=== PATIENT | female | born 1955 | race Caucasian/White ===

== ENCOUNTER → 2017-10-25 11:45 | Outpatient (CLI) | payer OTHER, SELFPAY ==
[2017-10-28 09:06] LABS: HPV APTIMA, High Risk Negative (Negative)
== END ==
PROVIDERS: Family Provider Family Medicine; PCP Family Medicine; Visit Provider Nurse Practitioner Women's Health
DX: Z12.4 Encounter for screening for malignant neoplasm of cervix (principal)
CPT/HCPCS: 88175; G0145

== ENCOUNTER → 2017-11-18 15:31 | Outpatient (CLI) | payer OTHER, SELFPAY ==
--- NOTE | 2017-11-18 15:34 | BI_ITS ---
MAMMOGRAPHY - BILATERAL SCREENING REASON FOR EXAM: Female, 62 years old. Routine annual screening examination. PERTINENT HISTORY: Non-contributory. TECHNIQUE: Digital bilateral breast an (3D mammographic acquisition) in the CC and MLO projections. 2-D mediolateral oblique (MLO) and craniocaudad (CC) views of both breasts were obtained. CAD: Full Field Digital Mammography with Computer Added Detection was performed. COMPARISON: Comparison is made with prior EXAMINATION dated October 20, 2016. FINDINGS: Breast Composition: The breasts are almost entirely fatty. There are no dominant masses or suspicious calcifications. There are stable small benign appearing bilateral axillary lymph nodes. No other significant abnormalities are identified. There has been no significant change since the prior study. BI/SCREENING MAMM (CAD), BILAT IMPRESSION: Stable bilateral screening mammogram. Yearly follow-up mammogram recommended. (A) ASSESSMENT CATEGORY: BIRADS Category 1: Negative. A letter regarding these results will be sent to the patient by the facility within 30 days. Approximately 10% of breast cancers are not detected by mammography. A normal mammogram should not delay biopsy of a clinically suspicious abnormality. [id number] Electronically Signed: Donnie Marie MD at 10:26 EDT Tel [phone], Service support ,
--- NOTE | 2017-11-18 15:37 | BD_ITS ---
STUDY: DUAL ENERGY X-RAY ABSORPTIOMETRY / DXA REASON FOR EXAM: Female, 62 years old. Postmenopausal female. Patient taking calcium and multivitamins. TECHNIQUE: Bone Mineral Density (BMD) measurements of the lumbar spine were obtained. COMPARISON: None. FINDINGS: Lumbar Spine (L1-L4): g/cm2 (1.412) / T-score (1.9) / Z-score (3.3) Findings are suggestive of normal bone density with a fracture risk. BD/Dexa Bone Density Study IMPRESSION: The patient is considered normal as outlined below according to World Felice Organization (WHO) criteria with a low fracture risk. Reference Information: The T-score is the number of standard deviations above or below the standard which is normal for young adults at their peak bone mineral density. The World Health Organization (WHO) interprets the T-scores as follows: Above -1 Normal bone density Between -1 and -2.5 Osteopenia Equal to / or below -2.5 Osteoporosis As a practical clinical guideline, osteopenia may be graded as follows: Mild -1 through -1.5 Moderate -1.6 through -2.0 Severe -2.1 through -2.4 The Z-score is the number of standard deviations above or below age-matched controls. A Z-score of less than -1.5 would be considered abnormal. References: 1. NIH Osteoporosis and Related Bone Diseases http://www.osteo.org 2. International Society for Clinical Densitometry http://www.iscd.org 3. National Osteoporosis Foundation http://www.nof.org Electronically Signed: Luis Armando Deleon DO at 9:06 EDT Tel [phone], Service support ,
== END ==
PROVIDERS: Family Provider Family Medicine; PCP Family Medicine; Visit Provider Nurse Practitioner Women's Health
DX: Z12.31 Encounter for screening mammogram for malignant neoplasm of breast (principal); Z78.0 Asymptomatic menopausal state
CPT/HCPCS: 77063; 77067; 77080

== ENCOUNTER → 2017-11-26 15:30 | Outpatient (CLI) | payer OTHER, SELFPAY ==
[2017-11-26 18:00] LABS: AST(SGOT) 29 U/L (15-37); Alanine Aminotransfer ALT/SGPT 52 U/L (13-56); Albumin, Serum 3.9 g/dL (3.2-5.0); Alkaline Phosphatase 75 U/L (45-117); Bilirubin, Direct 0.09 mg/dL (0.00-0.30); GGTP 29 U/L (5-55); Globulin 3.8 g/dL (2.2-4.2); Protein, Total 7.7 g/dL (6.4-8.2)
== END ==
PROVIDERS: Family Provider Family Medicine; PCP Family Medicine; Visit Provider Internal Medicine Gastroenterology
DX: K76.0 Fatty (change of) liver, not elsewhere classified (principal)
CPT/HCPCS: 36415; 80076; 82977

== ENCOUNTER → 2017-12-03 18:03 | Outpatient (CLI) | payer OTHER, SELFPAY ==
--- NOTE | 2017-12-03 12:13 | COLBX_PTH ---
PATIENT: JAMIE JAVIER [facility] U#:[id number] AGE/SX: 70/F ROOM: RE12/03/[address]: Dr. Fito Ahumada MD : 1955 BED: DIS: SPEC #: [id number] RECD: 12/03/17 15:28 STATUS: VALDEZ TIARA #: [id number] SJ: 12/03/17 12:[address]: Fito Ahumada DEPT: SURGICAL PATHOLOGY RECD BY: Leonid Johns ENTERED: 12/06/17 07:30 SP TYPE: COLON BX OTHR DR: Danielle Liu PA-C [facility] Tissues: Rectum, NOS Procedures: Surgery Specimen Level IV HEADER OPERATION: Colonoscopy PRE-OP DIAGNOSIS: Screening/polyp TISSUE SUBMITTED: Rectum polyp biopsies, rule out adenoma MICROSCOPIC DIAGNOSIS Rectum polyp, biopsy: Hyperplastic polyp. SJ:ervin 12/07/17 MICROSCOPIC DESCRIPTION Slides are reviewed. GROSS DESCRIPTION Received in fixative is one container labeled with the patient's name and designated rectal polyp biopsy. The specimen consists of one irregular fragment of light brasher soft tissue that measures 0.4 x 0.2 x 0.1 cm. The specimen is totally submitted in one cassette. / SJ:ervin 12/06/17 TC:1 CPT: 77192
== END ==
PROVIDERS: Family Provider Family Medicine; PCP Family Medicine; Visit Provider Internal Medicine Gastroenterology
DX: Z12.11 Encounter for screening for malignant neoplasm of colon (principal); K62.1 Rectal polyp
CPT/HCPCS: 88305

== ENCOUNTER → 2018-11-21 | Outpatient (CLI) | payer OTHER, SELFPAY ==
[2018-11-01 08:15] VITALS: BMI 32.4
--- NOTE | 2018-11-21 08:19 | BI_ITS ---
MAMMOGRAPHY - BILATERAL DIAGNOSTIC REASON FOR EXAM: Female, 63 years old. PERTINENT HISTORY: Non-contributory. TECHNIQUE: Digital examination. Mediolateral oblique (MLO) and craniocaudad (CC) views of both breasts were obtained. CAD: CAD was performed on this study. COMPARISON: November 18, 2017. FINDINGS: Breast Composition: The breasts are almost entirely fatty. There are no dominant masses or suspicious calcifications. There are stable findings compatible with subcentimeter typically benign appearing intramammary lymph nodes. There are typically benign appearing calcifications. No other significant abnormalities are identified. BI/SCREEN MAMM (CAD) W/MARIA E BILAT IMPRESSION: Stable bilateral diagnostic mammogram. ASSESSMENT CATEGORY: BIRADS Category 2: Benign. A letter regarding these results will be sent to the patient by the facility within 30 days. FOLLOW UP RECOMMENDATION: Yearly follow up mammogram recommended. (A) Approximately 10% of breast cancers are not detected by mammography. A normal mammogram should not delay biopsy of a clinically suspicious abnormality. Electronically Signed: Mandeep Hamilton MD at 10:50 EDT , Service support ,
== END | disposition home or self-care (01) ==
LOC: OPBI 08:18
PROVIDERS: Family Provider Family Medicine; PCP Family Medicine; Referring Provider Nurse Practitioner Women's Health; Visit Provider Nurse Practitioner Women's Health
DX: Z12.31 Encounter for screening mammogram for malignant neoplasm of breast (principal)
CPT/HCPCS: 77063; 77067

== ENCOUNTER → 2019-11-23 07:34 | Outpatient (CLI) | payer SELFPAY ==
[2018-11-01 08:15] VITALS: BMI 32.4
--- NOTE | 2019-11-23 07:36 | BI_ITS ---
MAMMOGRAPHY - BILATERAL SCREENING REASON FOR EXAM: Female, 64 years old. Routine annual screening examination. PERTINENT HISTORY: Non-contributory. TECHNIQUE: Digital bilateral breast maria e (3D mammographic acquisition) in the CC and MLO projections. 2-D mediolateral oblique (MLO) and craniocaudad (CC) views of both breasts were obtained. CAD: Full Field Digital Mammography with Computer Added Detection was performed. COMPARISON: Comparison is made with prior study dated November 21, 2018 and November 18, 2017. FINDINGS: Breast Composition: The breasts are almost entirely fatty. There are no dominant masses or suspicious calcifications. No other significant abnormalities are identified. There has been no significant change since the prior study. BI/SCREEN MAMM (CAD) W/MARIA E BILAT IMPRESSION: Stable bilateral screening mammogram. Yearly follow-up mammogram recommended. (A) ASSESSMENT CATEGORY: BIRADS Category 1: Negative. A letter regarding these results will be sent to the patient by the facility within 30 days. Approximately 10% of breast cancers are not detected by mammography. A normal mammogram should not delay biopsy of a clinically suspicious abnormality. [id number] Electronically Signed: Donnie Marie, at 8:58 EDT , Service support ,
== END ==
PROVIDERS: Family Provider Family Medicine; PCP Family Medicine; Referring Provider Nurse Practitioner Women's Health; Visit Provider Nurse Practitioner Women's Health
DX: Z12.31 Encounter for screening mammogram for malignant neoplasm of breast (principal)
CPT/HCPCS: 77063; 77067

== ENCOUNTER → 2020-11-26 07:37 | Outpatient (CLI) | payer MEDICARE, SELFPAY ==
[2019-11-23 08:15] VITALS: BMI 32.4
--- NOTE | 2020-11-26 07:39 | BI_ITS ---
MAMMOGRAPHY - BILATERAL SCREENING REASON FOR EXAM: Female, 65 years old. Routine annual screening examination. PERTINENT HISTORY: Non-contributory. Occasional right lateral breast soreness. TECHNIQUE: Digital bilateral breast maria e (3D mammographic acquisition) in the CC and MLO projections. 2-D mediolateral oblique (MLO) and craniocaudad (CC) views of both breasts were obtained. CAD: Full Field Digital Mammography with Computer Added Detection was performed. COMPARISON: Comparison is made with prior study of 11/23/2019 and 11/21/2018. FINDINGS: Breast Composition: There are scattered areas of fibroglandular density. There are no dominant masses or suspicious calcifications. Stable small benign-appearing bilateral axillary lymph nodes. No other significant abnormalities are identified. There has been no significant change since the prior study. BI/SCRN MAMM (CAD)W/MARIA E BILAT IMPRESSION: Stable bilateral screening mammogram. Yearly follow-up mammogram recommended. (A) ASSESSMENT CATEGORY: BIRADS Category 2: Benign. A letter regarding these results will be sent to the patient by the facility within 30 days. Approximately 10% of breast cancers are not detected by mammography. A normal mammogram should not delay biopsy of a clinically suspicious abnormality. [id number] Electronically Signed: Donnie Marie MD at 8:24 EDT , Service support ,
[2020-11-28 18:37] LABS: HPV Reflexed? NOT INDICATED
== END ==
PROVIDERS: PCP Family Medicine; Referring Provider Family Medicine; Visit Provider Family Medicine
DX: Z12.31 Encounter for screening mammogram for malignant neoplasm of breast (principal); Z13.820 Encounter for screening for osteoporosis; Z12.4 Encounter for screening for malignant neoplasm of cervix
CPT/HCPCS: 77063; 77067; 88175; G0145

== ENCOUNTER → 2021-04-29 08:11 | Outpatient (CLI) | payer MEDICARE, SELFPAY ==
--- NOTE | 2021-04-29 08:25 | RAD_ITS ---
PROCEDURE: Fluoroscopic guided right shoulder Injection DATE: 04/29/2021. INDICATION: Female, 66 years old. Chronic right shoulder pain. PHYSICIAN: Donnie Marie M.D. MEDICATIONS: 12 mg of BETAMETHASONE and 4 cc of 1% LIDOCAINE. 2% lidocaine administered subcutaneously for local anesthesia. ACCESS SITE: Right shoulder. NEEDLE: 22-gauge spinal needle. FLUOROSCOPY TIME (if supplied): (0:54) minutes/seconds. One image was submitted. FINDINGS: The risks, benefits, and alternatives to the procedure were explained to the patient. The specific risks of bleeding, infection, and neurovascular injury were detailed and accepted. Witnessed informed consent was obtained. A 22-gauge spinal needle was positioned under radiographic fluoroscopic localization. Approximately 2 cc of ISOVUE-300 instilled for localization purposes. Medication was then injected. The patient tolerated the procedure well without any immediate complications. RAD/Inj/Asp Rene Jt Should/Hip/Knee IMPRESSION: 1. Successful fluoroscopic guided right shoulder injection. Electronically Signed: Donnie Marie MD at 9:04 EDT , Service support ,
[2021-04-29] MEDS: Betamethasone/Betamethasone 30 MG/5 ML Vial 12 MG INTRAARTIC (08:40)
[2021-04-29] MEDS: Lidocaine 2% (5ml sdv) 5 ML VIAL.MPF 1 ML INFILT (08:40)
[2021-04-29] MEDS: Lidocaine 1% (5 ml sdv) 5 ML Vial 4 ML OPERA.SITE (08:40)
== END ==
PROVIDERS: PCP Family Medicine; Referring Provider Specialist; Visit Provider Specialist
DX: M19.011 Primary osteoarthritis, right shoulder (principal)
CPT/HCPCS: 20610; 77002; Q9965; J0702

== ENCOUNTER → 2021-11-27 | Outpatient (CLI) | payer MEDICARE, SELFPAY ==
--- NOTE | 2021-11-27 07:52 | BI_ITS ---
MAMMOGRAPHY - BILATERAL SCREENING REASON FOR EXAM: Female, 66 years old. Routine annual screening examination. PERTINENT HISTORY: Non-contributory. TECHNIQUE: Digital bilateral breast maria e (3D mammographic acquisition) in the CC and MLO projections. 2-D mediolateral oblique (MLO) and craniocaudad (CC) views of both breasts were obtained. CAD: Full Field Digital Mammography with Computer Added Detection was performed. COMPARISON: Comparison is made with prior study of 11/26/2020 and 11/23/2019. FINDINGS: Breast Composition: There are scattered areas of fibroglandular density. There are no dominant masses or suspicious calcifications. Stable small benign appearing bilateral axillary nodes. No other significant abnormalities are identified. There has been no significant change since the prior study. BI/SCRN MAMM (CAD)W/MARIA E BILAT IMPRESSION: Stable bilateral screening mammogram. Yearly follow-up mammogram recommended. (A) ASSESSMENT CATEGORY: BIRADS Category 2: Benign. A letter regarding these results will be sent to the patient by the facility within 30 days. Approximately 10% of breast cancers are not detected by mammography. A normal mammogram should not delay biopsy of a clinically suspicious abnormality. [id number] Electronically Signed: Donnie Marie MD at 8:51 EDT ,
== END | disposition home or self-care (01) ==
LOC: OPBI 07:50
PROVIDERS: PCP Family Medicine; Visit Provider Nurse Practitioner Women's Health
DX: Z12.31 Encounter for screening mammogram for malignant neoplasm of breast (principal)
CPT/HCPCS: 77063; 77067

== ENCOUNTER → 2021-12-10 | Outpatient (CLI) | payer MEDICARE, SELFPAY ==
--- NOTE | 2021-12-10 10:48 | BD_ITS ---
STUDY: DUAL ENERGY X-RAY ABSORPTIOMETRY / DXA REASON FOR EXAM: Female, 66 years old. Postmenopausal TECHNIQUE: Bone Mineral Density (BMD) measurements of lumbar spine and bilateral hips were obtained. COMPARISON: Comparison is made with prior study of 11/18/2017. FINDINGS: Lumbar Spine (L1-L4): g/cm2 (1.220) / T-score (1.8) / Z-score (3.7) Findings are suggestive of normal bone density with a low fracture risk. Left Femur Total: g/cm2 (1.099) / T-score (1.3) / Z-score (2.6) Left Femoral Neck: g/cm2 (0.966) / T-score (1.1) / Z-score (2.7) Right Femur Total: g/cm2 (1.087) / T-score (1.2) / Z-score (2.5) Right Femoral Neck: g/cm2 (0.938) / T-score (0.8) / Z-score (2.4) The T-Scores on the most recent prior examination were: Lumbar Spine (L1-L4): There has been worsening of bone density since the previous examination. Left Femur Total: which represents a worsening of 5%. Right Femur Total: which represents a worsening of 5.2%. BD/Dexa Bone Density Study IMPRESSION: The patient is considered normal as outlined below according to World Felice Organization (WHO) criteria with a low fracture risk. There has been worsening of bone density since the previous examination. Reference Information: The T-score is the number of standard deviations above or below the standard which is normal for young adults at their peak bone mineral density. The World Health Organization (WHO) interprets the T-scores as follows: Above -1 Normal bone density Between -1 and -2.5 Osteopenia Equal to / or below -2.5 Osteoporosis As a practical clinical guideline, osteopenia may be graded as follows: Mild -1 through -1.5 Moderate -1.6 through -2.0 Severe -2.1 through -2.4 The Z-score is the number of standard deviations above or below age-matched controls. A Z-score of less than -1.5 would be considered abnormal. References: 1. NIH Osteoporosis and Related Bone Diseases www osteo.org 2. International Society for Clinical Densitometry www iscd.org 3. National Osteoporosis Foundation www nof.org Electronically Signed: Donnie Marie MD at 10:49 EDT ,
== END | disposition home or self-care (01) ==
LOC: OPBD 10:39
PROVIDERS: PCP Family Medicine; Visit Provider Nurse Practitioner Women's Health
DX: Z78.0 Asymptomatic menopausal state (principal)
CPT/HCPCS: 77080

== ENCOUNTER 2022-08-12 09:17 | Emergency (ER) | payer MEDICARE, SELFPAY ==
[2022-08-12] VITALS (12 sets, daily range): BP systolic 147–164; BP diastolic 74–91; PULSE 75–105; RESP 13–24; TEMP 37.1; O2SAT 91–96; BMI 33.1
--- NOTE | 2022-08-12 09:30 | CT_ITS ---
STUDY: CT BRAIN WITHOUT CONTRAST REASON FOR EXAM: Female, 67 years old. Paresthesias RADIATION DOSAGE (If Supplied By Facility): CTDIvol = ( 44.99 ) mGy, DLP = ( 796.11 ) mGycm TECHNIQUE: Transaxial CT imaging of the brain was performed without administration of intravenous contrast material. Individualized dose optimization techniques were used for this CT. COMPARISON: No relevant priors. FINDINGS: Normal soft tissue structures. Normal calvarium. Normal size ventricles and extra-axial spaces for the patient''s age. Normal white matter tracts of the cerebral hemispheres. Normal basal ganglia and thalami. Normal brainstem. Normal cerebellum. There is no intracranial hemorrhage. There are no findings of an acute ischemic infarction. Normal visualized paranasal sinuses. CT/Brain/Head without Contrast IMPRESSION: Normal unenhanced CT scan of the brain. Electronically Signed: Donnie Marie MD at 10:41 EST ,
--- NOTE | 2022-08-12 09:37 | EX.ED.DYSGE1 ---
HPI History of Present Illness Chief Complaint: Neuro S/Sx Informant: patient Onset/Context/Timing Onset: Yesterday Current Severity: Mild Maximum Severity: Mild Narrative Narrative: Patient presents secondary to lower extremity paresthesias and weakness. She states she noted numbness and tingling in both feet last evening. She states she does have some numbness and tingling up into her legs today but it is not as severe as what is in her feet. She is able to walk but states she is having more difficulty doing so. She denies back pain. No fever or chills. She had right shoulder surgery 5 weeks ago and had the shingles vaccine on August 03. [facility] Medical History Anxiety Bone spur of left foot GERD (gastroesophageal reflux disease) Hyperlipidemia Hypertension Narcolepsy Home Medications calcium phosphate 250 mg-vit D3 12.5 mcg (500 unit) chewable tablet (Citracal-D3 Gummies) tab PO 10/25/17 [History Last Taken Unknown] qqsqzwogcmm-mrp-qiynzksim-hrb 149-hyalur 500 mg-500 mg-66.7 mg tablet (Ytjbojjyepe-Odcveykvkgk-ZOV (with antiox)) tab PO 10/25/17 [History Last Taken Unknown] hydrochlorothiazide 25 mg tablet 25 mg PO QAM 10/25/17 [History Last Taken Unknown] lisinopril 10 mg tablet 10 mg PO QDAY 10/25/17 [History Last Taken Unknown] omega-3 fatty acids 1,000 mg capsule (Fish Oil Concentrate) 1,000 mg PO QDAY 10/25/17 [History Last Taken Unknown] omeprazole 20 mg capsule,delayed release 20 mg PO QDAY 10/25/17 [History Last Taken Unknown] paroxetine HCl 20 mg tablet 20 mg PO QAM 10/25/17 [History Last Taken Unknown] simvastatin 10 mg tablet 10 mg PO QPM 10/25/17 [History Last Taken Unknown] vitamin E (dl, acetate) 180 mg (400 unit) capsule 400 unit PO QDAY 10/25/17 [History Last Taken Unknown] docosahexaenoic acid 200 mg capsule ( DHA) mg PO 11/26/20 [History Last Taken Unknown] modafinil 100 mg tablet 200 mg PO DAILY 11/26/20 [History Last Taken Unknown] turmeric root extract 1,053 mg tablet 1,076 mg PO DAILY 11/26/20 [History Last Taken Unknown] Allergy/AdvReac Type Severity Reaction Status Date / Time No Known Allergies Allergy Verified 08/12/22 09:19 Family History Father Cirrhosis of liver Surgical History Hx of foot surgery S/p bilateral carpal tunnel release S/P right knee arthroscopy S/P tonsillectomy Status post left partial knee replacement Status post right partial knee replacement Social History Smoking Status: Never smoker alcohol intake: current alcohol intake frequency: holidays/special occasions only details: none substance use type: does not use caffeine: Yes what type of physical activity do you participate in: walking seatbelt use: always do you feel safe at home: Yes additional social history: - Leonid- Self employed in [employer] 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[employer] ROS ROS ED Constitutional Constitutional ED: Denies chills or fever(s) Eyes Eyes: Denies change in vision or discharge from eye(s) ENT ENT ED: Denies discharge from eye(s), rhinorrhea or sore throat Cardiovascular Cardiovascular: Denies chest pain or palpitations Respiratory/Chest Respiratory/Chest: Denies cough or dyspnea Gastrointestinal Gastrointestinal: Denies abdominal pain, diarrhea, nausea or vomiting Genitourinary Genitourinary ED: Denies difficulty urinating or dysuria Musculoskeletal Musculoskeletal: Denies back pain or extremity pain Integumentary Denies Abrasions or rash Neurologic Neurologic: Reports paresthesias and weakness; Denies headache(s) Psychiatric Psychiatric: Denies anxiety or depression Allergic/Immunologic Allergic/Immunologic ED: Denies lip swelling or urticaria EXAM Physical Exam Const Vital Signs: 08/12/22 09:19 08/12/22 12:00 08/12/22 13:50 Temperature 98.8 F Temperature Source Oral Pulse Rate 105 H 95 95 Respiratory Rate 24 H 16 16 Blood Pressure 157/91 H 164/89 H 149/86 H Blood Pressure Mean 113 114 107 Pulse Ox 94 96 92 Oxygen Delivery Method Room Air Room Air 08/12/22 14:24 Temperature Temperature Source Pulse Rate 97 Respiratory Rate 16 Blood Pressure 147/75 H Blood Pressure Mean 99 Pulse Ox 93 Oxygen Delivery Method Room Air Positive well nourished and well developed General Appearance ED: well developed HEENT Reports normocephalic and head/scalp atraumatic Eyes PERRL and EOMs intact bilaterally Neck supple Chest Wall inspection of chest normal and palpation of chest normal Resp normal respiratory effort and clear to auscultation bilaterally Cardio regular rate and regular rhythm GI normal to inspection, nondistended, normoactive bowel sounds Palpation: soft Extremity normal to inspection Neuro oriented x3 Neuro Narrative: Patient reports decreased sensation to light touch bilateral feet. Good pulses are noted. Good strength is noted in the lower extremities on testing. Decreased bilateral patellar reflexes. Sensorium / Orientation: alert Psych mental status grossly normal Skin no rashes or lesions noted MDM MDM MDM Narrative Medical decision making narrative: Lab work obtained to evaluate for electrolyte abnormality or infection. CT scan of the head obtained. EKG obtained. Lab Data Attestation: I reviewed the patient's lab results. Labs: Laboratory Results - last 24 hr 08/12/22 08/12/22 08/12/22 09:26 09:45 09:45 WBC 7.1 RBC 4.40 Hgb 13.8 Hct 42.0 MCV 95.5 MCH 31.4 MCHC 32.9 RDW Std Deviation 49.7 H RDW Coeff of Yousuf 14.3 Plt Count 262 MPV 9.1 Immature Gran % (Auto) 1.300 H Neut % (Auto) 83.8 H Lymph % (Auto) 9.4 L [place] % (Auto) 4.2 Eos % (Auto) 0.7 Baso % (Auto) 0.6 Absolute Neuts (auto) 6.0 Absolute Lymphs (auto) 0.67 L Nucleated RBC % 0 ESR 28 PT 13.0 INR 1.0 APTT 41.1 H Sodium Potassium Chloride Carbon Dioxide Anion Gap BUN Creatinine Estim Creat Clear Calc Est GFR (MDRD) Af Amer Est GFR (MDRD) Non-Af BUN/Creatinine Ratio Glucose Calcium C-React Prot Ext Range Urine Color Urine Clarity Urine pH Ur Specific [place] Urine Protein Urine Glucose (UA) Urine Ketones Urine Occult Blood Urine Nitrite Urine Bilirubin Urine Urobilinogen Ur Leukocyte Esterase Urine RBC Urine WBC Ur Squamous Epith Cells Urine Bacteria Urine Mucus POC Glucose 143 H 08/12/22 08/12/22 09:45 12:00 WBC RBC Hgb Hct MCV MCH MCHC RDW Std Deviation RDW Coeff of Yousuf Plt Count MPV Immature Gran % (Auto) Neut % (Auto) Lymph % (Auto) [place] % (Auto) Eos % (Auto) Baso % (Auto) Absolute Neuts (auto) Absolute Lymphs (auto) Nucleated RBC % ESR PT INR APTT Sodium 139 Potassium 3.9 Chloride 105 Carbon Dioxide 28.0 Anion Gap 6 BUN 20 H Creatinine 0.91 Estim Creat Clear Calc 58.34 Est GFR (MDRD) Af Amer 79 Est GFR (MDRD) Non-Af 65 BUN/Creatinine Ratio 21.9 H Glucose 152 H Calcium 9.5 C-React Prot Ext Range 8.56 H Urine Color Yellow Urine Clarity Sl. Cloudy Urine pH 8.0 Ur Specific [place] 1.010 Urine Protein 15 H Urine Glucose (UA) Normal Urine Ketones Negative Urine Occult Blood 10 H Urine Nitrite Positive H Urine Bilirubin Negative Urine Urobilinogen Normal Ur Leukocyte Esterase 500 H Urine RBC 0-5 SEEN Urine WBC 25-50 SEEN Ur Squamous Epith Cells 0 SEEN Urine Bacteria 1+ Urine Mucus 0 SEEN POC Glucose Radiography Diagnostic Testing: Clinical Impression(s) from Imaging Studies Brain CT 08/12/22 09:30 IMPRESSION: Normal unenhanced CT scan of the brain. Electronically Signed: Donnie Marie MD at 10:41 EST , EKG Initial EKG: Attestation: I personally reviewed and interpreted this EKG as follows: Interpretation: Sinus Rhythm (Sinus at 99 with no acute ischemia.) Treatment and Re-Evaluation Narrative: My initial concern would evaluate the patient was for Guillain-Godinez? syndrome. CT scan of the head is obtained and reveals no acute abnormalities. She denies any back pain. CBC reveals normal white count at 7.1 with 83% neutrophils. Coags are unremarkable. Chemistry studies are normal. Sed rate is 28 and CRP is 8.56. I did observe the patient going down the garcia to the restroom several times during her visit. She is holding onto her to help ambulate. In light of this urinalysis is obtained and does reveal infection. She has positive nitrites with 25-50 white cells and 1+ bacteria. Patient has been given a dose of IV Rocephin and urine culture was sent. I obtained a virtual neurology consult. 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 He feels the patient should be admitted and observed at a facility that has inpatient neurology available to do repeated neurology exams and a lumbar puncture. I do not have in-house radiologist today to obtain a fluoroscopic guided lumbar puncture. This was discussed with patient and at bedside. She would prefer to go to [facility]. I spoke with neurology at [facility] and patient has been accepted. He does not feel that any further testing needs to be performed at this time, test when the patient gets to the [facility] facility. Patient be signed out to oncoming physician for further monitoring while awaiting transfer bed. 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 Prescriptions: No Action omeprazole 20 mg capsule,delayed release(DR/EC) 20 mg PO QDAY paroxetine HCl 20 mg tablet 20 mg PO QAM simvastatin 10 mg tablet 10 mg PO QPM lisinopril 10 mg tablet 10 mg PO QDAY hydrochlorothiazide 25 mg tablet 25 mg PO QAM caegbxsdlpz-hwy-tnphefjzn-hrb 149-hyalur 500 mg-500 mg-66.7 mg tablet 500-500-66.7 mg tablet PO calcium phosphate-vitamin D3 [Citracal-D3 Gummies] 250 mg calcium- 500 unit tablet,chewable PO omega-3 fatty acids [Fish Oil Concentrate] 1,000 mg capsule 1,000 mg PO QDAY vitamin E (dl, acetate) 400 unit capsule 400 unit PO QDAY modafinil 100 mg tablet 200 mg PO DAILY turmeric root extract 1,053 mg tablet 1,076 mg PO DAILY DHA 200 mg capsule PO Primary Care Provider: Danielle Liu Referrals: Danielle Liu, JOHN [Primary Care Provider] - Disposition Disposition: Acute Care Hospital Discharge Location: [facility]
[2022-08-12 09:46] LABS: Bedside Glucose 143 mg/dL (74-106)
[2022-08-12 09:55] LABS: Absolute Lymphocyte Count 0.67 X10^3/uL (0.83-4.51); Basophil# 0.04 X10^3/uL; Basophil% 0.6 % (0-1); Eosinophil# 0.05 X10^3/uL; Eosinophils% 0.7 % (0-5); Erythrocyte Sedimentation Rate 28 mm/hr (0-30); Hemoglobin 13.8 g/dL (12.0-15.0); Lymphocyte # 0.67 X10^3/ul (0.83-4.51); Lymphocyte % 9.4 % (19-41); Mean Corp Hgb Conc 32.9 g/dL (32-36); Mean Corpuscular Hgb 31.4 pg (27.0-32.0); Mean Corpuscular Volume 95.5 fL (81-99); Mean Platelet Vol. 9.1 fl (6.2-12.0); Monocyte% 4.2 % (0-10); NRBC Flagged by Analyzer 0 % (0-5); Neutrophil # 5.96 X10^3/uL (2.7-7.7); Neutrophil % 83.8 % (47-70); Platelet Count 262 K/mm3 (150-450); RBC Distribution Width CV 14.3 % (11.6-14.6); RBC Distribution Width SD 49.7 fl (35.1-43.9); White Blood Count 7.1 K/mm3 (4.4-11.0)
[2022-08-12 09:59] LABS: Partial Thromboplast Time 41.1 Seconds (24.1-36.2)
[2022-08-12 10:03] LABS: Anion Gap 6 (5-15); BUN 20 mg/dL (7-18); BUN/Creat Ratio 21.9 RATIO (10-20); CRP 8.56 mg/L (0.0-3.0); Calcium,Total 9.5 mg/dL (8.5-10.1); Chloride 105 mmol/L (98-107); Creatinine, Serum 0.91 mg/dL (0.55-1.02); EST Glomerular Filtration Rate 65 mL/min (>60); Est Glom Filt Rate - Afr Amer 79 mL/min (>60); Estimated Creatinine Clearance 58.34 ml/min; Glucose 152 mg/dL (74-106); Potassium 3.9 mmol/L (3.5-5.1); Sodium Level 139 mmol/L (136-145)
[2022-08-12] MEDS: 0.9% Normal Saline 1,000 ML 150 ML IV (10:41)
--- NOTE | 2022-08-12 12:03 | TELEMED_ITS ---
[facility] has confirmed receipt of a request for visit. This document confirms receipt of the order initiating the consult. To find the results of the consultation, please view the patient's reports for the scanned Telemed Consult.
[2022-08-12 12:21] LABS: Mucous, Urine 0 SEEN /hpf (<or=2+); Squamous Epithelial Cells - UA 0 SEEN /hpf (5-10)
[2022-08-12 12:24] LABS: Color, Urine Yellow (Yellow); Glucose, Dipstick Normal (Normal); Ketone-Dipstick Negative (Negative); Leukocyte Esterase-Dipstick 500 /ul (Negative); Nitrite-Dipstick Positive (Negative); Occult Blood-Urine 10 /ul (Negative); Protein-Dipstick 15 mg/dl (Negative); Urine Bilirubin Dipstick Negative (Negative); Urine Clarity Sl. Cloudy (Clear); Urine Urobilinogen Normal (Normal)
[2022-08-12 12:38] LABS: Bacteria 1+ /hpf (None Seen); Red Blood Cells-Urine 0-5 SEEN /hpf (0-5); White Blood Cells 25-50 SEEN /hpf (0-5)
[2022-08-12] MEDS: Ceftriaxone 1 GM/50 ML BAG IV (13:48)
--- NOTE | 2022-08-12 20:34 | NURSING ---
CALLED THE [facility] TRANSFER LINE AND THEY STATED THEY ARE STILL WORKING ON FINDING A BED- AND MAY HAVE ONE OPEN BY LATE [facility]IM[facility].
[2022-08-13 01:45] VITALS: PULSE 75; RESP 13; O2SAT 95
[2022-08-13 06:00] VITALS: PULSE 77; RESP 18; O2SAT 98
--- NOTE | 2022-08-13 06:13 | NURSING ---
CALLED [facility] TRANSFER LINE FOR AN UPDATE- THERE IS STILL NO BED AVAILABLE.
[2022-08-13 07:00] VITALS: RESP 16
[2022-08-13 08:00] VITALS: RESP 18
[2022-08-13 09:00] VITALS: BP 153/96; PULSE 93; RESP 16; O2SAT 96
--- NOTE | 2022-08-13 10:35 | RAD_ITS ---
PROCEDURE: Fluoroscopic guided Lumbar Puncture. DATE: 08/13/2022. CLINICAL INDICATION: Bilateral lower extremity weakness and numbness. PHYSICIAN: Donnie Marie M.D. MEDICATIONS: 1% lidocaine administered subcutaneously for local anesthesia. ACCESS SITE: Lower posterior back. NEEDLE: 22-gauge spinal needle. SPECIMEN: Approximately 13 mL clear]CSF fluid. FLUOROSCOPY TIME (if supplied): (1:01) minutes/seconds. No images were taken. COMPLICATIONS: None immediate. The risks, benefits, and alternatives to the procedure were explained to the patient. The specific risks of bleeding, infection, and neurovascular injury were detailed and accepted. Witnessed informed consent was obtained. The patient was placed on the fluoroscopic table in the prone position. The level for needle entry was determined and marked. The overlying skin was cleaned and prepped in the usual sterile fashion. 2% lidocaine was administered subcutaneously for local anesthesia. Under fluoroscopic guidance a 22-gauge spinal needle was advanced. The thecal sac was entered at the L3- L4 vertebral level. The inner stylet was removed. There was spontaneous flow of clear CSF fluid. The patient was placed in a reversed Trendelenburg position. Approximately 13 mL of cerebrospinal fluid was collected using gravity. The specimen was collected and submitted to the laboratory for further evaluation. The needle was withdrawn,. Hemostasis was achieved and a sterile dressing placed. The patient tolerated the procedure well without any immediate complications. The patient was placed supine with head elevated and returned to the floor in stable condition. RAD/Dx Lumbar Puncture w/IMG Guide IMPRESSION: Successful fluoroscopic-guided lumbar puncture. Electronically Signed: Donnie Marie MD at 12:42 EST ,
[2022-08-13] MEDS: Lidocaine 2% (20 ml mdv) 20 ML Vial INFILT (10:58)
--- NOTE | 2022-08-13 11:47 | ED.RN ---
CALLED [facility] TRANSFER LINE TO SEE IF THIS PATIENT CAN BE TRANSFERRED FROM ED TO ED TO ANY OF THEIR FACILITIES, TRANSFER LINE HIGHLY DOUBTS A CASE LIKE THIS CAN GO ED TO ED, BUT WILL CHECK AND CALL US BACK WITH AN ANSWER.
[2022-08-13 12:02] LABS: Glucose Spinal Fluid 72 mg/dL (40-75)
--- NOTE | 2022-08-13 12:06 | ED.RN ---
[facility] CALLED WITH BED ASSIGNMENT. PT TO [facility] 27. FAMILY UPDATED
--- NOTE | 2022-08-13 12:16 | ED.RN ---
PT TO GO TO [facility], POD C. ROOM 27. PT UPDATED
--- NOTE | 2022-08-13 12:33 | ED.RN ---
CALLED TO SET UP TRANSPORT FOR PATIENT TO [facility], ETA IS 1300
[2022-08-13 12:49] VITALS: PULSE 79; RESP 16; O2SAT 100
[2022-08-13 13:15] LABS: CSF Color COLORLESS (Colorless)
[2022-08-13 13:16] LABS: Appearance CSF (character) CLEAR (Clear); Tested Tube # 3
[2022-08-13 13:17] LABS: RBC Count, Spinal Fluid 0 /mm-3 (None seen); White Count, CSF 0 /mm-3 (0 - 5)
[2022-08-13 13:18] LABS: Body Fluid QC Type(s) BF1Q
[2022-08-14 15:28] LABS: Pathologist Review Reviewed
== END 2022-08-13 12:50 | disposition short-term general hospital (02) ==
PROVIDERS: Emergency Medicine; Emergency Provider Emergency Medicine; PCP Family Medicine; Visit Provider Emergency Medicine
DX: G61.0 Guillain-Barre syndrome (principal); G47.33 Obstructive sleep apnea (adult) (pediatric); R20.2 Paresthesia of skin
CPT/HCPCS: 62328; 70450; 80048; 81001; 82945; 82962; 84157; 85025; 85610; 85652; 85730; 86140; 87070; 87086; 87088; 87205; 89050; 89051; 93005; 96365; 99285; A4216

== ENCOUNTER 2022-08-19 22:00 | Inpatient (IN) | payer MEDICARE, SELFPAY ==
[2022-08-19 22:23] VITALS: BP 189/97; PULSE 96; RESP 20; TEMP 37.6; O2SAT 93; BMI 31.1
[2022-08-19 22:35] VITALS: PULSE 96; RESP 20; O2SAT 93
[2022-08-20] MEDS: traMADol 50 MG Tablet PO ×3 (00:18→12:53)
[2022-08-20] MEDS: Senna/Docusate Sodium 1 Tablet 2 TABLET PO (00:19)
[2022-08-20] MEDS: Acetaminophen 325 MG Tablet PO (00:41)
[2022-08-20 01:20] VITALS: BP 186/88; PULSE 85
[2022-08-20 05:38] LABS: Absolute Lymphocyte Count 0.89 X10^3/uL (0.83-4.51); Absolute Neutrophil Count 2.7 X10^3/uL (2.0-7.7); Basophil# 0.03 X10^3/uL; Basophil% 0.7 % (0-1); Eosinophil# 0.01 X10^3/uL; Eosinophils% 0.2 % (0-5); Hematocrit 45.6 % (37-47); Hemoglobin 15.3 g/dL (12.0-15.0); Lymphocyte # 0.89 X10^3/ul (0.83-4.51); Lymphocyte % 21.2 % (19-41); Mean Corp Hgb Conc 33.6 g/dL (32-36); Mean Corpuscular Hgb 31.5 pg (27.0-32.0); Mean Platelet Vol. 9.4 fl (6.2-12.0); Monocyte% 14.3 % (0-10); NRBC Flagged by Analyzer 0 % (0-5); Neutrophil # 2.65 X10^3/uL (2.7-7.7); Neutrophil % 63.1 % (47-70); Platelet Count 251 K/mm3 (150-450); RBC Distribution Width CV 14.2 % (11.6-14.6); RBC Distribution Width SD 49.1 fl (35.1-43.9); Red Blood Count 4.85 M/mm3 (4.2-5.4); White Blood Count 4.2 K/mm3 (4.4-11.0)
[2022-08-20 06:07] LABS: Anion Gap 9 (5-15); BUN 26 mg/dL (7-18); BUN/Creat Ratio 28.6 RATIO (10-20); Chloride 94 mmol/L (98-107); Creatinine, Serum 0.91 mg/dL (0.55-1.02); EST Glomerular Filtration Rate 66 mL/min (>60); Est Glom Filt Rate - Afr Amer 79 mL/min (>60); Estimated Creatinine Clearance 58.34 ml/min; Glucose 104 mg/dL (74-106); Magnesium 2.3 mg/dL (1.6-2.6); Potassium 3.6 mmol/L (3.5-5.1); Sodium Level 129 mmol/L (136-145)
[2022-08-20 07:40] VITALS: O2SAT 97
[2022-08-20] MEDS: Calcium (Elemental) 500 MG Tablet 1000 MG PO (07:52)
[2022-08-20] MEDS: Multivitamins,Therapeutic Tablet 1 TABLET PO (07:52)
[2022-08-20] MEDS: Carvedilol 3.125 MG TABLET PO ×2 (07:52→18:00)
[2022-08-20] MEDS: hydroCHLOROthiazide 25 MG Tablet PO (07:53)
[2022-08-20] MEDS: Pantoprazole Sodium 40 MG Tablet PO (07:54)
[2022-08-20] MEDS: Lisinopril 40 MG Tablet PO (07:55)
[2022-08-20 08:23] VITALS: BP 140/78; PULSE 104; RESP 18; TEMP 36.2; O2SAT 97
--- NOTE | 2022-08-20 14:14 | NURSING ---
appts for neurology rescheduled for a later date.
--- NOTE | 2022-08-20 20:09 | PCM.HP.STD ---
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 HPI Narrative SOPHIA JAVIER, is a 67 YO F with a PMH of HTN, anxiety/depression, LISA, GERD, HLD and narcolepsy who presented to the emergency department at [facility] on 08/12/2022 complaining of numbness and weakness in her lower extremities. It had started the preceding evening. The tingling and numbness was worse in her feet. She was having difficulty ambulating. Recent hx was + for a reverse shoulder procedure done by Dr. Johnson 6 weeks prior to her presentation to the ED. She also had a Shingrix vaccine 10 days prior to presenting to the ED. On AK she had decreased sensation to light touch in both feet. she had good strength in her legs but she had absent patellar reflexes. Lab was unremarkable with the exception of an elevated C-reactive protein at 8.56 and a random blood sugar of 152. Urine had 25-50 WBCs per high-power field and was positive for nitrites. she was treated with antibiotics. Urine culture grew mixed GM _ and GM +'s. Noncontrast CT brain was normal. An LP was done which showed a protein of 46 and a glucose of 72 with 0 white blood cells and 0 red blood cells. She was treated with 6 doses of IVIG Consultation was obtained with teleneurology who felt Guillain-Godinez? was a consideration and transfer to a facility with an onsite neurologist was recommended. She was transferred to [facility]. She was treated with IVIG for 6 days at [facility]. NIF's were monitored serially and remained in the normal range of -40-60. A CT scan of her spine showed some degenerative disc disease of the lumbar spine but nothing acute. She was seen by PT/OT during her stay at [facility] and due to bilateral lower extremity leg weakness with difficulty ambulating admission to acute rehab was recommended post discharge. Sophia was transferred to [facility] acute rehab on 08/19/2022 for 3 hours of therapy daily to restore function/independence at or near her prior level. Afebrile VSS Maintaining appropriate oxygen saturation on RA Oral intake is poor Discussed with nursing - she has not been sleeping well for the past 5-6 nights. She has also not had a BM for 5 days. Appetite has been decreased but, prior to being diagnosed with Guillain-Godinez? she had a good appetite. She slept well at home prior to being in the hospital for GB. Reviewed the PT/OT notes Medication list reviewed. She is not on pharmacologic prophylaxis for DVT. She tells me she was getting shots in her belly at [facility]. All lab was personally reviewed. White blood cell count is mildly decreased at 4.2. Hemoglobin is 15.3 which is up from 13.8 on 08/12/2022. Platelet count is normal. Differential is unremarkable. Sodium is low at 129 and the potassium is 3.6. Chloride is also low at 94. Serum bicarb is normal. BUN is elevated at 26 with a creatinine of 0.91. Phosphorus and magnesium are normal. Sophia tells me that she had some problems with her liver in the past and she does not like to take Tylenol. Her father of cirrhosis and he never was a drinker. Oxycodone made her confused and nauseated. She was on [place] when she came to us and she won't take it. She has been transitioned to Tramadol which work but, wears off after a few hours. FORMERLY [facility], [facility]–1983 Medical History (Updated 08/20/22 @ 21:[address] Lesley Ahumada, ) Anxiety with depression Bone spur of left foot GERD (gastroesophageal reflux disease) Hyperlipidemia Hypertension Narcolepsy Obstructive sleep apnea Home Medications zuvtznkmqhy-zcd-gqgkrgeyp-hrb 149-hyalur 500 mg-500 mg-66.7 mg tablet (Jcxzaggfxrn-Hpvliimholv-TKE (with antiox)) 1 tab PO supplement 10/25/17 [History Last Taken Unknown] hydrochlorothiazide 25 mg tablet 25 mg PO QAM htn 10/25/17 [History Last Taken Unknown] lisinopril 10 mg tablet 40 mg PO QDAY htn 10/25/17 [History Last Taken Unknown] calcium 600 mg capsule 1,200 mg PO supplement 08/19/22 [History Last Taken Unknown] docusate sodium 100 mg capsule 100 mg PO BID stool softener 08/19/22 [History Last Taken Unknown] gabapentin 300 mg capsule 300 mg PO QHS nerve pain 08/19/22 [History Last Taken Unknown] pantoprazole 40 mg tablet,delayed release 40 mg PO DAILY stomach acid 08/19/22 [History Last Taken Unknown] sennosides 8.6 mg tablet (senna) 8.6 mg PO BID stool softeners 08/19/22 [History Last Taken Unknown] tramadol 50 mg tablet 50 mg PO Q6H PRN pain 1-10 08/19/22 [History Last Taken Unknown] Multi-Vitamin 1 tablet DAILY SUPPLEMENT 08/20/22 [History Last Taken Unknown] carvedilol 3.125 mg tablet 3.125 mg PO BID HTN 08/20/22 [History Last Taken Unknown] paroxetine HCl 20 mg tablet (Paxil) 20 mg PO DAILY ANTI DEPRESSANT 08/20/22 [History Last Taken Unknown] polyethylene glycol 3350 17 gram oral powder packet (Miralax) 17 g PO DAILY STOOL SOFTENER 08/20/22 [History Last Taken Unknown] Allergy/AdvReac Type Severity Reaction Status Date / Time vaccine adjuvant system, AdvReac Other Verified 08/20/22 03:15 AS01B liposomal [From Shingrix (PF)] varicella-zoster virus AdvReac Other Verified 08/20/22 03:15 glycoprotein E, recombinant [From Shingrix (PF)] Family History (Updated 08/20/22 @ 20:[address] Lesley Ahumada DO) Father Cirrhosis of liver CAD (coronary artery disease) Mother CAD (coronary artery disease) Surgical History (Updated 08/20/22 @ 20:[address] Lesley Ahumada DO) History of reverse total replacement of shoulder joint Hx of foot surgery S/p bilateral carpal tunnel release S/P right knee arthroscopy S/P tonsillectomy Status post left partial knee replacement Status post right partial knee replacement Social History Smoking Status: Never smoker alcohol intake: current alcohol intake frequency: holidays/special occasions only details: none substance use type: does not use caffeine: Yes what type of physical activity do you participate in: walking seatbelt use: always do you feel safe at home: Yes additional social history: - Leonid- Self employed in [employer] 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 Constitutional Constitutional: Denies change in weight, chills, fatigue, fever(s) or night sweats Eyes Eyes: Denies blurry vision, change in vision, eye pain or loss of vision ENT HEENT: Denies abnormal hearing, dysphagia, headache(s), hearing loss, nasal congestion or sore throat Cardiovascular Cardiovascular: Denies chest pain, dyspnea on exertion, edema, lightheadedness, orthopnea, palpitations, paroxysmal nocturnal dyspnea or syncope Respiratory/Chest Respiratory/Chest: Denies cough, dyspnea, shortness of breath at rest, shortness of breath with exertion or wheezing Gastrointestinal Gastrointestinal: Reports constipation; Denies abdominal pain, diarrhea, dyspepsia, hematemesis, hematochezia, nausea or vomiting Genitourinary Genitourinary: Denies dysuria, hematuria, nocturia, urinary frequency, urinary hesitancy, urinary incontinence or urinary urgency Musculoskeletal Musculoskeletal: Reports back pain and muscle weakness; Denies joint pain, joint swelling or neck pain Integumentary Integumentary: Reports dry skin; Denies rash or wounds Neurologic Neurologic: Reports numbness, paresthesias, radicular pain and other Details: No upper extremity weakness. No difficulty swallowing and no shortness of breath. ; Denies confusion, disequilibrium, dizziness, headache(s), other visual disturbances, seizures or tremor(s) Psychiatric Psychiatric: Denies homicidal ideation or suicidal ideation Endocrine Endocrinology: Denies change in body appearance, polydipsia or polyuria Hematologic/Lymphatic Hematologic/Lymphatic: Denies easy bleeding, easy bruising or lymphadenopathy Allergic/Immunologic Allergic/Immunologic: Denies rhinitis, eczemia or asthma Vital Signs Vital Signs Vital Signs: 08/19/22 22:23 08/19/22 22:35 08/20/22 01:20 Temperature 99.6 F H Temperature Source Temporal Pulse Rate 96 96 85 Respiratory Rate 20 H 20 H Respiratory Effort Normal Non-Labored Respiratory Depth Normal Respiratory Pattern Normal Blood Pressure 189/97 H 186/88 H Blood Pressure Mean 127 120 Blood Pressure Source Monitor Monitor Blood Pressure Position Sitting Sitting Blood Pressure Location Left Arm Left Arm Pulse Ox 93 93 Oxygen Delivery Method Room Air Room Air 08/20/22 08:23 08/20/22 07:40 Temperature 97.1 F L Temperature Source Oral Pulse Rate 104 H Respiratory Rate 18 Respiratory Effort Respiratory Depth Respiratory Pattern Blood Pressure 140/78 H Blood Pressure Mean 98 Blood Pressure Source Monitor Blood Pressure Position Standing Blood Pressure Location Left Arm Pulse Ox 97 97 Oxygen Delivery Method Room Air Room Air Weight Weight: 198 lb 13.711 oz Body Mass Index (BMI) 31.1 Physical Exam Const alert, oriented x3 and no apparent distress Constitutional Narrative: sitting in the recliner at the bedside. General Appearance: cooperative, well kempt and well developed HEENT normocephalic, head/scalp atraumatic and hearing grossly normal bilaterally HEENT Narrative: Dry mucous membranes. Nose: external nose normal External Ear: external ears normal Mouth: dry mucous membranes, No dysphonia, No muffled voice and No restricted motion Eyes PERRL, EOMs intact bilaterally, conjunctivae normal, no scleral icterus and normal visual coleman by confrontation General Eye: normal appearance of both eyes Neck No nuchal rigidity, supple, No nodes and No no carotid bruits General: trachea midline; Negative for torticollis Chest Chest: symmetrical chest wall rise Resp normal respiratory effort, normal air movement, no use of accessory muscles and clear to auscultation bilaterally Resp Narrative: Not tachypneic and no labored breathing. Effort and Inspection: able to speak in complete sentences Cardio regular rhythm, S1 normal heart sound and S2 normal heart sound Cardio Narrative: She is tachycardic with a heart rate of 104. No ectopy. There is a systolic ejection murmur at the second right intercostal space, 1-2/6. 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 Denies any hx of RF as a child. Does not know which valve is associated with the MM but, she has had a TTE in the past. GI normal to inspection, nondistended, normoactive bowel sounds, soft to palpation and non-tender GI Narrative: No guarding with palpation, no masses, no abdominal bruits, no organomegaly. Back/Spine Back/Spine Narrative: Low back pain and pain in the posterior thighs. Extremity no calf tenderness and no pedal edema Skin General Skin Exam: no breakdown Rashes: no rashes Neuro oriented x3 and CN's II-XII intact bilaterally Neuro Narrative: Can not dorsiflex either foot but has some plantar flexion- not normal though. Weakness in both LE's. Good strength in the UE's. Has tingling and numbness in both LE's - worse in the feet. Could not elicit patellar or Achilles reflexes. Thought process is normal and speech is normal. Psych mental status grossly normal, thought process normal, cooperative, speech normal, denies hallucinations, denies homicidal ideation and denies suicidal ideation Appearance: grossly normal Attitude: calm Activity / Motor Behavior: appropriate eye contact; Negative for psychomotor agitation, fidgetting or restless Mood & Affect: anxious Results Lab / Micro Data Result Diagrams: 08/20/22 05:10 08/20/22 05:10 Labs: Laboratory Results - last 24 hr 08/20/22 05:10: WBC 4.2 L, RBC 4.85, Hgb 15.3 H, Hct 45.6, MCV 94.0, MCH 31.5, MCHC 33.6, RDW Std Deviation 49.1 H, RDW Coeff of Yousuf 14.2, Plt Count 251, MPV 9.4, Immature Gran % (Auto) 0.500, Neut % (Auto) 63.1, Lymph % (Auto) 21.2, [place] % (Auto) 14.3 H, Eos % (Auto) 0.2, Baso % (Auto) 0.7, Absolute Neuts (auto) 2.7, Absolute Lymphs (auto) 0.89, Nucleated RBC % 0 08/20/22 05:10: Sodium 129 L, Potassium 3.6, Chloride 94 L, Carbon Dioxide 26.0, Anion Gap 9, BUN 26 H, Creatinine 0.91, Estim Creat Clear Calc 58.34, Est GFR (MDRD) Af Amer 79, Est GFR (MDRD) Non-Af 66, BUN/Creatinine Ratio 28.6 H, Glucose 104, Calcium 10.0, Magnesium 2.3 08/20/22 05:10: Phosphorus 4.0 Assessment & Plan Assessment/Plan (1) Physical debility: (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: (3) Lower extremity weakness: (4) Paresthesias: (5) Dehydration: (6) Hyponatremia: (7) Obstructive sleep apnea: (8) History of reverse total replacement of shoulder joint: (9) Anxiety with depression: (10) Hyperlipidemia: (11) GERD (gastroesophageal reflux disease): (12) Hypertension: (13) Insomnia: (14) Constipation: PLAN: Plan PLAN PT for gait stability OT for ADL's Analgesics as needed Bowel protocol Fall precautions Assess for Anxiety/Depression GI prophylaxis with pantoprazole DVT prophylaxis with Lovenox and RONY hose Follow up with PCP and neurology following DC from IP Rehab AM lab including CMP, CBC, Mag and Phos-personally reviewed Check a hemoglobin A1c and vitamin D level She is already on a SSRI and I do not want to add Remeron to stimulate appetite and help sleep because Remeron has serotonin activity as well and she would be at risk for serotonin syndrome. Will use Marinol 2.5 mg at bedtime for sleep and to stimulate the appetite. Change the tramadol to 50 mg for pain 4-6 and 100 mg for pain 7-10. She is currently taking 300 mg of Neurontin at bedtime and will add 100 mg twice daily to help control the radicular pain in her posterior thighs. Hold the statin for now because she already has muscle weakness. Not sure why [facility] discontinued Provigil? Get records from whoever prescribed the Provigil. she is on fosmax but I am not sure why? She has had 2 bone density studies at [facility] in 2017 and 2021 and they are both normal? This may be what is causing her GERD and she has normal bone density. Continue Protonix for now. Charges/Coding Visit Charges Inpatient E&M: 13672 Init Hosp L3
--- NOTE | 2022-08-20 21:23 | PCM.RU.PYE ---
Admission Information Primary Diagnosis:: Physical debility secondary to Guillain [place] syndrome. Status Changes from Prescreening?: No changes Identified Actual Problem List:: Pain, ALteration in Cmfrt, Bowel, Constipation, Alteration in Sleep, Alteration in Nutrition, Mobility Impaired, Self Care Deficit, Know.Dfct/Disease Process, Fluid Change-Dehydration and Alteration-Leisure Activ. Potential Problem List:: DVT, Bleeding, Infection, UTI, Aspiration, Falls, Skin Integrity and Depression Risk of Complications DVT: LMWH and RONY Hose Bleeding: Monitor Lab Values, Nursing to Teach Precautions for anti-coagulation therapy., Wound, if applicable, to be assessed every shift. and Stroke patients assessed for lethargy or change in status. Infection: Clinical Staff to Monitor for S/S of infection: and S/S of infection include fever, redness, warmth, etc. Urinary Tract Infection: Monitor for frequency, burning, discomfort, or incontinence. and Nursing will obtain urine sample for urinalysis and C&S when ordered. Aspiration: Clinical staff will monitor for coughing, drooling, congestion., Speech will evaluate swallowing and dsyphasia. and Nursing will monitor patient swallowing during meals. Falls: Patient will be evaluated for Fall Precautions and Patient will be placed on Fall Precautions as indicated per protocol. Skin Breakdown: Nursing will assess skin daily using assessment tool. and Nursing will place on Skin Breakdown Precautions as indicated. Pain: Clinical staff will assess patient's pain level per protocol., Medications will be given, if needed, and the pain level reassessed. and Other methods: Massage, distraction, decrease stimulus, etc. used PRN. Plan of Care Patient requires physician specializing in physical medicine and rehab oversight to provide close medical supervision of rehab issues including: Pain Management, Sleep Problems, Bowel and Bladder, Medical and co-morbidity Management, DVT prophylaxis, Rehabilitation Leadership and Coordination of treatment team Patient needs Physical Therapy: For a minimum of 1 hour and At least 5 out of 7 days Patient needs Physical Therapy to improve:: Mobility, Strengthening, Transfers, Stretching, ROM, Endurance, Stairs, Gait and Balance Patient needs Occupational Therapy: For a minimum of 1 hour and At least 5 out of 7 days Patient needs Occupational Therapy to improve ADL's incl.: Eating, Grooming, Bathing, Dressing, Toileting, Toilet transfers, Community Reintegration, Higher functioning activities, Household tasks, Adaptive Equipment, Splinting and Other activities as determined Patient requires 24/7 Rehabilitation Nursing for: Pain Issues, Identifying and preventing risk factors, Monitoring and reporting current medical conditions, Assisting with ambulation, transfer, and all ADL's, Teaching patients about disease process and medications, Family teaching, Providing safe environment, Bowel and Bladder Issues, Skin integrity and Medication Management Patient needs Manager Hotel/ Case Management for: Discharge Planning, Arranging Home Equipment or Services and Family Interventions Patient needs Dietary and Nutrition Services for: Adequate Nutrition, Nutritional Supplements and Nutritional Education Goals Patient will remain: free from falls Patient will perform bed mobility at: MOD I level of assist. Patient will complete transfers from bed to chair at: MOD I level of assist. Patient will ambulate: - (150 feet with least restrictive device on various surfaces at standby assist) Patient will complete upper body dressing at: MOD I level of assist. Patient will complete lower body dressing at: Standby Assist. (With adaptive equipment) Patient will complete toileting at: Standby Assist. Patient will perform bathing at: Standby Assist. Patient will complete grooming at: MOD I level of assist. Patient will achieve: - (4 steps with least restrictive device with 1 handrail at contact-guard assist to gain access to her home and 1 curb step with least restrictive device at standby assist) Patient will have pain level of: of 3 or less Patient's skin will: remain intact Patient will receive: adequate nutrition. Discharge Planning Pt Prognosis for Sig. Practical Improv. w/in Reasonable Time: Good Estimated Length of stay (days): 28 Anticipated D/C Destination: Home (Home health care versus outpatient therapy to be determined closer to discharge date.) Was Preadmission Assessment Accurate?: Yes
[2022-08-20] MEDS: Gabapentin 300 MG Capsule PO (21:49)
[2022-08-20] MEDS: Zolpidem Tartrate 5 MG Tablet PO (21:49)
[2022-08-20] MEDS: Paroxetine 20 MG Tablet PO (21:50)
[2022-08-20] MEDS: Dronabinol 2.5 MG Capsule PO (21:50)
[2022-08-20 22:00] VITALS: BP 146/83; PULSE 90; RESP 18; TEMP 36.7; O2SAT 96
[2022-08-21] MEDS: traMADol 50 MG Tablet PO ×2 (00:48→12:42)
[2022-08-21] MEDS: Gabapentin 100 MG Capsule PO ×2 (05:32→14:41)
[2022-08-21 06:30] VITALS: O2SAT 98
[2022-08-21 06:39] LABS: AST(SGOT) 50 U/L (15-37); Alanine Aminotransfer ALT/SGPT 66 U/L (13-56); Albumin, Serum 3.4 g/dL (3.2-5.0); Alkaline Phosphatase 116 U/L (45-117); Bilirubin, Direct 0.09 mg/dL (0.00-0.30); Globulin 7.3 g/dL (2.2-4.2); Protein, Total 10.7 g/dL (6.4-8.2)
[2022-08-21 07:48] VITALS: BP 177/84; PULSE 98; RESP 18; TEMP 36.9; O2SAT 95
[2022-08-21 09:16] LABS: Hemoglobin A1c 5.3 % (3.8-5.6)
[2022-08-21] MEDS: Lisinopril 40 MG Tablet PO (09:54)
[2022-08-21] MEDS: Pantoprazole Sodium 40 MG Tablet PO (09:54)
[2022-08-21] MEDS: Polyethylene Glycol 3350 17 GM PACKET PO (09:54)
[2022-08-21] MEDS: Calcium (Elemental) 500 MG Tablet 1000 MG PO (09:54)
[2022-08-21] MEDS: Carvedilol 3.125 MG TABLET PO (09:55)
[2022-08-21] MEDS: Senna/Docusate Sodium 1 Tablet 2 TABLET PO (09:55)
[2022-08-21] MEDS: Enoxaparin 40 MG/0.4 ML Syringe SC (09:55)
[2022-08-21] MEDS: Multivitamins,Therapeutic Tablet 1 TABLET PO (09:55)
[2022-08-21 10:06] LABS: Vitamin D,25 Hydroxy 51.6 ng/mL
--- NOTE | 2022-08-21 11:04 | PN_ITS ---
Progress Note Afebrile Blood pressures have been elevated and have ranged from 140/78-189/97. Heart rate has ranged from 90 - 104. Maintaining appropriate oxygen saturation on room air. She ate 75 to 100% of her breakfast today. Nursing tells me she did not sleep well again last night. She has only taken 1 tramadol since admission to rehab. Hemoglobin A1c is 5.3. AST is mildly increased at 50 and the ALT is 66 but the bilirubin and alkaline phosphatase are within normal limits. nolan tells me that she did not sleep well last night. the pain in her legs is better since the Gabapentin was added at night. she continues to c/o tingling, primarily in her feet but, also with mild tingling in the fingertips. She denies shortness of throat, cough, lightheadedness, palpitations, dysuria and calf pain. She is alert and oriented x3. She is sitting in the recliner and does not appear to be in any distress. She admits to me that she is somewhat anxious. Appetite was better this morning and this is likely secondary to Marinol she received at bedtime. She denies nausea/vomiting/abdominal pain. Nursing did not collect a urine sample and so the FENA can not be calculated. Pt urinates and defecates at the same time. Alert and oriented x3 Mucous membranes are very dry Lungs-clear to auscultation with good air exchange Abdomen-soft, nontender, nondistended, no suprapubic pain with palpation. The last 2 post void residuals have been 0 and 33. No peripheral edema, no calf tenderness Thought processes normal, she is anxious. Assessment & Plan Assessment/Plan (1) Physical debility: (2) Guillain-[place] syndrome after administration of vaccine: (3) Dehydration: (4) Hyponatremia: PLAN: Suspect this is related to poor intake. (5) Lower extremity weakness: (6) Insomnia: PLAN: Plan 1. Continue therapy 2. Discontinue Ambien and start Klonopin 1 mg p.o. at 8 PM daily for insomnia suspected to be secondary to anxiety 3. Increase Coreg to 6.25 mg twice daily 4. Continue Marinol because it is helping with poor appetite 5. Straight cath for UA and urine sodium and creatinine 6. Await results of the urine tests to calculate fractional excretion of sodium and determine if hyponatremia is due to dehydration versus SIADH. 7. Adding the 100 mg of Neurontin twice a day in addition to the 300 mg at night has improved the pain in her legs and back. Visit Charges Inpatient E&M: 25859 Subs Hosp L2
[2022-08-21 16:37] LABS: Bacteria 0 SEEN /hpf (None Seen); Mucous, Urine 0 SEEN /hpf (<or=2+); Red Blood Cells-Urine 0 SEEN /hpf (0-5)
[2022-08-21 16:44] LABS: Color, Urine Yellow (Yellow); Glucose, Dipstick Normal (Normal); Ketone-Dipstick Negative (Negative); Leukocyte Esterase-Dipstick Negative /ul (Negative); Nitrite-Dipstick Negative (Negative); Occult Blood-Urine 10 /ul (Negative); Protein-Dipstick 100 mg/dl (Negative); Specific Gravity, Urine 1.025 (1.002-1.030); Urine Bilirubin Dipstick Negative (Negative); Urine Clarity Clear (Clear); Urine Urobilinogen Normal (Normal)
[2022-08-21 17:11] LABS: Squamous Epithelial Cells - UA 0-5 SEEN /hpf (5-10); White Blood Cells 0-5 SEEN /hpf (0-5)
[2022-08-21 17:12] LABS: Hyaline Cast 0-5 SEEN /lpf (0-5)
[2022-08-21 17:15] LABS: Urine Sodium 7 mmol/L (Not Establ.)
[2022-08-21] MEDS: Carvedilol 6.25 MG Tablet PO (17:42)
[2022-08-21] MEDS: clonazePAM 0.5 MG Tablet 1 MG PO (20:22)
[2022-08-21 21:20] VITALS: BP 140/80; PULSE 82; RESP 16; TEMP 36.2; O2SAT 95
[2022-08-21] MEDS: Gabapentin 300 MG Capsule PO (21:21)
[2022-08-21] MEDS: Paroxetine 20 MG Tablet PO (21:21)
[2022-08-21] MEDS: Dronabinol 2.5 MG Capsule PO (22:39)
[2022-08-22] MEDS: traMADol 50 MG Tablet PO ×3 (00:16→12:21)
[2022-08-22] MEDS: Acetaminophen 325 MG Tablet PO ×3 (01:08→17:30)
[2022-08-22] MEDS: Gabapentin 100 MG Capsule PO ×2 (05:00→15:25)
[2022-08-22 08:06] VITALS: O2SAT 94
[2022-08-22] MEDS: Lisinopril 40 MG Tablet PO (08:17)
[2022-08-22] MEDS: Multivitamins,Therapeutic Tablet 1 TABLET PO (08:17)
[2022-08-22] MEDS: Enoxaparin 40 MG/0.4 ML Syringe SC (08:17)
[2022-08-22] MEDS: Pantoprazole Sodium 40 MG Tablet PO (08:17)
[2022-08-22] MEDS: Calcium (Elemental) 500 MG Tablet 1000 MG PO (08:18)
[2022-08-22] MEDS: Carvedilol 6.25 MG Tablet PO ×2 (08:19→17:28)
[2022-08-22 08:24] VITALS: BP 148/81; PULSE 86; RESP 16; TEMP 36.7; O2SAT 95
--- NOTE | 2022-08-22 15:22 | PCM.PROGNOTE ---
Subjective Subjective Afebrile VSS-blood pressures are mildly elevated. Coreg was increased just yesterday. Maintaining appropriate oxygen saturation on RA Oral intake is improved since the Marinol was added to her drug regimen. She was able to take 1330 p.o. yesterday and today is had 840 so far. Denies any problems with constipation today. Discussed with nursing -nursing tells me that the patient did not sleep well last night. The patient tells me that she received her medication at 9 and then fell asleep but woke up around 11:30 and had a hard time going to sleep after that. She felt the medication wore off too soon. Reviewed the PT/OT notes Medication list reviewed. She is complaining of burning and tingling in her feet that keeps her awake at night. She denies headache, chest pain, shortness of breath, nausea/vomiting/abdominal pain, dysuria and lightheadedness. Objective Data Objective Data Vital Signs: Vital Signs Temp Pulse Resp BP Pulse Ox O2 Del Method 98.0 F 86 16 148/81 H 95 Room Air 08/22/22 08:24 08/22/22 08:24 08/22/22 08:24 08/22/22 08:24 08/22/22 08:24 08/22/22 08:24 Oxygen Delivery Method Room Air Weight: 196 lb 6.91 oz Body Mass Index (BMI) 31.1 Intake & Output: Intake and Output for Last 24 Hours 08/20/22 08/21/22 08/22/22 23:59 23:59 23:59 Intake Total 1260 / 1260 1330 / 1330 840 / 840 Output Total 1550 / 1750 820 / 970 450 / 450 Balance -290 / -490 510 / 360 390 / 390 Lab / Micro Data Result Diagrams: 08/20/22 05:10 08/20/22 05:10 Labs: Laboratory Results - last 24 hr 08/21/22 16:25: Ur Random Sodium 7 08/21/22 16:25: Urine Color Yellow, Urine Clarity Clear, Urine pH 6.0, Ur Specific [place] 1.025, Urine Protein 100 H, Urine Glucose (UA) Normal, Urine Ketones Negative, Urine Occult Blood 10 H, Urine Nitrite Negative, Urine Bilirubin Negative, Urine Urobilinogen Normal, Ur Leukocyte Esterase Negative, Urine RBC 0 SEEN, Urine WBC 0-5 SEEN, Ur Squamous Epith Cells 0-5 SEEN, Urine Bacteria 0 SEEN, Hyaline Casts 0-5 SEEN, Urine Mucus 0 SEEN 08/21/22 16:25: Urine Creatinine 123.00 Physical Exam Const alert, oriented x3 and no apparent distress Constitutional Narrative: sitting in the recliner at the bedside. General Appearance: cooperative Resp normal respiratory effort, normal air movement and clear to auscultation bilaterally Resp Narrative: Not tachypneic and no labored breathing. Cardio regular rhythm, S1 normal heart sound and S2 normal heart sound GI normal to inspection, nondistended, normoactive bowel sounds, soft to palpation and non-tender GI Narrative: No guarding with palpation, no masses, no abdominal bruits, no organomegaly. 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 Continue therapy 2. Increase gabapentin to 400 mg at bedtime and 200 mg twice daily. 3. Change the Klonopin to be given at bedtime 4. Give 100 mg of tramadol at bedtime and change the as needed tramadol to every 8 hours. 5. Recheck lab in a few days Charges/Coding Visit Charges Inpatient E&M: 70235 Subs Hosp L2
[2022-08-22] MEDS: Calcium (Elemental) 500 MG Tablet PO (17:27)
[2022-08-22 20:28] VITALS: BP 149/83; PULSE 83; RESP 18; TEMP 36.4; O2SAT 95
[2022-08-22] MEDS: Senna/Docusate Sodium 1 Tablet 2 TABLET PO (21:07)
[2022-08-22] MEDS: traMADol 50 MG Tablet 100 MG PO (21:07)
[2022-08-22] MEDS: Paroxetine 20 MG Tablet PO (21:08)
[2022-08-22] MEDS: Dronabinol 2.5 MG Capsule PO (21:08)
[2022-08-22] MEDS: clonazePAM 0.5 MG Tablet 1 MG PO (21:09)
[2022-08-22] MEDS: Gabapentin 400 MG Capsule PO (21:09)
[2022-08-23] MEDS: traMADol 50 MG Tablet PO ×2 (03:26→11:58)
--- NOTE | 2022-08-23 03:28 | NURSING ---
pt very restless & fidgety this hs and repositioned in recliner. Ultram prn provided for 8/10 pain. Not sleeping this hs.
--- NOTE | 2022-08-23 04:00 | NURSING ---
Pt has been restless since 244. Pt assisted to BSC x2, walked to bathroom with walker and 2 assist. Pt confused. Attempted to reorient pt. Daughter at bedside. Pt tossing the turning in bed stating, Just let me go. I just want to go. Room temp adjusted for comfort. Blankets offered. Pt refused. This RN sat with pt, helping to prevent bruising of her legs and knees on the side of the bed.
[2022-08-23] MEDS: Gabapentin 100 MG Capsule 200 MG PO ×2 (06:15→14:25)
[2022-08-23 07:59] VITALS: BP 160/84; PULSE 90; RESP 16; TEMP 36.2; O2SAT 94
[2022-08-23] MEDS: Multivitamins,Therapeutic Tablet 1 TABLET PO (08:17)
[2022-08-23] MEDS: Calcium (Elemental) 500 MG Tablet PO ×2 (08:17→17:37)
[2022-08-23] MEDS: Lisinopril 40 MG Tablet PO (08:17)
[2022-08-23] MEDS: Pantoprazole Sodium 40 MG Tablet PO (08:17)
[2022-08-23] MEDS: Carvedilol 6.25 MG Tablet PO ×2 (08:18→17:36)
[2022-08-23] MEDS: Enoxaparin 40 MG/0.4 ML Syringe SC (08:18)
[2022-08-23] MEDS: Senna/Docusate Sodium 1 Tablet 2 TABLET PO ×2 (08:18→21:19)
[2022-08-23] MEDS: Acetaminophen 325 MG Tablet PO ×2 (09:21→17:35)
[2022-08-23 19:38] VITALS: BP 152/83; PULSE 85; RESP 18; TEMP 36.8; O2SAT 96
[2022-08-23] MEDS: Gabapentin 400 MG Capsule PO (21:19)
[2022-08-23] MEDS: clonazePAM 0.5 MG Tablet 1 MG PO (21:19)
[2022-08-23] MEDS: traMADol 50 MG Tablet 100 MG PO (21:19)
[2022-08-23] MEDS: Dronabinol 2.5 MG Capsule PO (21:19)
[2022-08-23] MEDS: Paroxetine 20 MG Tablet PO (21:21)
--- NOTE | 2022-08-24 00:50 | NURSING ---
Pt is calling repeatedly for staff assistance with repositioning in recliner, toileting needs, polar care/kpad, and asking if she has had all the meds for the day? Staff attempts to find ways to meet all of pt's needs but pt calls for staff within 15 minutes of last call. Pt encouraged to wear CPAP and try to relax to get some rest. Pt has CPAP on at this time and staff will report when CPAP is found off pt.
[2022-08-24] MEDS: Gabapentin 100 MG Capsule 200 MG PO ×2 (05:10→13:22)
[2022-08-24 07:42] VITALS: BP 122/90; PULSE 102; RESP 18; TEMP 36.9; O2SAT 96
[2022-08-24] MEDS: Senna/Docusate Sodium 1 Tablet 2 TABLET PO (08:58)
[2022-08-24] MEDS: Polyethylene Glycol 3350 17 GM PACKET PO (08:58)
[2022-08-24] MEDS: Carvedilol 6.25 MG Tablet PO ×2 (08:58→16:54)
[2022-08-24] MEDS: Calcium (Elemental) 500 MG Tablet PO ×2 (08:58→16:54)
[2022-08-24] MEDS: Lisinopril 40 MG Tablet PO (08:58)
[2022-08-24] MEDS: Pantoprazole Sodium 40 MG Tablet PO (08:58)
[2022-08-24] MEDS: Enoxaparin 40 MG/0.4 ML Syringe SC (08:58)
[2022-08-24] MEDS: Multivitamins,Therapeutic Tablet 1 TABLET PO (08:58)
--- NOTE | 2022-08-24 12:23 | PN_ITS ---
Subjective Subjective Sophia was seen on team rounds today. Her daughter Chel and Shahzad were present in the room. Afebrile VSS BP's remain elevated. Maintaining appropriate oxygen saturation on RA Oral intake is much improved Discussed with nursing - no problems that need addressed other than insomnia Reviewed the PT/OT notes Medication list reviewed. She continues to c/o not sleeping well. She has not been wearing CPAP. Night/HS meds include Klonopin 1 mg, dronabinol 2.5 mg, gabapentin 400 mg and tramadol 100 mg. She is tired during the day and naps frequently. She tells me that the pain is her legs is improving and it is primarily in the feet now. She denies calf pain, shortness of breath, chest pain, nausea/vomiting/abdominal pain, dysuria, lightheadedness. She tells me that she does not wear the CPAP because she is not sleeping but, she is sleeping......she just wakes up a couple times thru the night. Appetite is much better and so is fluid intake Objective Data Objective Data Vital Signs: Vital Signs Temp Pulse Resp BP Pulse Ox O2 Del Method 98.4 F 102 H 18 122/90 H 96 Room Air 08/24/22 07:42 08/24/22 07:42 08/24/22 07:42 08/24/22 07:42 08/24/22 07:42 08/24/22 07:42 Oxygen Delivery Method Room Air Weight: 196 lb 6.91 oz Body Mass Index (BMI) 31.1 Intake & Output: Intake and Output for Last 24 Hours 08/22/22 08/23/22 08/24/22 23:59 23:59 23:59 Intake Total 1680 / 1930 1450 / 1450 Output Total 1300 / 1400 1800 / 1800 250 / 250 Balance 380 / 530 -350 / -350 -250 / -250 Lab / Micro Data Result Diagrams: 08/20/22 05:10 08/20/22 05:10 Physical Exam Const Constitutional Narrative: She looks tired and her eyelids are heavy General Appearance: cooperative Resp normal respiratory effort, normal air movement and clear to auscultation bilaterally Cardio regular rate, regular rhythm and no gallops GI normal to inspection, nondistended, normoactive bowel sounds, soft to palpation and non-tender Extremity no calf tenderness General Extremity: Negative for edema Skin General Skin Exam: no breakdown Rashes: no rashes Assessment & Plan Assessment/Plan (1) Physical debility: (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 Continue therapy 2. Add Procardia 10 mg every 4 hours as needed systolic greater than 160 or diastolic greater than 90 3. Change the gabapentin to 300 mg at 7 PM and 300 mg at bedtime 4. Restart Provigil at 200 mg daily to treat narcolepsy 5. Patient agrees to wear CPAP tonight even if she is only lying in bed and not sleeping. 6. Nursing will check on her frequently throughout the night to make sure she is wearing the CPAP. 7. Nursing and family is to keep the patient awake during the day for better s leep architecture. Charges/Coding Visit Charges Inpatient E&M: 69068 Subs Hosp L2
--- NOTE | 2022-08-24 17:59 | CASEMGMT ---
Social Work - IDT met with patient, spouse and daughter for Team meeting today, 2.01.08. Discussed patient?s progress in PT/OT/SN. Patient is progressing in therapy, though having some impulsivity. engaged and asking questions of the team regarding illness. Patient independent prior to this illness and working full-time without assistive devices. , with whom patient lives, also works [employer]. Goal is home with and PLOF. Educated that [employer] is 2.8.23, where will then know if stay is continued or looking to discharge. Educated SW available to assist with referrals aftercare (C, Outpatient therapy, DME) if needed. Patient nor family express any questions. [employer] 2..23. Re-Team 2.. SW to continue to follow. -MARGARITO Talbert, POULTRY SLAUGHTERER
[2022-08-24] MEDS: Gabapentin 300 MG Capsule PO ×2 (19:51→21:50)
[2022-08-24 20:13] VITALS: BP 149/77; PULSE 94; RESP 15; TEMP 36.8; O2SAT 97
[2022-08-24] MEDS: Paroxetine 20 MG Tablet PO (21:47)
[2022-08-24] MEDS: traMADol 50 MG Tablet 100 MG PO (21:48)
[2022-08-24] MEDS: Dronabinol 2.5 MG Capsule PO (21:49)
[2022-08-24] MEDS: clonazePAM 0.5 MG Tablet 1 MG PO (21:49)
[2022-08-25] MEDS: Acetaminophen 325 MG Tablet PO (03:38)
[2022-08-25] MEDS: traMADol 50 MG Tablet PO (03:39)
[2022-08-25] MEDS: NIFEdipine 10 MG Capsule PO (03:55)
--- NOTE | 2022-08-25 04:00 | NURSING ---
Pt vital signs @ 0355 BP 182/93 L sitting, P 81, R 16, T 97.0. PRN procardia given.
[2022-08-25 04:02] VITALS: BP 182/93; PULSE 81; RESP 16; TEMP 36.1; O2SAT 98
--- NOTE | 2022-08-25 05:07 | NURSING ---
Pt applied cpap @ 2156, worn all evening except when up to use BSC. Pt slept in bed all night.
[2022-08-25] MEDS: Gabapentin 100 MG Capsule 200 MG PO ×2 (06:14→13:29)
[2022-08-25] MEDS: Modafinil 200 MG Tablet PO (06:14)
[2022-08-25] MEDS: Pantoprazole Sodium 40 MG Tablet PO (08:28)
[2022-08-25] MEDS: Multivitamins,Therapeutic Tablet 1 TABLET PO (08:28)
[2022-08-25] MEDS: Carvedilol 12.5 MG Tablet PO ×2 (08:28→16:45)
[2022-08-25] MEDS: Lisinopril 40 MG Tablet PO (08:28)
[2022-08-25] MEDS: Enoxaparin 40 MG/0.4 ML Syringe SC (08:29)
[2022-08-25] MEDS: Calcium (Elemental) 500 MG Tablet PO ×2 (08:29→16:45)
[2022-08-25 08:49] VITALS: BP 136/72; PULSE 95; RESP 17; TEMP 36.6; O2SAT 96
--- NOTE | 2022-08-25 10:22 | PN_ITS ---
Subjective Subjective Afebrile VSS Maintaining appropriate oxygen saturation on RA Oral intake is good She wore CPAP all night except when she got up to go to the restroom. She slept well per nursing. Discussed with nursing - no problems that need addressed Reviewed the PT/OT notes Medication list reviewed. Sophia denies lightheadedness, vertigo, CP, SOB at rest, SOB with exertion, cough, nausea, vomiting, abd pain, diarrhea, constipation, dysuria, calf pain and ankle swelling. The tingling and burning are better in the distal legs but, she is starting to have some cramping in the thighs. It can last 1 hour but, usually it is minutes. Has had some urine retention and has had to be straight cath'd. No incontinence. Objective Data Objective Data Vital Signs: Vital Signs Temp Pulse Resp BP Pulse Ox O2 Del Method 97.8 F 95 17 136/72 H 96 Room Air 08/25/22 08:49 08/25/22 08:49 08/25/22 08:49 08/25/22 08:49 08/25/22 08:49 08/25/22 08:49 Oxygen Delivery Method Room Air Weight: 196 lb 6.91 oz Body Mass Index (BMI) 31.1 Intake & Output: Intake and Output for Last 24 Hours 08/23/22 08/24/22 08/25/22 23:59 23:59 23:59 Intake Total 1450 / 1450 220 / 220 Output Total 1800 / 1800 625 / 625 750 / 750 Balance -350 / -350 -405 / -405 -750 / -750 Lab / Micro Data Result Diagrams: 08/20/22 05:10 08/20/22 05:10 Physical Exam Const alert, oriented x3 and no apparent distress Constitutional Narrative: She looks tired and her eyelids are heavy General Appearance: cooperative HEENT normocephalic, head/scalp atraumatic and hearing grossly normal bilaterally Eyes PERRL, EOMs intact bilaterally, conjunctivae normal, no scleral icterus and normal visual coleman by confrontation General Eye: normal appearance of both eyes Neck No nuchal rigidity, supple, No nodes and No no carotid bruits General: trachea midline; Negative for torticollis Chest Chest: symmetrical chest wall rise Resp normal respiratory effort, normal air movement and clear to auscultation bilaterally Resp Narrative: Not tachypneic and no labored breathing. Effort and Inspection: able to speak in complete sentences Cardio regular rate, regular rhythm and no gallops Cardio Narrative: She is tachycardic with a heart rate of 104. No ectopy. There is a systolic ej ection murmur at the second right intercostal space, 1-2/6. 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 Denies any hx of RF as a child. Does not know which valve is associated with the MM but, she has had a TTE in the past. GI normal to inspection, nondistended, normoactive bowel sounds, soft to palpation and non-tender GI Narrative: No guarding with palpation, no masses, no abdominal bruits, no organomegaly. Back/Spine Back/Spine Narrative: Low back pain and pain in the posterior thighs. Extremity no calf tenderness General Extremity: Negative for edema Skin General Skin Exam: no breakdown Rashes: no rashes Neuro oriented x3 and CN's II-XII intact bilaterally Neuro Narrative: She has some dorsiflexion in the feet but, it is minimal......she did not have any dorsiflexion at admission. 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 Continue therapy 2. Continue current drug regimen. 3. Now that she is sleeping better at night I hope the blood pressure will be coming down. No change to the antihypertensive regimen today. 4. I did discuss possible development of foot drop with her physical therapist but the therapist feels that she is wearing her shoes enough that this will not happen and they will monitor daily for any signs of foot drop. Charges/Coding Visit Charges Inpatient E&M: 14934 Subs Hosp L2
[2022-08-25] MEDS: Gabapentin 300 MG Capsule PO ×2 (20:27→23:10)
[2022-08-25 22:00] VITALS: BP 138/75; PULSE 95; RESP 18; TEMP 36.6; O2SAT 96
[2022-08-25] MEDS: clonazePAM 0.5 MG Tablet 1 MG PO (22:37)
[2022-08-25] MEDS: traMADol 50 MG Tablet 100 MG PO (22:37)
[2022-08-25] MEDS: Senna/Docusate Sodium 1 Tablet 2 TABLET PO (22:38)
[2022-08-25] MEDS: Paroxetine 20 MG Tablet PO (22:39)
[2022-08-25] MEDS: Dronabinol 2.5 MG Capsule PO (23:09)
--- NOTE | 2022-08-26 03:44 | NURSING ---
Str Cathed for UA specimen per Dr S order. 475ml str cath amount and BS for 20mL remains. Pt tolerated well.
[2022-08-26 03:53] LABS: Mucous, Urine 0 SEEN /hpf (<or=2+); Red Blood Cells-Urine 0 SEEN /hpf (0-5); Squamous Epithelial Cells - UA 0 SEEN /hpf (5-10)
[2022-08-26 03:56] LABS: Color, Urine Yellow (Yellow); Glucose, Dipstick Normal (Normal); Ketone-Dipstick Negative (Negative); Leukocyte Esterase-Dipstick 500 /ul (Negative); Nitrite-Dipstick Positive (Negative); Occult Blood-Urine 150 /ul (Negative); Protein-Dipstick 30 mg/dl (Negative); Urine Bilirubin Dipstick Negative (Negative); Urine Clarity Sl. Cloudy (Clear); Urine Urobilinogen Normal (Normal)
[2022-08-26 04:16] LABS: Bacteria 4+ /hpf (None Seen); White Blood Cells 25-50 SEEN /hpf (0-5)
[2022-08-26] MEDS: Gabapentin 100 MG Capsule 200 MG PO ×2 (07:02→14:20)
[2022-08-26] MEDS: Modafinil 200 MG Tablet PO (07:02)
[2022-08-26] MEDS: Pantoprazole Sodium 40 MG Tablet PO (09:13)
[2022-08-26] MEDS: Lisinopril 40 MG Tablet PO (09:13)
[2022-08-26] MEDS: Carvedilol 12.5 MG Tablet PO ×2 (09:13→17:18)
[2022-08-26] MEDS: Calcium (Elemental) 500 MG Tablet PO ×2 (09:13→17:18)
[2022-08-26] MEDS: Enoxaparin 40 MG/0.4 ML Syringe SC (09:13)
[2022-08-26] MEDS: Multivitamins,Therapeutic Tablet 1 TABLET PO (09:13)
[2022-08-26 09:18] VITALS: BP 131/72; PULSE 100; RESP 18; TEMP 36.6; O2SAT 96
[2022-08-26] MEDS: clonazePAM 0.5 MG Tablet 1 MG PO (21:20)
[2022-08-26] MEDS: Cefadroxil 500 MG CAPSULE 1000 MG PO (21:20)
[2022-08-26] MEDS: Gabapentin 300 MG Capsule PO ×2 (21:20→23:32)
[2022-08-26] MEDS: Paroxetine 20 MG Tablet PO (21:20)
[2022-08-26] MEDS: traMADol 50 MG Tablet 100 MG PO (21:21)
[2022-08-26] MEDS: Senna/Docusate Sodium 1 Tablet 2 TABLET PO (21:22)
[2022-08-26 21:30] VITALS: BP 142/83; PULSE 87; RESP 16; TEMP 36.6; O2SAT 97
[2022-08-27] MEDS: traMADol 50 MG Tablet PO (01:57)
[2022-08-27] MEDS: Acetaminophen 325 MG Tablet PO (01:57)
[2022-08-27] MEDS: Modafinil 200 MG Tablet PO (06:06)
[2022-08-27] MEDS: Gabapentin 100 MG Capsule 200 MG PO ×2 (06:06→13:13)
--- NOTE | 2022-08-27 07:31 | NURSING ---
per FELICITAS RodriguezN, pt wore CPAP for 8 hours and 10 mins.
[2022-08-27 07:38] VITALS: BP 145/86; PULSE 88; RESP 17; TEMP 36.4; O2SAT 96
[2022-08-27] MEDS: Multivitamins,Therapeutic Tablet 1 TABLET PO (07:57)
[2022-08-27] MEDS: Carvedilol 12.5 MG Tablet PO ×2 (07:57→16:32)
[2022-08-27] MEDS: Calcium (Elemental) 500 MG Tablet PO ×2 (07:57→16:32)
[2022-08-27] MEDS: Enoxaparin 40 MG/0.4 ML Syringe SC (09:28)
[2022-08-27] MEDS: Cefadroxil 500 MG CAPSULE 1000 MG PO ×2 (09:28→21:26)
[2022-08-27] MEDS: Pantoprazole Sodium 40 MG Tablet PO (09:29)
[2022-08-27] MEDS: Senna/Docusate Sodium 1 Tablet 2 TABLET PO (09:29)
[2022-08-27] MEDS: Lisinopril 40 MG Tablet PO (09:29)
--- NOTE | 2022-08-27 19:20 | PN_ITS ---
Progress Note Day #2 cefadroxil for UTI Afebrile VSS-blood pressure is coming down. She has only needed 1 dose of Procardia and that was at 3:55 AM on 08/25/2022. Maintaining appropriate oxygen saturation on RA Oral intake is good Discussed with nursing - no problems that need addressed Reviewed the PT/OT notes - she ambulated at the wall rail today 5 ft and then 4 ft and she would not attempt a third time. She tooke shorter stride with the 4 ft and had better balance. She c/o pain in the legs with walking. She completed multiple sliding board transfers with min/mod assist with decreased assist required when transitioning downhill. She was able to place her own side board following cues x2 with good placement noted overall. She needed minimal assist with bathing today. She also required only min assist with upper body dressing but max assist with lower body dressing. She also requires max assist with toileting and moderate assist with toilet transfer. She is total assist with tub/shower transfer. Medication list reviewed. Urine culture is growing over 100,000 colonies of gram-negative lactose full stack software developer. Final identification is still pending. Sophia remains afebrile. Has not had to be straight cathed in the past 2 days. Sophia denies lightheadedness, vertigo, CP, SOB at rest, SOB with exertion, cough, nausea, vomiting, abd pain, diarrhea, constipation, dysuria, calf pain and ankle swelling. She is sleeping well now and is alert during the day. Physical Exam Const alert, oriented x3 and no apparent distress Constitutional Narrative: Making good eye contact, appropriate General Appearance: cooperative HEENT moist oral mucous membranes Neck no lymphadenopathy and supple Resp normal respiratory effort, normal air movement and clear to auscultation bilaterally Resp Narrative: Not tachypneic and no labored breathing. Effort and Inspection: able to speak in complete sentences Cardio regular rate, regular rhythm and no gallops GI normal to inspection, nondistended, normoactive bowel sounds, soft to palpation and non-tender GI Narrative: No guarding with palpation, no masses, no abdominal bruits, no organomegaly. Back/Spine no CVA tenderness Extremity no calf tenderness Extremity Narrative: Negative Casimiro's and Tom's signs General Extremity: Negative for edema Skin Skin Narrative: No rashes, no skin breakdown. General Skin Exam: no breakdown Rashes: no rashes Neuro oriented x3 and CN's II-XII intact bilaterally Neuro Narrative: She has some dorsiflexion in the feet but, it is minimal......she did not have any dorsiflexion at admission. Her legs are Yogesh wrapped into dorsiflexion so that she may ambulate. Psych cooperative Psych Narrative: Appropriate, making good eye contact. Able to stay on topic and focus. No flight of ideas. Does not appear anxious or depressed. Conversant and relating well to staff. 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 Continue therapy 2. Continue cefadroxil and await the results of the final urine culture and sensitivity 3. No changes to the antihypertensive regimen at this time but if tomorrow her systolics are still above 140 and the diastolics above 80 will adjust the antihypertensive regimen. 4. Recheck a H&H and a BMP in the AM. Visit Charges Inpatient E&M: 97908 Subs Hosp L2
[2022-08-27 20:50] LABS: Hematocrit 39.4 % (37-47); Hemoglobin 13.4 g/dL (12.0-15.0)
[2022-08-27] MEDS: traMADol 50 MG Tablet 100 MG PO (21:25)
[2022-08-27] MEDS: Gabapentin 300 MG Capsule PO ×2 (21:26→23:24)
[2022-08-27] MEDS: clonazePAM 0.5 MG Tablet 1 MG PO (21:26)
[2022-08-27] MEDS: tiZANidine HCl 2 MG Tablet 4 MG PO (21:26)
[2022-08-27] MEDS: Paroxetine 20 MG Tablet PO (21:29)
[2022-08-27 22:00] VITALS: BP 124/67; PULSE 84; RESP 16; TEMP 36.9; O2SAT 96
[2022-08-28] MEDS: Modafinil 200 MG Tablet PO (05:52)
[2022-08-28] MEDS: Gabapentin 100 MG Capsule 200 MG PO ×2 (05:52→13:22)
--- NOTE | 2022-08-28 06:08 | NURSING ---
pt used c-pap a total of 5hours and 51 minutes
[2022-08-28 06:25] LABS: Anion Gap 7 (5-15); BUN 16 mg/dL (7-18); BUN/Creat Ratio 19.7 RATIO (10-20); Calcium,Total 9.6 mg/dL (8.5-10.1); Chloride 99 mmol/L (98-107); Creatinine, Serum 0.81 mg/dL (0.55-1.02); EST Glomerular Filtration Rate 75 mL/min (>60); Est Glom Filt Rate - Afr Amer 90 mL/min (>60); Estimated Creatinine Clearance 65.54 ml/min; Glucose 101 mg/dL (74-106); Potassium 4.2 mmol/L (3.5-5.1); Sodium Level 134 mmol/L (136-145)
[2022-08-28 07:21] VITALS: BP 141/79; PULSE 87; RESP 18; TEMP 36.7; O2SAT 97
[2022-08-28] MEDS: Pantoprazole Sodium 40 MG Tablet PO (08:13)
[2022-08-28] MEDS: Lisinopril 40 MG Tablet PO (08:14)
[2022-08-28] MEDS: Enoxaparin 40 MG/0.4 ML Syringe SC (08:14)
[2022-08-28] MEDS: Multivitamins,Therapeutic Tablet 1 TABLET PO (08:14)
[2022-08-28] MEDS: Carvedilol 12.5 MG Tablet PO ×2 (08:14→16:51)
[2022-08-28] MEDS: Calcium (Elemental) 500 MG Tablet PO ×2 (08:14→16:51)
[2022-08-28] MEDS: Cefadroxil 500 MG CAPSULE 1000 MG PO ×2 (08:40→21:04)
[2022-08-28] MEDS: tiZANidine HCl 2 MG Tablet PO (11:05)
[2022-08-28] MEDS: Paroxetine 20 MG Tablet PO (21:04)
[2022-08-28] MEDS: Gabapentin 300 MG Capsule PO ×2 (21:04→22:47)
[2022-08-28] MEDS: clonazePAM 0.5 MG Tablet 1 MG PO (21:04)
[2022-08-28] MEDS: Senna/Docusate Sodium 1 Tablet 2 TABLET PO (21:04)
[2022-08-28 21:55] VITALS: BP 130/72; PULSE 84; RESP 16; TEMP 36.4; O2SAT 99
[2022-08-28 22:00] VITALS: O2SAT 99
[2022-08-28] MEDS: traMADol 50 MG Tablet 100 MG PO (22:47)
[2022-08-29] MEDS: tiZANidine HCl 2 MG Tablet PO (02:02)
[2022-08-29] MEDS: traMADol 50 MG Tablet PO (02:03)
[2022-08-29] MEDS: Modafinil 200 MG Tablet PO (05:39)
[2022-08-29] MEDS: Gabapentin 100 MG Capsule 200 MG PO ×2 (05:39→14:07)
--- NOTE | 2022-08-29 06:40 | NURSING ---
Pt wore c-pap for a total of 7hrs, only taken off to go to BSC.
[2022-08-29 07:40] VITALS: BP 149/77; PULSE 82; RESP 16; TEMP 36.8; O2SAT 98
[2022-08-29] MEDS: Senna/Docusate Sodium 1 Tablet 2 TABLET PO ×2 (08:06→21:44)
[2022-08-29] MEDS: Carvedilol 12.5 MG Tablet PO ×2 (08:06→17:28)
[2022-08-29] MEDS: Calcium (Elemental) 500 MG Tablet PO ×2 (08:06→17:28)
[2022-08-29] MEDS: Enoxaparin 40 MG/0.4 ML Syringe SC (08:07)
[2022-08-29] MEDS: Multivitamins,Therapeutic Tablet 1 TABLET PO (08:07)
[2022-08-29] MEDS: Cefadroxil 500 MG CAPSULE 1000 MG PO ×2 (08:07→21:41)
[2022-08-29] MEDS: Pantoprazole Sodium 40 MG Tablet PO (08:07)
[2022-08-29] MEDS: Lisinopril 40 MG Tablet PO (08:07)
[2022-08-29] MEDS: Gabapentin 300 MG Capsule PO ×2 (20:00→23:25)
[2022-08-29 21:40] VITALS: BP 153/79; PULSE 95; RESP 18; TEMP 37.1; O2SAT 97
[2022-08-29] MEDS: Paroxetine 20 MG Tablet PO (21:41)
[2022-08-29] MEDS: traMADol 50 MG Tablet 100 MG PO (21:41)
[2022-08-29] MEDS: clonazePAM 0.5 MG Tablet 1 MG PO (21:41)
[2022-08-30] MEDS: traMADol 50 MG Tablet PO (01:30)
[2022-08-30] MEDS: tiZANidine HCl 2 MG Tablet PO ×2 (01:31→21:05)
[2022-08-30] MEDS: Modafinil 200 MG Tablet PO (05:19)
[2022-08-30] MEDS: Gabapentin 100 MG Capsule 200 MG PO ×2 (05:20→14:43)
[2022-08-30 07:05] VITALS: BP 146/73; PULSE 86; RESP 16; TEMP 36.6; O2SAT 95
--- NOTE | 2022-08-30 07:48 | NURSING ---
pt wore her c-pap for 6 hours and 30minutes
[2022-08-30] MEDS: Cefadroxil 500 MG CAPSULE 1000 MG PO ×2 (09:28→21:06)
[2022-08-30] MEDS: Pantoprazole Sodium 40 MG Tablet PO (09:29)
[2022-08-30] MEDS: Calcium (Elemental) 500 MG Tablet PO ×2 (09:29→17:12)
[2022-08-30] MEDS: Carvedilol 12.5 MG Tablet PO ×2 (09:29→17:11)
[2022-08-30] MEDS: Multivitamins,Therapeutic Tablet 1 TABLET PO (09:29)
[2022-08-30] MEDS: Enoxaparin 40 MG/0.4 ML Syringe SC (09:29)
[2022-08-30] MEDS: Lisinopril 40 MG Tablet PO (09:29)
[2022-08-30 19:45] VITALS: BP 123/66; PULSE 85; RESP 14; TEMP 37; O2SAT 98
[2022-08-30] MEDS: Gabapentin 300 MG Capsule PO ×2 (19:51→23:17)
[2022-08-30] MEDS: Senna/Docusate Sodium 1 Tablet 2 TABLET PO (21:05)
[2022-08-30] MEDS: clonazePAM 0.5 MG Tablet 1 MG PO (21:05)
[2022-08-30] MEDS: traMADol 50 MG Tablet 100 MG PO (21:05)
[2022-08-30] MEDS: Paroxetine 20 MG Tablet PO (21:06)
[2022-08-31] MEDS: Gabapentin 100 MG Capsule 200 MG PO ×2 (05:47→15:04)
[2022-08-31] MEDS: Modafinil 200 MG Tablet PO (05:47)
[2022-08-31] MEDS: tiZANidine HCl 2 MG Tablet PO (08:25)
[2022-08-31] MEDS: Carvedilol 12.5 MG Tablet PO ×2 (08:26→17:19)
[2022-08-31] MEDS: Calcium (Elemental) 500 MG Tablet PO ×2 (08:26→17:19)
[2022-08-31] MEDS: Lisinopril 40 MG Tablet PO (08:26)
[2022-08-31] MEDS: Pantoprazole Sodium 40 MG Tablet PO (08:26)
[2022-08-31] MEDS: Multivitamins,Therapeutic Tablet 1 TABLET PO (08:28)
[2022-08-31 10:00] VITALS: BP 136/82; PULSE 91; RESP 18; TEMP 36.7; O2SAT 94
[2022-08-31] MEDS: Enoxaparin 40 MG/0.4 ML Syringe SC (10:13)
[2022-08-31] MEDS: Cefadroxil 500 MG CAPSULE 1000 MG PO ×2 (10:15→21:25)
[2022-08-31] MEDS: traMADol 50 MG Tablet PO (10:30)
--- NOTE | 2022-08-31 13:09 | CASEMGMT ---
Social Work IDT met with patient and for Team meeting. Discussed patient's progress in PT/OT/SN. Educated to [facility] insurance with [employer] 09/02 and continued stay is not guaranteed with each review. IDT is recommending continued stay. Pt's goal is to return home with . works full-time. Will ReTeam weekly. SW to continue to follow. Kari De Anda, PATIENT OBSERVER HYDROLOGIC ENGINEER
--- NOTE | 2022-08-31 16:04 | PCM.PROGNOTE ---
Subjective Subjective Sophia was seen on team rounds today. Her Shahzad was present in the room. Day #6 cefadroxil for cystitis secondary to E. coli. Since she was having urine retention at admission will tx for 10 days with Jp. Afebrile VSS Maintaining appropriate oxygen saturation on RA Oral intake is good Discussed with nursing - Was having muscle spasms last night and had to get up in the recliner. Did not sleep well. did not try the Tizanidine. Reviewed the PT/OT notes Medication list reviewed. does not often need to take Tramadol. She is getting frustrated that she is not able to walk yet........she is making good progress but, we are not even 1 week out from the eveline. She was on Paxil 20 mg daily at admission to rehab. She denies cephalgia, sore throat, cough, chest pain, shortness of breath, nausea/vomiting/abdominal pain, dysuria, calf pain and lightheadedness. Objective Data Objective Data Vital Signs: Vital Signs Temp Pulse Resp BP Pulse Ox O2 Del Method 98.0 F 91 18 136/82 H 94 Room Air 08/31/22 10:00 08/31/22 10:00 08/31/22 10:00 08/31/22 10:00 08/31/22 10:00 08/30/22 19:45 Oxygen Delivery Method Room Air Weight: 197 lb 8.547 oz Body Mass Index (BMI) 31.1 Intake & Output: Intake and Output for Last 24 Hours 08/29/22 08/30/22 08/31/22 23:59 23:59 23:59 Intake Total 1820 / 1820 1460 / 1460 200 / 200 Output Total 1600 / 1600 1550 / 1550 300 / 300 Balance 220 / 220 -90 / -90 -100 / -100 Lab / Micro Data Result Diagrams: 08/27/22 20:05 08/28/22 05:40 Micro: Microbiology 08/26/22 03:43 Urine, Catheterized Urine Culture - Final Escherichia coli Physical Exam Const alert, oriented x3 and no apparent distress Constitutional Narrative: Making good eye contact, appropriate General Appearance: cooperative Chest Chest: symmetrical chest wall rise Resp normal respiratory effort, normal air movement, no use of accessory muscles and clear to auscultation bilaterally Resp Narrative: Not tachypneic and no labored breathing. Effort and Inspection: able to speak in complete sentences Cardio regular rate, regular rhythm and no gallops GI normal to inspection, nondistended, normoactive bowel sounds, soft to palpation and non-tender GI Narrative: No guarding with palpation, no masses, no abdominal bruits, no organomegaly. Extremity no calf tenderness and no pedal edema Skin Skin Narrative: No rashes, no skin breakdown. Neuro oriented x3 and CN's II-XII intact bilaterally Psych mental status grossly normal, thought process normal, cooperative and speech normal Psych Narrative: Appropriate, making good eye contact. Able to stay on topic and focus. No flight of ideas. Does not appear anxious or depressed. Conversant and relating well to staff. 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 Continue therapy - she is making progress.......we are not even 1 week post eveline and she is ambulating using the saji lift with the platform removed for 11' and 5' today. Not as fast as she would like but, reminded her that she did not walk for over 2 weeks and it is going to take time to get her strength back She seems frustrated at this point and not so much depressed. 2. Add tizanidine to the nightly drug regimen to prevent muscle spasms. Charges/Coding Visit Charges Inpatient E&M: 03549 Subs Hosp L2
[2022-08-31] MEDS: Senna/Docusate Sodium 1 Tablet 2 TABLET PO (21:25)
[2022-08-31] MEDS: traMADol 50 MG Tablet 100 MG PO (21:25)
[2022-08-31] MEDS: clonazePAM 0.5 MG Tablet 1 MG PO (21:25)
[2022-08-31] MEDS: tiZANidine HCl 2 MG Tablet 4 MG PO (21:26)
[2022-08-31] MEDS: Paroxetine 20 MG Tablet PO (21:26)
[2022-08-31] MEDS: Gabapentin 300 MG Capsule PO ×2 (21:26→23:16)
[2022-08-31 22:00] VITALS: BP 132/80; PULSE 69; RESP 17; TEMP 36.7; O2SAT 98
--- NOTE | 2022-09-01 03:47 | NURSING ---
Addendum entered by Sarah Dockery 09/01/22 03:49: Ambrosio MORENO. Original Note: Reviewed and agree with [employer] documentation and assessment charting.
[2022-09-01] MEDS: Modafinil 200 MG Tablet PO (05:04)
[2022-09-01] MEDS: Gabapentin 100 MG Capsule 200 MG PO ×2 (05:05→13:56)
[2022-09-01 08:18] VITALS: BP 157/73; PULSE 94; RESP 16; TEMP 36.5; O2SAT 95
[2022-09-01] MEDS: Carvedilol 12.5 MG Tablet PO (08:47)
[2022-09-01] MEDS: Calcium (Elemental) 500 MG Tablet PO ×2 (08:47→16:44)
[2022-09-01] MEDS: Multivitamins,Therapeutic Tablet 1 TABLET PO (08:47)
[2022-09-01] MEDS: Enoxaparin 40 MG/0.4 ML Syringe SC (10:49)
[2022-09-01] MEDS: Cefadroxil 500 MG CAPSULE 1000 MG PO ×2 (10:49→21:26)
[2022-09-01] MEDS: Pantoprazole Sodium 40 MG Tablet PO (10:50)
[2022-09-01] MEDS: Senna/Docusate Sodium 1 Tablet 2 TABLET PO ×2 (10:50→21:26)
[2022-09-01] MEDS: Lisinopril 40 MG Tablet PO (11:02)
--- NOTE | 2022-09-01 11:50 | PCM.PN.BLA ---
Progress Note Afebrile VSS Maintaining appropriate oxygen saturation on RA Oral intake is good Discussed with nursing - no problems that need addressed Reviewed the PT/OT/ST notes Medication list reviewed. Sophia tells me today that she slept very well last night and felt rested this morning. She denies SOB, CP, palpitations, N/V/abd pain, calf pain, dysuria and lightheadedness. Physical Exam Const alert and oriented x3 Constitutional Narrative: Looks rested. 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 Coli......may be related to urine retention she had at admission. (8) Hypertension: PLAN: Plan 1. Continue therapy 2. Increase Coreg to 15.625 mg BID to better control the BP and the HR. 3. Check a CMP in the AM 4. Continue to monitor the BP's closely 5. Continue tizanidine 4 mg at bedtime. Visit Charges Inpatient E&M: 73994 Subs Hosp L2
--- NOTE | 2022-09-01 12:52 | CASEMGMT ---
Social Work SW followed up with pt on completing advanced directives. Pt does not have two of her children's addresses yet. Pt to obtain and notify this worker. SW to continue to follow. JOSEPH GarciaW
[2022-09-01] MEDS: Carvedilol 6.25 MG Tablet 15.625 MG PO (16:43)
[2022-09-01 20:30] VITALS: BP 140/63; PULSE 96; RESP 16; TEMP 37.1; O2SAT 98
[2022-09-01 21:25] VITALS: PULSE 96; RESP 16; O2SAT 98
[2022-09-01] MEDS: traMADol 50 MG Tablet 100 MG PO (21:25)
[2022-09-01] MEDS: tiZANidine HCl 2 MG Tablet 4 MG PO (21:25)
[2022-09-01] MEDS: Gabapentin 300 MG Capsule PO ×2 (21:25→23:24)
[2022-09-01] MEDS: clonazePAM 0.5 MG Tablet 1 MG PO (21:26)
[2022-09-01] MEDS: Paroxetine 20 MG Tablet PO (21:26)
[2022-09-02] MEDS: traMADol 50 MG Tablet PO (03:39)
--- NOTE | 2022-09-02 03:50 | NURSING ---
Reviewed and agree with Ambrosio MORENO, documentation and assessment charting.
[2022-09-02] MEDS: Acetaminophen 325 MG Tablet PO (04:59)
[2022-09-02] MEDS: Gabapentin 100 MG Capsule 200 MG PO ×2 (04:59→13:29)
[2022-09-02] MEDS: Modafinil 200 MG Tablet PO (04:59)
[2022-09-02] MEDS: tiZANidine HCl 2 MG Tablet PO (05:01)
[2022-09-02 07:46] LABS: ALB/GLOB Ratio 0.5 RATIO (0.9-2.4); AST(SGOT) 19 U/L (15-37); Alanine Aminotransfer ALT/SGPT 33 U/L (13-56); Albumin, Serum 2.7 g/dL (3.2-5.0); Alkaline Phosphatase 102 U/L (45-117); Anion Gap 7 (5-15); BUN 13 mg/dL (7-18); BUN/Creat Ratio 17.3 RATIO (10-20); Calcium,Total 9.3 mg/dL (8.5-10.1); Chloride 100 mmol/L (98-107); Creatinine, Serum 0.75 mg/dL (0.55-1.02); EST Glomerular Filtration Rate 82 mL/min (>60); Est Glom Filt Rate - Afr Amer 99 mL/min (>60); Estimated Creatinine Clearance 53.09 ml/min; Globulin 5.3 g/dL (2.2-4.2); Glucose 178 mg/dL (74-106); Potassium 3.5 mmol/L (3.5-5.1); Sodium Level 134 mmol/L (136-145)
[2022-09-02] MEDS: Carvedilol 6.25 MG Tablet 15.625 MG PO ×2 (08:43→17:25)
[2022-09-02] MEDS: Calcium (Elemental) 500 MG Tablet PO ×2 (08:46→17:25)
[2022-09-02] MEDS: Cefadroxil 500 MG CAPSULE 1000 MG PO ×2 (08:46→21:32)
[2022-09-02] MEDS: Multivitamins,Therapeutic Tablet 1 TABLET PO (08:46)
[2022-09-02] MEDS: Lisinopril 40 MG Tablet PO (08:47)
[2022-09-02] MEDS: Senna/Docusate Sodium 1 Tablet 2 TABLET PO ×2 (08:47→21:32)
[2022-09-02] MEDS: Pantoprazole Sodium 40 MG Tablet PO (08:47)
[2022-09-02] MEDS: Enoxaparin 40 MG/0.4 ML Syringe SC (08:48)
[2022-09-02 08:58] VITALS: BP 118/64; PULSE 100; RESP 18; TEMP 36.3; O2SAT 95
[2022-09-02 19:39] VITALS: BP 142/64; PULSE 102; RESP 16; TEMP 36.6; O2SAT 98
[2022-09-02] MEDS: Gabapentin 300 MG Capsule PO ×2 (19:49→23:12)
[2022-09-02] MEDS: traMADol 50 MG Tablet 100 MG PO (21:31)
[2022-09-02] MEDS: clonazePAM 0.5 MG Tablet 1 MG PO (21:31)
[2022-09-02] MEDS: Paroxetine 20 MG Tablet PO (21:32)
[2022-09-02] MEDS: tiZANidine HCl 2 MG Tablet 4 MG PO (21:33)
--- NOTE | 2022-09-03 05:00 | NURSING ---
Pt wore her c-pap for a total of 6 hours through the night.
[2022-09-03] MEDS: Gabapentin 100 MG Capsule 200 MG PO ×2 (05:03→13:43)
[2022-09-03] MEDS: Modafinil 200 MG Tablet PO (05:04)
[2022-09-03 07:33] VITALS: BP 130/70; PULSE 86; RESP 16; TEMP 36.1; O2SAT 95
[2022-09-03] MEDS: Cefadroxil 500 MG CAPSULE 1000 MG PO ×2 (08:35→21:18)
[2022-09-03] MEDS: Enoxaparin 40 MG/0.4 ML Syringe SC (08:35)
[2022-09-03] MEDS: Pantoprazole Sodium 40 MG Tablet PO (08:35)
[2022-09-03] MEDS: Lisinopril 40 MG Tablet PO (08:35)
[2022-09-03] MEDS: Calcium (Elemental) 500 MG Tablet PO ×2 (08:35→17:19)
[2022-09-03] MEDS: Multivitamins,Therapeutic Tablet 1 TABLET PO (08:35)
[2022-09-03] MEDS: Carvedilol 6.25 MG Tablet 15.625 MG PO ×2 (08:35→17:19)
[2022-09-03 19:19] VITALS: BP 138/68; PULSE 86; RESP 15; TEMP 36.8; O2SAT 97
[2022-09-03] MEDS: Gabapentin 300 MG Capsule PO ×3 (21:12→23:00)
[2022-09-03] MEDS: clonazePAM 0.5 MG Tablet 1 MG PO (21:17)
[2022-09-03] MEDS: tiZANidine HCl 2 MG Tablet 4 MG PO (21:17)
[2022-09-03] MEDS: traMADol 50 MG Tablet 100 MG PO (21:18)
[2022-09-03] MEDS: Paroxetine 20 MG Tablet PO (21:18)
[2022-09-03 22:00] VITALS: PULSE 81; RESP 17; O2SAT 97
[2022-09-04] MEDS: Gabapentin 100 MG Capsule 200 MG PO ×2 (06:49→13:25)
[2022-09-04] MEDS: Modafinil 200 MG Tablet PO (06:49)
[2022-09-04 07:38] VITALS: BP 143/79; PULSE 85; RESP 16; TEMP 36.2; O2SAT 100
[2022-09-04] MEDS: Carvedilol 6.25 MG Tablet 15.625 MG PO ×2 (08:19→17:18)
[2022-09-04] MEDS: Cefadroxil 500 MG CAPSULE 1000 MG PO ×2 (08:22→22:23)
[2022-09-04] MEDS: Calcium (Elemental) 500 MG Tablet PO ×2 (08:22→17:18)
[2022-09-04] MEDS: Pantoprazole Sodium 40 MG Tablet PO (08:22)
[2022-09-04] MEDS: Lisinopril 40 MG Tablet PO (08:22)
[2022-09-04] MEDS: Multivitamins,Therapeutic Tablet 1 TABLET PO (08:22)
[2022-09-04] MEDS: Enoxaparin 40 MG/0.4 ML Syringe SC (08:23)
[2022-09-04] MEDS: traMADol 50 MG Tablet PO (13:25)
[2022-09-04] MEDS: tiZANidine HCl 2 MG Tablet 4 MG PO (19:43)
--- NOTE | 2022-09-04 19:51 | EX.DISCHREH ---
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: Status: Acute Code(s): T88.1XXA - Other complications following immunization, not elsewhere classified, initial encounter; G61.0 - Guillain-[place] syndrome (3) Dehydration: Status: Acute Code(s): E86.0 - Dehydration (4) Hyponatremia: Status: Acute Code(s): E87.1 - Hypo-osmolality and hyponatremia (5) Lower extremity weakness: Status: Acute Code(s): R29.898 - Other symptoms and signs involving the musculoskeletal system (6) Insomnia: Status: Acute Code(s): G47.00 - Insomnia, unspecified (7) Cystitis: Status: Acute Code(s): N30.90 - Cystitis, unspecified without hematuria (8) Hypertension: Status: Chronic Code(s): I10 - Essential (primary) hypertension Medications at Discharge Home Medications shilwnixtbm-hxc-migukreoy-hrb 149-hyalur 500 mg-500 mg-66.7 mg tablet (Bgydacjusqo-Utayqmpvvrm-YSP (with antiox)) 1 tab PO DAILY supplement 10/25/17 hydrochlorothiazide 25 mg tablet 25 mg PO QAM htn 10/25/17 lisinopril 10 mg tablet 40 mg PO QDAY htn 10/25/17 calcium 600 mg capsule 1,200 mg PO DAILY supplement 08/19/22 docusate sodium 100 mg capsule 100 mg PO BID stool softener 08/19/22 gabapentin 300 mg capsule 300 mg PO QHS nerve pain 08/19/22 pantoprazole 40 mg tablet,delayed release 40 mg PO DAILY stomach acid 08/19/22 sennosides 8.6 mg tablet (senna) 8.6 mg PO BID stool softeners 08/19/22 tramadol 50 mg tablet 50 mg PO Q6H PRN pain 1-10 08/19/22 Multi-Vitamin 1 tablet DAILY SUPPLEMENT 08/20/22 carvedilol 3.125 mg tablet 3.125 mg PO BID HTN 08/20/22 paroxetine HCl 20 mg tablet (Paxil) 20 mg PO DAILY ANTI DEPRESSANT 08/20/22 polyethylene glycol 3350 17 gram oral powder packet (Miralax) 17 g PO DAILY STOOL SOFTENER 08/20/22 Hospital Course Operations None Procedures None Summary of Care Provided Minutes Spent on Discharge: 35 Hospital Course: 67 year old female with below past medical history hospitalized with Guillain [place] Syndrome, admitted to 08/19/2022 for 3 hours daily rehabilitation, strengthening, prior to discharge home . 08/21/2022 Rx Klonopin 1mg at 8PM for insomnia 2/2 anxiety. Increase Coreg to 6.25mg twice daily for blood pressure control. Continue Marinol for poor appetite. Gabapentin 100mg twice daily, 300mg at bedtime helpful for neuropathic pain of legs. 08/22/2022 Increase gabapentin to 200mg twice daily, 400mg at bedtime. Given Klonopin 1mg at bedtime for sleep. Tramadol 100mg at bedtime for pain, sleep. 08/24/2022 Adjust Gabapentin for neuropathic pain. Restart Provigil 200mg daily for narcolepsy. CPAP for sleep apnea, patient not always compliant. 08/25/2022 Sleeping better. 08/27/2022 Cefadroxil for urinary tract infection, urine culture pending. 08/31/2022 Add Tizanidine at night for muscle spasms. 09/01/2022 Increase Coreg to 15.625mg twice daily for better blood pressure, heart rate control. Discharge home with 09/06/2022, Home Health Care PT/OT/SN. Physical Exam Const alert General Appearance: cooperative HEENT normocephalic Eyes PERRL and EOMs intact bilaterally Neck supple, no JVD and no carotid bruits Resp normal respiratory effort, normal air movement and clear to auscultation bilaterally Cardio regular rate and regular rhythm GI normal to inspection, nondistended, normoactive bowel sounds, non-tender and non-distended Extremity normal capillary refill General Extremity: Negative for edema Skin no rashes or lesions noted General Skin Exam: no breakdown Psych affect normal Appearance: appropriate Weight / BMI Weight Weight: 87.9 kg Body Mass Index (BMI) 31.1 ABG / Lab / Microbiology Data Result Diagrams: 08/27/22 20:05 09/02/22 05:54 Microbiology: Microbiology 08/26/22 03:43 Urine, Catheterized Urine Culture - Final Escherichia coli Indicators for Scoring Admitted with or Primary Diagnosis of CVA/Stroke: No Hx of CVA/Stroke: No Modified Cocke Score MRS Score at time of Evaluation: 0-No symptoms at all D/C Instructions Discharge Diet: No restrictions Discharge Activity: Return to Normal Activity, May Shower and Use Walker May resume sexual activity in: No Restrictions Weight Bearing Status: Weight bearing as tolerated Call your doctor if you observe: Fever of 101 or Higher, Inability to urinate, Inability to have a bowel movement, Shortness of breath, Dizziness, Fainting spells, Swelling in the ankles, Chest pain and Uncontrolled pain Additional Instructions: Discharge home with 09/06/2022, Home Health Care PT/OT/SN. Meaningful Use Info Meaningful Use Diagnoses (Choose all that apply): None applicable Discharge Plan Admission Admit Date/Time: 08/19/22 22:00 Primary Reason for Your Visit: Debility. Attending Provider: Lesley Ahumada Primary Care Provider: Danielle Liu Instructions Additional Instructions / Restrictions: Discharge home with 09/06/2022, Home Health Care PT/OT/SN. Discharge Orders/Prescriptions Prescriptions: No Action lisinopril 10 mg tablet 40 mg PO QDAY hydrochlorothiazide 25 mg tablet 25 mg PO QAM edmflkpqein-qgg-yvcmjypci-hrb 149-hyalur 500 mg-500 mg-66.7 mg tablet 500-500-66.7 mg tablet 1 tab PO DAILY tramadol 50 mg Tablet 50 mg PO Q6H PRN (Reason: pain 1-10) docusate sodium 100 mg Capsule 100 mg PO BID gabapentin 300 mg Capsule 300 mg PO QHS calcium 600 mg Capsule 1,200 mg PO DAILY sennosides [senna] 8.6 mg Tablet 8.6 mg PO BID pantoprazole 40 mg Tablet,Delayed Release (Dr/Ec) 40 mg PO DAILY polyethylene glycol 3350 [Miralax] 17 gram Powder In Packet 17 g PO DAILY carvedilol 3.125 mg Tablet 3.125 mg PO BID Rx Instructions: must administer with a meal/food paroxetine HCl [Paxil] 20 mg Tablet 20 mg PO DAILY Multi-Vitamin 1 tablet DAILY Referrals / Follow Up: [facility] ([facility]) [Other] - 10/12/22 1:30 pm King Grant [Other] - 09/28/22 3:30 pm Danielle Liu, PA-C [Primary Care Provider] -
[2022-09-04] MEDS: clonazePAM 0.5 MG Tablet 1 MG PO (22:21)
[2022-09-04 22:22] VITALS: BP 125/74; PULSE 81; RESP 17; TEMP 36.4; O2SAT 97
[2022-09-04] MEDS: traMADol 50 MG Tablet 100 MG PO (22:22)
[2022-09-04] MEDS: Gabapentin 300 MG Capsule PO (22:22)
[2022-09-04] MEDS: Paroxetine 20 MG Tablet PO (22:23)
[2022-09-04] MEDS: Senna/Docusate Sodium 1 Tablet 2 TABLET PO (22:23)
[2022-09-04] MEDS: Acetaminophen 325 MG Tablet PO (23:58)
[2022-09-04] MEDS: tiZANidine HCl 2 MG Tablet PO (23:59)
[2022-09-05] MEDS: Gabapentin 100 MG Capsule 200 MG PO ×2 (05:21→14:01)
[2022-09-05] MEDS: Modafinil 200 MG Tablet PO (05:43)
[2022-09-05 08:25] VITALS: BP 150/75; PULSE 84; RESP 18; TEMP 36.3; O2SAT 94
[2022-09-05] MEDS: Carvedilol 6.25 MG Tablet 15.625 MG PO ×2 (09:07→18:00)
[2022-09-05] MEDS: Multivitamins,Therapeutic Tablet 1 TABLET PO (09:08)
[2022-09-05] MEDS: Calcium (Elemental) 500 MG Tablet PO ×2 (09:08→18:01)
[2022-09-05] MEDS: Cefadroxil 500 MG CAPSULE 1000 MG PO (09:09)
[2022-09-05] MEDS: Enoxaparin 40 MG/0.4 ML Syringe SC (09:09)
[2022-09-05] MEDS: Lisinopril 40 MG Tablet PO (09:10)
[2022-09-05] MEDS: Pantoprazole Sodium 40 MG Tablet PO (09:10)
[2022-09-05] MEDS: Senna/Docusate Sodium 1 Tablet 2 TABLET PO ×2 (09:13→22:12)
[2022-09-05] MEDS: tiZANidine HCl 2 MG Tablet PO (11:03)
[2022-09-05] MEDS: traMADol 50 MG Tablet PO (11:04)
--- NOTE | 2022-09-05 11:40 | NURSING ---
Per PT during physical therapy- Pt had to be lowered to the floor. X3 assist and saji lift to get Pt back into chair. No injury noted but Pt c/o sore right leg d/t position Pt in, vitals stable, notified. Ice and JENNA wrap ordered. Pt refused JENNA wrap and denies any further needs at this time.
[2022-09-05 11:45] VITALS: BP 131/78; PULSE 92; RESP 18; TEMP 36.6; O2SAT 94
[2022-09-05] MEDS: Gabapentin 300 MG Capsule PO ×2 (20:05→23:59)
[2022-09-05 20:17] VITALS: BP 149/69; PULSE 94; RESP 18; TEMP 36.1; O2SAT 96
[2022-09-05] MEDS: tiZANidine HCl 2 MG Tablet 4 MG PO (20:55)
[2022-09-05] MEDS: clonazePAM 0.5 MG Tablet 1 MG PO (22:12)
[2022-09-05] MEDS: Paroxetine 20 MG Tablet PO (22:12)
[2022-09-05] MEDS: traMADol 50 MG Tablet 100 MG PO (22:12)
[2022-09-06] MEDS: tiZANidine HCl 2 MG Tablet PO ×2 (03:29→18:30)
[2022-09-06] MEDS: traMADol 50 MG Tablet PO (06:24)
[2022-09-06] MEDS: Modafinil 200 MG Tablet PO (06:25)
[2022-09-06] MEDS: Gabapentin 100 MG Capsule 200 MG PO ×2 (06:25→14:14)
--- NOTE | 2022-09-06 06:40 | NURSING ---
Pt wore CPAP 5 hours, taking off for use of BSC.
[2022-09-06 07:27] VITALS: BP 142/68; PULSE 77; RESP 15; TEMP 36.4; O2SAT 97
[2022-09-06] MEDS: Enoxaparin 40 MG/0.4 ML Syringe SC (08:16)
[2022-09-06] MEDS: Multivitamins,Therapeutic Tablet 1 TABLET PO (08:16)
[2022-09-06] MEDS: Carvedilol 6.25 MG Tablet 15.625 MG PO ×2 (08:16→17:52)
[2022-09-06] MEDS: Calcium (Elemental) 500 MG Tablet PO ×2 (08:16→17:51)
[2022-09-06] MEDS: Senna/Docusate Sodium 1 Tablet 2 TABLET PO (08:17)
[2022-09-06] MEDS: Lisinopril 40 MG Tablet PO (08:17)
[2022-09-06] MEDS: Pantoprazole Sodium 40 MG Tablet PO (08:17)
[2022-09-06 19:43] VITALS: BP 140/62; PULSE 85; RESP 18; TEMP 37.2; O2SAT 97
[2022-09-06] MEDS: Gabapentin 300 MG Capsule PO ×2 (20:06→23:48)
[2022-09-06] MEDS: traMADol 50 MG Tablet 100 MG PO (22:38)
[2022-09-06] MEDS: tiZANidine HCl 2 MG Tablet 4 MG PO (22:39)
[2022-09-06] MEDS: clonazePAM 0.5 MG Tablet 1 MG PO (22:40)
[2022-09-06] MEDS: Paroxetine 20 MG Tablet PO (22:41)
[2022-09-07] MEDS: traMADol 50 MG Tablet PO (02:38)
[2022-09-07] MEDS: Modafinil 200 MG Tablet PO (05:44)
[2022-09-07] MEDS: Gabapentin 100 MG Capsule 200 MG PO ×2 (05:44→14:03)
--- NOTE | 2022-09-07 06:47 | NURSING ---
Pt wore CPAP 5.5 hours this shift.
[2022-09-07] MEDS: Carvedilol 6.25 MG Tablet 15.625 MG PO ×2 (07:48→17:59)
[2022-09-07] MEDS: Calcium (Elemental) 500 MG Tablet PO ×2 (07:48→17:59)
[2022-09-07] MEDS: Lisinopril 40 MG Tablet PO (07:48)
[2022-09-07] MEDS: Enoxaparin 40 MG/0.4 ML Syringe SC (07:48)
[2022-09-07] MEDS: Pantoprazole Sodium 40 MG Tablet PO (07:48)
[2022-09-07] MEDS: Multivitamins,Therapeutic Tablet 1 TABLET PO (07:49)
[2022-09-07 07:58] VITALS: BP 129/75; PULSE 85; RESP 18; TEMP 36.6; O2SAT 96
[2022-09-07] MEDS: Acetaminophen 325 MG Tablet PO (11:49)
--- NOTE | 2022-09-07 11:59 | PCM.PROGNOTE ---
Subjective Subjective I&O was seen on team rounds today. Her Shahzad was present in the room. Afebrile VSS -systolic blood pressure is often greater than 130 but the diastolics are always within goal. Maintaining appropriate oxygen saturation on RA Oral intake is good Discussed with nursing - She was lowered to the ground over the weekend and onto her knees. The R knee twisted and was painful but, with elevation, ICE and an JENNA wrap the pain has resolved. One of the therapists was trying to get her to stand and her legs gave out and he could not hold her up so he lowered her to the ground. Reviewed the PT/OT notes She was able to walk 8' and then 6' using the Muna lift today. She is able to use the slide board now. UE strength is good. She is requiring only minimal assistance with bathing, primarily for the lower extremities. She is supervision/set up for upper body dressing but, total assistance with lower body dressing. She is also still total assist with toileting and toilet transfer. She was able to use the slide board transferring from the shower chair to the wheelchair. Medication list reviewed. Sophia is complaining that she is awakening at about 3;30 AM and can not get back to sleep until she gets into the recliner. She is also c/o cramping in her legs that is happening every day. She has not complained about burning pain the legs today but, she still has numbness in her feet and hands. We discussed the elevation in the BP while she is awake and the possibility that she is anxious.......Shahzad tells me that she has always been anxious. She has been on Paxil for quite a while. Has never taken anything else for anxiety. Sophia denies chest pain, shortness of breath, dysuria, nausea/vomiting/abdominal pain, lightheadedness and calf pain. Objective Data Objective Data Vital Signs: Vital Signs Temp Pulse Resp BP Pulse Ox O2 Del Method O2 Flow Rate 97.9 F 85 18 129/75 H 96 Nasal Cannula 1 09/07/22 07:58 09/07/22 07:58 09/07/22 07:58 09/07/22 07:58 09/07/22 07:58 09/07/22 07:58 09/07/22 07:58 Oxygen Flow Rate (L/min) 1 Oxygen Delivery Method Nasal Cannula Weight: 193 lb 12.581 oz Body Mass Index (BMI) 31.1 Intake & Output: Intake and Output for Last 24 Hours 09/05/22 09/06/22 09/07/22 23:59 23:59 23:59 Intake Total 1600 / 1600 1550 / 1550 660 / 660 Output Total 1100 / 1100 Balance 500 / 500 1550 / 1550 660 / 660 Lab / Micro Data Result Diagrams: 08/27/22 20:05 09/02/22 05:54 Micro: Microbiology 08/26/22 03:43 Urine, Catheterized Urine Culture - Final Escherichia coli Physical Exam Const alert, oriented x3 and no apparent distress Constitutional Narrative: Seems a bit anxious. 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 Continue therapy 2. BMP and CBC in the a.m. 3. DC the clonazepam and try Ambien tonight. Continue gabapentin, 4 mg of Zanaflex and 100 mg of tramadol at bedtime. At home pt occasionally uses CBD gummies to help her sleep........Consider restarting the Dronabinol if the Ambien does not help 4. I would like to get her to the point where she can stand and pivot prior to discharging her from rehab..........then she would be able to go home rather than an SNF. Their BR is small and likely will not accommodate a WC but, we could get a BSC. She would need some help in the day when Shahzad is at work to use the toilet but, Shahzad says he can arrange this. He also tells me that he will find a way to get her to OP therapy 2 X's a week. Charges/Coding Visit Charges Inpatient E&M: 28561 Subs Hosp L2
--- NOTE | 2022-09-07 12:40 | CASEMGMT ---
Social Work IDT met with patient and for Team meeting. Discussed patient's progress in PT/OT/SN. Educated to [employer] insurance with NRD 09/09 and continued stay is not guaranteed with each review. Therapy using Sar[employer], SPT, slideboard for tasks with pt. Pt does have steps to enter. Pt's goal is for pt to return home with , however, if pt is not more independent at time of DC, pt may need short-term SNF stay. IDT recommending continued stay and pt is making progress each week. Pt and prefer not to have pt go to a SNF. SW asked if pt received children's addresses to complete advanced directives. Pt does not have them yet, and will notify this worker to complete. Will ReTeam next week. SW to continue to follow. Kari De Anda, [employer]
[2022-09-07 19:27] VITALS: BP 112/67; PULSE 86; RESP 18; TEMP 36.7; O2SAT 97
[2022-09-07] MEDS: Zolpidem Tartrate 5 MG Tablet PO (21:10)
[2022-09-07] MEDS: Gabapentin 300 MG Capsule PO ×2 (21:10→22:10)
[2022-09-07] MEDS: tiZANidine HCl 2 MG Tablet 4 MG PO (21:11)
[2022-09-07] MEDS: Paroxetine 20 MG Tablet PO (21:11)
[2022-09-07] MEDS: traMADol 50 MG Tablet 100 MG PO (21:14)
[2022-09-07] MEDS: Senna/Docusate Sodium 1 Tablet 2 TABLET PO (21:14)
[2022-09-07] MEDS: tiZANidine HCl 2 MG Tablet PO (21:18)
[2022-09-07 22:00] VITALS: PULSE 86; RESP 17
--- NOTE | 2022-09-08 00:39 | NURSING ---
Pt awakened and asked to move to recliner claiming she was uncomfortable and thought being in the recliner would be better. Staff offered to try repositioning in bed with KPAD and pillows. CPAP reapplied and operating. Will continue to monitor.
--- NOTE | 2022-09-08 03:34 | NURSING ---
Pt awakened for toileting and repositioning needs. Pt repositioned to recliner. Pt states that she feels that she slept about the same, no worse, no better with med changes. Pt denies further needs.
[2022-09-08] MEDS: Modafinil 200 MG Tablet PO (05:04)
[2022-09-08] MEDS: Gabapentin 100 MG Capsule 200 MG PO ×2 (05:04→13:40)
[2022-09-08] MEDS: traMADol 50 MG Tablet PO (05:04)
[2022-09-08 05:45] LABS: Hematocrit 38.9 % (37-47); Hemoglobin 12.9 g/dL (12.0-15.0); Mean Corp Hgb Conc 33.2 g/dL (32-36); Mean Corpuscular Hgb 31.8 pg (27.0-32.0); Mean Corpuscular Volume 95.8 fL (81-99); Mean Platelet Vol. 9.2 fl (6.2-12.0); Platelet Count 236 K/mm3 (150-450); RBC Distribution Width CV 13.6 % (11.6-14.6); RBC Distribution Width SD 48.1 fl (35.1-43.9); Red Blood Count 4.06 M/mm3 (4.2-5.4); White Blood Count 3.4 K/mm3 (4.4-11.0)
[2022-09-08 06:42] LABS: Anion Gap 5 (5-15); BUN 13 mg/dL (7-18); BUN/Creat Ratio 18.4 RATIO (10-20); Calcium,Total 9.6 mg/dL (8.5-10.1); Chloride 100 mmol/L (98-107); Creatinine, Serum 0.71 mg/dL (0.55-1.02); EST Glomerular Filtration Rate 88 mL/min (>60); Est Glom Filt Rate - Afr Amer 106 mL/min (>60); Estimated Creatinine Clearance 53.09 ml/min; Glucose 126 mg/dL (74-106); Potassium 3.9 mmol/L (3.5-5.1); Sodium Level 136 mmol/L (136-145)
[2022-09-08 07:21] VITALS: BP 143/67; PULSE 80; RESP 16; TEMP 36.5; O2SAT 98
[2022-09-08] MEDS: Enoxaparin 40 MG/0.4 ML Syringe SC (08:19)
[2022-09-08] MEDS: Calcium (Elemental) 500 MG Tablet PO ×2 (08:21→16:30)
[2022-09-08] MEDS: Lisinopril 40 MG Tablet PO (08:21)
[2022-09-08] MEDS: Carvedilol 6.25 MG Tablet 15.625 MG PO ×2 (08:21→16:30)
[2022-09-08] MEDS: Pantoprazole Sodium 40 MG Tablet PO (08:21)
[2022-09-08] MEDS: Multivitamins,Therapeutic Tablet 1 TABLET PO (08:21)
[2022-09-08] MEDS: tiZANidine HCl 2 MG Tablet PO ×2 (08:21→21:16)
--- NOTE | 2022-09-08 10:18 | PN_ITS ---
Subjective Subjective AF VSS - systolic mildly elevated. Maintaining appropriate oxygen sat on RA Good fluid intake eating 75-100% of her meals Reports that she did not sleep well last night. Staff reported she slept so-so. Klonopin was discontinued yesterday and he got 10 mg of Ambien at HS. She complained of back pain after a few hours in the bed and was moved to the recliner. All lab was personally reviewed. WBC is mildly decreased at 3.4. HGB and PLT are WNL. Creat is stable and the sodium, potassium and creat are all good. Staff reports that the fall on Wednesday occurred because Sophia said she did not need the sliding board to transfer when the PT wanted to use the board. She has done this on several other occasions with other staff and they tell her no, she needs the side board. Yesterday she needed to go to the toilet and PT wanted to get her on the toilet using the slide board but, she refused and wanted to use the Muna Lift. She states the pain in her back and legs was good last night and she does not know why she awakens at 2:30-3:30. When she is at home she usually goes to bed around 11:30. We will try giving her the night time meds at 11 and see if that works better for her. Sophia denies dysuria, lightheadedness, chest pain, shortness of breath, palpitations, abdominal pain and calf pain. Objective Data Objective Data Vital Signs: Vital Signs Temp Pulse Resp BP Pulse Ox O2 Del Method O2 Flow Rate 97.7 F L 80 16 143/67 H 98 Room Air 1 09/08/22 07:21 09/08/22 07:21 09/08/22 07:21 09/08/22 07:21 09/08/22 07:21 09/08/22 07:21 09/07/22 07:58 Oxygen Flow Rate (L/min) 1 Oxygen Delivery Method Room Air Weight: 193 lb 12.581 oz Body Mass Index (BMI) 31.1 Intake & Output: Intake and Output for Last 24 Hours 09/06/22 09/07/22 09/08/22 23:59 23:59 23:59 Intake Total 1550 / 1550 2220 / 2220 840 / 840 Output Total 250 / 250 750 / 750 Balance 1550 / 1550 1969 Lab / Micro Data Result Diagrams: 09/08/22 05:33 09/08/22 05:33 Labs: Laboratory Results - last 24 hr 09/08/22 05:33: WBC 3.4 L, RBC 4.06 L, Hgb 12.9, Hct 38.9, MCV 95.8, MCH 31.8, MCHC 33.2, RDW Std Deviation 48.1 H, RDW Coeff of Yousuf 13.6, Plt Count 236, MPV 9.2 09/08/22 05:33: Sodium 136, Potassium 3.9, Chloride 100, Carbon Dioxide 31.0, Anion Gap 5, BUN 13, Creatinine 0.71, Estim Creat Clear Calc 53.09, Est GFR (MDRD) Af Amer 106, Est GFR (MDRD) Non-Af 88, BUN/Creatinine Ratio 18.4, Glucose 126 H, Calcium 9.6 Micro: Microbiology 08/26/22 03:43 Urine, Catheterized Urine Culture - Final Escherichia coli Physical Exam Const alert, oriented x3 and no apparent distress Constitutional Narrative: Seems a bit anxious. General Appearance: cooperative Resp normal respiratory effort, normal air movement and clear to auscultation bilaterally Effort and Inspection: able to speak in complete sentences; Negative for tachypneic Cardio regular rate, regular rhythm and no gallops Cardio Narrative: Resting HR is high in the 90's GI normal to inspection, nondistended, normoactive bowel sounds, soft to palpation and non-tender GI Narrative: No guarding with palpation, no masses, no abdominal bruits, no organomegaly. Extremity no calf tenderness and no pedal edema Skin Skin Narrative: No rashes, no skin breakdown. 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 PLAN: Plan 1. Continue therapy 2. Changed to nighttime medications to be given at 11 PM and hopefully she will be able to sleep through the night because she will be on a schedule that she normally keeps at home. 3. We discussed using the slide board as much as possible so that she will be good at this if she is able to return home at discharge. I discouraged use of the Muna lift to go to the toilet and to do things other than ambulate. 4. Needs to follow up with her sleep specialist post DC to discuss insomnia, narcolepsy and LISA No changes to the drug regimen at this time except for times/ Charges/Coding Visit Charges Inpatient E&M: 97847 Subs Hosp L2
[2022-09-08 19:16] VITALS: BP 120/63; PULSE 89; RESP 17; TEMP 37; O2SAT 98
[2022-09-08] MEDS: Gabapentin 300 MG Capsule PO ×2 (19:40→22:10)
[2022-09-08] MEDS: tiZANidine HCl 2 MG Tablet 4 MG PO (21:14)
[2022-09-08] MEDS: Paroxetine 20 MG Tablet PO (21:15)
[2022-09-08] MEDS: Senna/Docusate Sodium 1 Tablet 2 TABLET PO (21:15)
[2022-09-08] MEDS: Zolpidem Tartrate 5 MG Tablet PO (21:15)
[2022-09-08] MEDS: traMADol 50 MG Tablet 100 MG PO (21:15)
[2022-09-08 22:00] VITALS: PULSE 89; RESP 16
[2022-09-09] MEDS: Modafinil 200 MG Tablet PO (06:05)
[2022-09-09] MEDS: Gabapentin 100 MG Capsule 200 MG PO ×2 (06:06→13:30)
[2022-09-09 07:39] VITALS: BP 121/66; PULSE 91; RESP 16; TEMP 37.2; O2SAT 94
[2022-09-09] MEDS: Enoxaparin 40 MG/0.4 ML Syringe SC (09:43)
[2022-09-09] MEDS: Calcium (Elemental) 500 MG Tablet PO ×2 (09:43→17:17)
[2022-09-09] MEDS: Carvedilol 6.25 MG Tablet 15.625 MG PO ×2 (09:44→17:17)
[2022-09-09] MEDS: tiZANidine HCl 2 MG Tablet PO ×2 (09:44→21:46)
[2022-09-09] MEDS: Multivitamins,Therapeutic Tablet 1 TABLET PO (09:44)
[2022-09-09] MEDS: Lisinopril 40 MG Tablet PO (09:44)
[2022-09-09] MEDS: Pantoprazole Sodium 40 MG Tablet PO (09:44)
[2022-09-09 19:36] VITALS: BP 120/66; PULSE 72; RESP 16; TEMP 36.4; O2SAT 97
[2022-09-09] MEDS: Menthol/Lanolin/Calamine/Znox 113 GM Tube 1 APPLIC TOPICAL (19:48)
[2022-09-09] MEDS: tiZANidine HCl 2 MG Tablet 4 MG PO (19:48)
[2022-09-09] MEDS: Gabapentin 300 MG Capsule PO ×2 (19:48→22:59)
[2022-09-09 20:00] VITALS: O2SAT 97
[2022-09-09] MEDS: Senna/Docusate Sodium 1 Tablet 2 TABLET PO (21:46)
[2022-09-09] MEDS: Paroxetine 20 MG Tablet PO (21:46)
[2022-09-09] MEDS: Zolpidem Tartrate 5 MG Tablet PO (21:46)
[2022-09-09] MEDS: traMADol 50 MG Tablet 100 MG PO (21:46)
[2022-09-10] MEDS: traMADol 50 MG Tablet PO (02:57)
[2022-09-10] MEDS: Modafinil 200 MG Tablet PO (05:57)
[2022-09-10] MEDS: Gabapentin 100 MG Capsule 200 MG PO ×2 (05:57→12:59)
[2022-09-10 07:48] VITALS: BP 146/75; PULSE 101; RESP 18; TEMP 37.1; O2SAT 96
[2022-09-10] MEDS: Enoxaparin 40 MG/0.4 ML Syringe SC (09:48)
[2022-09-10] MEDS: Multivitamins,Therapeutic Tablet 1 TABLET PO (09:49)
[2022-09-10] MEDS: Pantoprazole Sodium 40 MG Tablet PO (09:49)
[2022-09-10] MEDS: Calcium (Elemental) 500 MG Tablet PO ×2 (09:49→17:17)
[2022-09-10] MEDS: tiZANidine HCl 2 MG Tablet PO ×3 (09:49→22:46)
[2022-09-10] MEDS: Carvedilol 6.25 MG Tablet 15.625 MG PO (09:49)
[2022-09-10] MEDS: Lisinopril 40 MG Tablet PO (09:49)
[2022-09-10] MEDS: Menthol/Lanolin/Calamine/Znox 113 GM Tube 1 APPLIC TOPICAL ×2 (09:52→20:35)
--- NOTE | 2022-09-10 12:22 | PCM.PROGNOTE ---
Subjective Subjective Afebrile VSS Maintaining appropriate oxygen saturation on RA Oral intake is good. Eating 75 to 100% of her meals. Discussed with nursing - no problems that need addressed. Continues to complain of insomnia.......did not have insomnia when she was not taking Provigil Reviewed the PT/OT notes Medication list reviewed. Sophia denies lightheadedness, vertigo, CP, SOB at rest, SOB with exertion, cough, nausea, vomiting, abd pain, diarrhea, constipation, dysuria, calf pain and ankle swelling. Pain is adequately controlled. She is c/o insomnia. Objective Data Objective Data Vital Signs: Vital Signs Temp Pulse Resp BP Pulse Ox O2 Del Method O2 Flow Rate 98.7 F 101 H 18 146/75 H 96 Room Air 1 09/10/22 07:48 09/10/22 07:48 09/10/22 07:48 09/10/22 07:48 09/10/22 07:48 09/10/22 07:48 09/07/22 07:58 Oxygen Flow Rate (L/min) 1 Oxygen Delivery Method Room Air Weight: 193 lb 12.581 oz Body Mass Index (BMI) 31.1 Intake & Output: Intake and Output for Last 24 Hours 09/08/22 09/09/22 09/10/22 23:59 23:59 23:59 Intake Total 1630 / 1630 770 / 1120 960 / 960 Output Total 1750 / 1750 1700 / 2050 750 / 750 Balance -120 / -120 -930 / -930 210 / 210 Lab / Micro Data Result Diagrams: 09/11/22 05:31 09/08/22 05:33 Micro: Microbiology 08/26/22 03:43 Urine, Catheterized Urine Culture - Final Escherichia coli Physical Exam Const alert and no apparent distress Constitutional Narrative: pleasant and cooperative. HEENT moist oral mucous membranes Resp clear to auscultation bilaterally Cardio regular rate, regular rhythm and no gallops GI normal to inspection, nondistended, normoactive bowel sounds, soft to palpation and non-tender Extremity Extremity Narrative: Yogesh wraps are in place for compression. No significant ankle edema. Denies calf tenderness. She denies burning in her distal lower extremities and feet but continues to complain of tingling. 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 Continue therapy 2. Recheck a CBC with differential in the a.m. because she was leukopenic on her last CBC.......etiology of leukopenia is not known at this time 3. Decrease gabapentin to 400 mg at at bedtime. Decrease tizanidine to 2 mg at at bedtime and continue 2 mg twice daily. Continue to taper these medications off as tolerated. Charges/Coding Visit Charges Inpatient E&M: 69327 Subs Hosp L2
--- NOTE | 2022-09-10 14:50 | CASEMGMT ---
Social Work IDT discussed patient making limited progress and suggesting setting DC in another week. Insurance NRD 09/16, DC 3/, in insurance approves. SW met with pt to discuss DC plans and setting DC date. Pt confirmed the plan is home and reviewed DC needs: w/c, slideboard, HHC PT/OT/SN/SORIA. can transport and assist at home. Offered DC /. Pt agreeable. Offered skilled HHC list. Pt denied and requested [facility]. Phoned referral to [facility] but pt is out of service area. SW provided pt with printed skilled HHC list via [employer] to choose other options. Plan: DC home with 09/19, w/c, slideboard, HHC PT/OT/SN/SORIA JOSEPH Garcia
[2022-09-10] MEDS: Carvedilol 6.25 MG Tablet 18.75 MG PO (17:17)
[2022-09-10 20:32] VITALS: BP 126/65; PULSE 80; RESP 16; TEMP 37.2; O2SAT 97
[2022-09-10 20:40] VITALS: O2SAT 97
[2022-09-10] MEDS: Gabapentin 300 MG Capsule PO (22:46)
[2022-09-10] MEDS: Paroxetine 20 MG Tablet PO (22:47)
[2022-09-10] MEDS: Senna/Docusate Sodium 1 Tablet 2 TABLET PO (22:47)
[2022-09-10] MEDS: traMADol 50 MG Tablet 100 MG PO (22:47)
[2022-09-11 05:48] LABS: Absolute Lymphocyte Count 0.97 X10^3/uL (0.83-4.51); Basophil# 0.02 X10^3/uL; Basophil% 0.6 % (0-1); Eosinophil# 0.06 X10^3/uL; Eosinophils% 1.8 % (0-5); Hematocrit 39.3 % (37-47); Lymphocyte # 0.97 X10^3/ul (0.83-4.51); Lymphocyte % 28.4 % (19-41); Mean Corp Hgb Conc 33.1 g/dL (32-36); Mean Corpuscular Hgb 31.6 pg (27.0-32.0); Mean Corpuscular Volume 95.4 fL (81-99); Mean Platelet Vol. 9.1 fl (6.2-12.0); Monocyte# 0.38 X10^3/uL; Monocyte% 11.1 % (0-10); NRBC Flagged by Analyzer 0 % (0-5); Neutrophil # 1.96 X10^3/uL (2.7-7.7); Neutrophil % 57.5 % (47-70); Platelet Count 264 K/mm3 (150-450); RBC Distribution Width CV 13.6 % (11.6-14.6); RBC Distribution Width SD 47.6 fl (35.1-43.9); Red Blood Count 4.12 M/mm3 (4.2-5.4); White Blood Count 3.4 K/mm3 (4.4-11.0)
[2022-09-11] MEDS: Modafinil 200 MG Tablet PO (06:17)
[2022-09-11] MEDS: Gabapentin 100 MG Capsule 200 MG PO ×2 (06:17→13:55)
[2022-09-11 06:28] VITALS: BMI 29.9
--- NOTE | 2022-09-11 07:04 | NURSING ---
Pt wore her cpap for a total of 6 hours overnight. Got up to chair at 315, did wear cpap while in chair as well.
[2022-09-11 08:01] VITALS: BP 145/76; PULSE 89; RESP 18; TEMP 36.3; O2SAT 99
[2022-09-11] MEDS: Calcium (Elemental) 500 MG Tablet PO ×2 (08:04→16:24)
[2022-09-11] MEDS: Carvedilol 6.25 MG Tablet 18.75 MG PO ×2 (08:04→16:24)
[2022-09-11] MEDS: Multivitamins,Therapeutic Tablet 1 TABLET PO (08:04)
--- NOTE | 2022-09-11 09:21 | PCM.PN.BLA ---
Progress Note Afebrile VSS Maintaining appropriate oxygen saturation on RA Oral intake is good Discussed with nursing - no problems that need addressed Reviewed the PT/OT notes Medication list reviewed. All lab was personally reviewed. White blood cell count is still low at 3.4 with an unremarkable differential. Hemoglobin and platelets are within normal limits. Noelle is complaining of insomnia but nursing status that she slept better last night. She is sleeping approximately 5 hours before she wakes up. This is what she does at home but interestingly enough when the Provigil was discontinued at the previous hospital the insomnia resolved. She denies chest pain, shortness of breath, cough, nausea/vomiting, abdominal pain, dysuria, calf pain and lightheadedness. She did complain to nursing this morning that she felt edgy. Her tells me that she is always anxious. Physical Exam Const alert, oriented x3 and no apparent distress General Appearance: cooperative and comfortable Resp normal respiratory effort, no use of accessory muscles and clear to auscultation bilaterally Cardio regular rate, regular rhythm, S1 normal heart sound, S2 normal heart sound, no murmurs, no rub and no gallops GI normal to inspection, nondistended, normoactive bowel sounds, non-tender and non-distended GI Narrative: no guarding with palpation Extremity no clubbing, cyanosis or edema Skin no rashes or lesions noted, no wounds and no jaundice Neuro oriented x3 and CN's II-XII intact bilaterally Neuro Narrative: Still requiring the Muna lift to ambulate. Not yet able to stand, bear her weight and pivot. Doing fairly well with the sliding board. Goal is to get her home in the wheelchair and continue therapy at home with transition to outpatient when appropriate. 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 Continue therapy 2. I suspect the Provigil has a lot to do with her insomnia. She is on several sedating meds at bedtime and should be sleeping. We discussed decreasing the Provigil to 100 mg and she told me that she was initially on 100 mg but it did not work. Will decrease the Provigil tomorrow morning to 100 mg daily. She will follow-up with Dr. Cowart post discharge for treatment of narcolepsy and obstructive sleep apnea. 3. Etiology of the leukopenia is unknown at this time however it is stable and not a concern at this time. It may be related to use of cefadroxil to treat recent urinary tract infection. Will recheck next week. Visit Charges Inpatient E&M: 25977 Subs Hosp L2
[2022-09-11] MEDS: Pantoprazole Sodium 40 MG Tablet PO (09:27)
[2022-09-11] MEDS: Enoxaparin 40 MG/0.4 ML Syringe SC (09:27)
[2022-09-11] MEDS: Lisinopril 40 MG Tablet PO (09:28)
[2022-09-11] MEDS: tiZANidine HCl 2 MG Tablet PO ×3 (09:28→22:51)
[2022-09-11 19:45] VITALS: BP 149/69; PULSE 82; RESP 16; TEMP 37.1; O2SAT 97
[2022-09-11] MEDS: Menthol/Lanolin/Calamine/Znox 113 GM Tube 1 APPLIC TOPICAL (20:30)
[2022-09-11 20:50] VITALS: O2SAT 98
[2022-09-11] MEDS: Senna/Docusate Sodium 1 Tablet 2 TABLET PO (22:51)
[2022-09-11] MEDS: Gabapentin 300 MG Capsule PO (22:51)
[2022-09-11] MEDS: traMADol 50 MG Tablet 100 MG PO (22:52)
[2022-09-11] MEDS: Paroxetine 20 MG Tablet PO (22:52)
[2022-09-12] MEDS: Gabapentin 100 MG Capsule 200 MG PO ×2 (05:40→13:36)
[2022-09-12] MEDS: Modafinil 200 MG Tablet 100 MG PO (05:49)
[2022-09-12 07:36] VITALS: BP 140/75; PULSE 89; RESP 16; TEMP 36.7; O2SAT 95
[2022-09-12] MEDS: Carvedilol 6.25 MG Tablet 18.75 MG PO ×2 (08:03→16:52)
[2022-09-12] MEDS: Multivitamins,Therapeutic Tablet 1 TABLET PO (08:04)
[2022-09-12] MEDS: Enoxaparin 40 MG/0.4 ML Syringe SC (08:04)
[2022-09-12] MEDS: Polyethylene Glycol 3350 17 GM PACKET PO (08:05)
[2022-09-12] MEDS: Senna/Docusate Sodium 1 Tablet 2 TABLET PO (08:05)
[2022-09-12] MEDS: Calcium (Elemental) 500 MG Tablet PO ×2 (08:05→16:53)
[2022-09-12] MEDS: tiZANidine HCl 2 MG Tablet PO ×3 (08:06→21:46)
[2022-09-12] MEDS: Lisinopril 40 MG Tablet PO (08:06)
[2022-09-12] MEDS: Pantoprazole Sodium 40 MG Tablet PO (08:08)
[2022-09-12] MEDS: Menthol/Lanolin/Calamine/Znox 113 GM Tube 1 APPLIC TOPICAL ×2 (08:25→21:55)
[2022-09-12 19:21] VITALS: BP 145/70; PULSE 81; RESP 15; TEMP 37.1; O2SAT 96
[2022-09-12] MEDS: Gabapentin 300 MG Capsule PO (21:44)
[2022-09-12] MEDS: traMADol 50 MG Tablet 100 MG PO (21:45)
[2022-09-12] MEDS: Paroxetine 20 MG Tablet PO (21:45)
[2022-09-12 22:00] VITALS: PULSE 81; RESP 15; O2SAT 97
[2022-09-13] MEDS: Modafinil 200 MG Tablet 100 MG PO (05:00)
[2022-09-13] MEDS: Gabapentin 100 MG Capsule 200 MG PO ×2 (05:00→14:25)
[2022-09-13 07:36] VITALS: BP 151/79; PULSE 87; RESP 16; TEMP 37.1; O2SAT 97
[2022-09-13] MEDS: Multivitamins,Therapeutic Tablet 1 TABLET PO (08:05)
[2022-09-13] MEDS: Carvedilol 6.25 MG Tablet 18.75 MG PO ×2 (08:05→18:17)
[2022-09-13] MEDS: Calcium (Elemental) 500 MG Tablet PO ×2 (08:05→18:17)
[2022-09-13] MEDS: Senna/Docusate Sodium 1 Tablet 2 TABLET PO (08:23)
[2022-09-13] MEDS: Lisinopril 40 MG Tablet PO (08:23)
[2022-09-13] MEDS: Enoxaparin 40 MG/0.4 ML Syringe SC (08:23)
[2022-09-13] MEDS: Pantoprazole Sodium 40 MG Tablet PO (08:23)
[2022-09-13] MEDS: tiZANidine HCl 2 MG Tablet PO ×3 (08:23→21:45)
[2022-09-13] MEDS: Menthol/Lanolin/Calamine/Znox 113 GM Tube 1 APPLIC TOPICAL ×2 (08:29→21:53)
[2022-09-13 19:22] VITALS: BP 148/76; PULSE 84; RESP 18; TEMP 36.9; O2SAT 97
[2022-09-13] MEDS: traMADol 50 MG Tablet 100 MG PO (21:44)
[2022-09-13] MEDS: Gabapentin 300 MG Capsule PO (21:44)
[2022-09-13] MEDS: Paroxetine 20 MG Tablet PO (21:45)
[2022-09-13 22:00] VITALS: PULSE 83; RESP 16; O2SAT 98
[2022-09-14] MEDS: Modafinil 200 MG Tablet 100 MG PO (06:16)
[2022-09-14] MEDS: Gabapentin 100 MG Capsule 200 MG PO ×2 (06:17→22:00)
[2022-09-14 07:35] VITALS: BP 150/76; PULSE 83; RESP 16; TEMP 37.2; O2SAT 95
[2022-09-14] MEDS: Calcium (Elemental) 500 MG Tablet PO ×2 (09:01→16:18)
[2022-09-14] MEDS: Enoxaparin 40 MG/0.4 ML Syringe SC (09:01)
[2022-09-14] MEDS: Lisinopril 40 MG Tablet PO (09:01)
[2022-09-14] MEDS: tiZANidine HCl 2 MG Tablet PO (09:02)
[2022-09-14] MEDS: Carvedilol 6.25 MG Tablet 18.75 MG PO (09:02)
[2022-09-14] MEDS: Pantoprazole Sodium 40 MG Tablet PO (09:02)
[2022-09-14] MEDS: Multivitamins,Therapeutic Tablet 1 TABLET PO (09:02)
[2022-09-14] MEDS: Menthol/Lanolin/Calamine/Znox 113 GM Tube 1 APPLIC TOPICAL ×2 (09:05→22:02)
--- NOTE | 2022-09-14 11:11 | PN_ITS ---
Subjective Subjective Afebrile VSS-systolic blood pressure is nearly always above goal but the diastolic is appropriate. Maintaining appropriate oxygen saturation on RA Oral intake is good Discussed with nursing - no problems that need addressed Reviewed the PT/OT notes Medication list reviewed. Sophia's only complaint is insomnia which she did not have prior to admission because Provigil was discontinued at the last hospital. Provigil was decreased to 100 mg last week and she is still alert during the day. Sophia denies chest pain, shortness of breath, lightheadedness, palpitations, nausea/vomiting/abdominal pain, dysuria, calf pain and cephalgia. Objective Data Objective Data Vital Signs: Vital Signs Temp Pulse Resp BP Pulse Ox O2 Del Method O2 Flow Rate 98.9 F 83 16 150/76 H 95 Room Air 1 09/14/22 07:35 09/14/22 07:35 09/14/22 07:35 09/14/22 07:35 09/14/22 07:35 09/14/22 07:35 09/07/22 07:58 Oxygen Flow Rate (L/min) 1 Oxygen Delivery Method Room Air Weight: 190 lb 11.198 oz Body Mass Index (BMI) 29.9 Intake & Output: Intake and Output for Last 24 Hours 09/12/22 09/13/22 09/14/22 23:59 23:59 23:59 Intake Total 1840 / 1960 2100 / 2100 150 / 150 Output Total 1450 / 1850 2150 / 2150 375 / 375 Balance 390 / 110 -50 / -50 -225 / -225 Lab / Micro Data Result Diagrams: 09/11/22 05:31 09/08/22 05:33 Micro: Microbiology 08/26/22 03:43 Urine, Catheterized Urine Culture - Final Escherichia coli Physical Exam Const alert, oriented x3 and no apparent distress Constitutional Narrative: pleasant and cooperative. General Appearance: cooperative and comfortable HEENT moist oral mucous membranes Neck nuchal rigidity, nodes and no carotid bruits General: torticollis Resp normal respiratory effort, normal air movement, no use of accessory muscles and clear to auscultation bilaterally Effort and Inspection: able to speak in complete sentences Cardio regular rate, regular rhythm, S1 normal heart sound, S2 normal heart sound, no murmurs, no rub and no gallops Cardio Narrative: Resting heart rate has improved with increasing dose of Coreg. GI normal to inspection, nondistended, normoactive bowel sounds, soft to palpation, non-tender and non-distended GI Narrative: no guarding with palpation Back/Spine Back/Spine Narrative: Low back pain and pain in the posterior thighs. Extremity no calf tenderness and no pedal edema Extremity Narrative: Sophia denies pain in her legs at this time. General Extremity: edema Skin no rashes or lesions noted, no wounds and no jaundice Skin Narrative: No rashes, no skin breakdown. General Skin Exam: no breakdown Rashes: no rashes Neuro oriented x3 and CN's II-XII intact bilaterally Neuro Narrative: Still unable to bear weight on her lower extremities without the assistance of the Muna-Lift. Will be wheel chair dependent at home at the time of DC. Continues to c/o tingling in the hands and the feet but, she is not as bothered by this as she was at admission. No spasms and no burning pain......even with tapering of the Gabapentin. 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 Continue therapy 2. Increase carvedilol to 25 mg p.o. twice daily 3. Decrease gabapentin to 200 mg nightly and 100 mg twice daily. 4. Change tizanidine to every 8 hours as needed muscle spasm 5. DC Provogil to see if the insomnia resolves. Charges/Coding Visit Charges Inpatient E&M: 79335 Subs Hosp L2
[2022-09-14] MEDS: Gabapentin 100 MG Capsule PO (12:57)
--- NOTE | 2022-09-14 13:07 | CASEMGMT ---
Addendum entered by Kari De Anda 09/15/22 08:54: [facility] cannot accept. [facility] can accept. Original Note: Social Work IDT met with patient and for Team meeting. Discussed patient's progress in PT/OT/SN. Educated to [employer] insurance with [employer] 09/16 and IDT set DC date for 09/19. Confirmed DME needs: slideboard, drop arm w/c - IDT added drop arm BSC that is wider. SW updated order to [facility]. [facility] PT/OT/SN/SORIA. Inquired about HHC choice. Pt prefers: [facility], [facility], [facility]. SW placed referrals via [facility]. Therapy offered training. declined therapy training. Plan: DC home with 09/19, slideboard, drop arm BSC and W/C, [facility] PT/OT/SN/SORIA Kari De Anda, SECURITY SERVICES MANAGER [employer]
[2022-09-14] MEDS: Carvedilol 25 MG Tablet PO (16:18)
[2022-09-14 19:41] VITALS: BP 124/66; PULSE 85; RESP 16; TEMP 36.6; O2SAT 96
[2022-09-14] MEDS: traMADol 50 MG Tablet 100 MG PO (22:00)
[2022-09-14] MEDS: Senna/Docusate Sodium 1 Tablet 2 TABLET PO (22:02)
[2022-09-14] MEDS: Paroxetine 20 MG Tablet PO (22:02)
[2022-09-15] MEDS: Gabapentin 100 MG Capsule PO ×2 (05:10→14:05)
[2022-09-15 07:24] VITALS: BP 138/75; PULSE 85; RESP 16; TEMP 37; O2SAT 95
[2022-09-15] MEDS: Enoxaparin 40 MG/0.4 ML Syringe SC (07:44)
[2022-09-15] MEDS: Multivitamins,Therapeutic Tablet 1 TABLET PO (07:44)
[2022-09-15] MEDS: Calcium (Elemental) 500 MG Tablet PO ×2 (07:44→16:46)
[2022-09-15] MEDS: Lisinopril 40 MG Tablet PO (07:44)
[2022-09-15] MEDS: Carvedilol 25 MG Tablet PO ×2 (07:44→16:46)
[2022-09-15] MEDS: Pantoprazole Sodium 40 MG Tablet PO (07:44)
[2022-09-15] MEDS: Senna/Docusate Sodium 1 Tablet 2 TABLET PO ×2 (07:46→22:01)
[2022-09-15] MEDS: Menthol/Lanolin/Calamine/Znox 113 GM Tube 1 APPLIC TOPICAL ×2 (07:48→22:02)
[2022-09-15 19:24] VITALS: BP 149/68; PULSE 82; RESP 18; TEMP 36.6; O2SAT 98
[2022-09-15 19:55] VITALS: O2SAT 93
[2022-09-15] MEDS: Paroxetine 20 MG Tablet PO (22:01)
[2022-09-15] MEDS: Gabapentin 100 MG Capsule 200 MG PO (22:01)
[2022-09-15] MEDS: traMADol 50 MG Tablet 100 MG PO (22:02)
[2022-09-16] MEDS: Gabapentin 100 MG Capsule PO ×2 (05:11→13:31)
--- NOTE | 2022-09-16 07:18 | NURSING ---
Pt wore her cpap for a total of 6 hours during the night, slept well.
[2022-09-16 07:29] VITALS: BP 150/71; PULSE 87; RESP 16; TEMP 36.6; O2SAT 98
[2022-09-16] MEDS: Carvedilol 25 MG Tablet PO ×2 (09:05→17:17)
[2022-09-16] MEDS: Multivitamins,Therapeutic Tablet 1 TABLET PO (09:05)
[2022-09-16] MEDS: Calcium (Elemental) 500 MG Tablet PO ×2 (09:05→17:17)
[2022-09-16] MEDS: Enoxaparin 40 MG/0.4 ML Syringe SC (09:06)
[2022-09-16] MEDS: Pantoprazole Sodium 40 MG Tablet PO (09:06)
[2022-09-16] MEDS: Lisinopril 40 MG Tablet PO (09:06)
[2022-09-16] MEDS: Senna/Docusate Sodium 1 Tablet 2 TABLET PO ×2 (09:07→22:04)
[2022-09-16] MEDS: Menthol/Lanolin/Calamine/Znox 113 GM Tube 1 APPLIC TOPICAL ×2 (09:07→22:06)
--- NOTE | 2022-09-16 09:08 | PCM.PROGNOTE ---
Subjective Subjective Afebrile VSS Maintaining appropriate oxygen saturation on RA Oral intake is good Discussed with nursing - no problems that need addressed. Slept well last night. Provigil was discontinued completely on no Provigil yesterday AM Reviewed the PT/OT/ST notes Medication list reviewed. Sophia told me that she is sleeping better with the discontinuation of the Provigil. She denies having difficulty sleeping at home while on Provigil? I offered her a trail of Wellbutrin to keep her awake during the day but, she is going to go back to taking Provigil at home and can discuss with Dr. Cowart IF the insomnia recurs when she starts taking the Provigil again post discharge. She is having occasional muscle spasms but, they are brief and she has not been asking for the Tizanidine. Mostly she has tingling and numbness in her legs. She is excited to be going home. She denies augustin pain, SOB, CP, dysuria. Tells me that she felt a little more tired yesterday afternoon than she did when she took the Provigil. Objective Data Objective Data Vital Signs: Vital Signs Temp Pulse Resp BP Pulse Ox O2 Del Method O2 Flow Rate 98 F 87 16 150/71 H 98 Room Air 1 09/16/22 07:29 09/16/22 07:29 09/16/22 07:29 09/16/22 07:29 09/16/22 07:29 09/16/22 07:29 09/07/22 07:58 Oxygen Flow Rate (L/min) 1 Oxygen Delivery Method Room Air Weight: 190 lb 11.198 oz Body Mass Index (BMI) 29.9 Intake & Output: Intake and Output for Last 24 Hours 09/14/22 09/15/22 09/16/22 23:59 23:59 23:59 Intake Total 930 / 930 1920 / 1920 390 / 390 Output Total 1375 / 1375 1250 / 1250 300 / 300 Balance -445 / -445 670 / 670 90 / 90 Lab / Micro Data Result Diagrams: 09/11/22 05:31 09/08/22 05:33 Micro: Microbiology 08/26/22 03:43 Urine, Catheterized Urine Culture - Final Escherichia coli Physical Exam Const alert, oriented x3 and no apparent distress General Appearance: cooperative Resp clear to auscultation bilaterally Cardio regular rate, regular rhythm and no gallops GI normal to inspection, nondistended, normoactive bowel sounds, soft to palpation and non-tender Extremity no calf tenderness General Extremity: Negative for edema Skin General Skin Exam: no breakdown Rashes: no rashes Neuro Neuro Narrative: Memory is poor. We discussed on Wednesday on rounds that she will need a gait belt at home to assist with transfers.......she asked me again today if she would need a gait belt. Not able to stand and support her own weight. PT is still using the Muna Lift to ambulate (11 ft yesterday) with a WC follow and assist of 2. Min-mod assist with the sliding board and more asst if going uphill. Despite being told multiple times to obtain loose clothing for ease of LB dressing she is still wearing tight leggings. Yesterday she had shorts on and was getting her skin caught on the slide board.......PT had to reposition and use VC's to stop her and allow re-postioning and adjustment of the slide board for safe use of the slide board. Transfers from slide board yesterday still mod-max assist for safety. Assessment & Plan Assessment/Plan (1) Physical debility: PLAN: Still with significant disability and requiring mod-max assist to use the slide board safely. Unable to stand and support her own weight. Memory retention from day to day is poor. will not be coming in for family training. I am skeptical about her safe return home on Wednesday. In my opinion she needs additional therapy prior to returning home. She is going home with [facility].......they will not have a Muna-lift available to stand her or ambulate......I suspect she may decline at home. Would get her to OP therapy as soon as possible after DC. 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 (5) Hypertension: PLAN: Coreg increased to 25 mg BID on Wednesday. Systolic BP is still above goal. PLAN: Plan 1. Continue therapy 2. CBC with no differential and BMP in the AM. 3. Fax Prescriptions to [facility] on Wednesday in preparation for discharge on Wednesday. 4. DC Gabapentin 5. ST for evaluation of cognitive function. Charges/Coding Visit Charges Inpatient E&M: 06957 Subs Hosp L2
[2022-09-16 21:06] VITALS: BP 124/71; PULSE 76; RESP 16; TEMP 36.7; O2SAT 97
[2022-09-16 21:10] VITALS: O2SAT 97
[2022-09-16] MEDS: traMADol 50 MG Tablet 100 MG PO (22:04)
[2022-09-16] MEDS: Paroxetine 20 MG Tablet PO (22:04)
[2022-09-16] MEDS: Gabapentin 100 MG Capsule 200 MG PO (22:04)
[2022-09-17] MEDS: Gabapentin 100 MG Capsule PO ×2 (05:09→13:52)
[2022-09-17 05:33] LABS: Hemoglobin 13.4 g/dL (12.0-15.0); Mean Corp Hgb Conc 33.5 g/dL (32-36); Mean Corpuscular Hgb 32.1 pg (27.0-32.0); Mean Corpuscular Volume 95.9 fL (81-99); Mean Platelet Vol. 9.1 fl (6.2-12.0); Platelet Count 239 K/mm3 (150-450); RBC Distribution Width CV 13.9 % (11.6-14.6); RBC Distribution Width SD 48.8 fl (35.1-43.9); Red Blood Count 4.17 M/mm3 (4.2-5.4); White Blood Count 3.3 K/mm3 (4.4-11.0)
[2022-09-17 06:38] LABS: Anion Gap 7 (5-15); BUN 12 mg/dL (7-18); BUN/Creat Ratio 19.1 RATIO (10-20); Calcium,Total 9.5 mg/dL (8.5-10.1); Chloride 104 mmol/L (98-107); Creatinine, Serum 0.63 mg/dL (0.55-1.02); EST Glomerular Filtration Rate 101 mL/min (>60); Est Glom Filt Rate - Afr Amer 122 mL/min (>60); Estimated Creatinine Clearance 53.09 ml/min; Glucose 104 mg/dL (74-106); Potassium 3.9 mmol/L (3.5-5.1); Sodium Level 140 mmol/L (136-145)
--- NOTE | 2022-09-17 06:40 | NURSING ---
Pt slept well, wore cpap for total of 6 hours.
[2022-09-17 08:03] VITALS: BP 127/70; PULSE 78; RESP 16; TEMP 36.6; O2SAT 95
[2022-09-17] MEDS: Carvedilol 25 MG Tablet PO ×2 (08:51→16:16)
[2022-09-17] MEDS: Pantoprazole Sodium 40 MG Tablet PO (08:52)
[2022-09-17] MEDS: Senna/Docusate Sodium 1 Tablet 2 TABLET PO ×2 (08:52→21:57)
[2022-09-17] MEDS: Multivitamins,Therapeutic Tablet 1 TABLET PO (08:52)
[2022-09-17] MEDS: Calcium (Elemental) 500 MG Tablet PO ×2 (08:52→16:16)
[2022-09-17] MEDS: Lisinopril 40 MG Tablet PO (08:52)
[2022-09-17] MEDS: Enoxaparin 40 MG/0.4 ML Syringe SC (08:52)
--- NOTE | 2022-09-17 12:21 | PCM.PROGNOTE ---
Subjective Subjective Afebrile VSS Maintaining appropriate oxygen saturation on RA Oral intake is good Discussed with nursing - no problems that need addressed Reviewed the PT/OT notes -she had a shower with occupational therapy today and required only minimal assistance with bathing. She is supervision/set up with upper body dressing and requires moderate assistance for lower body dressing. She is total assist for toileting and toilet transfer. She is moderate assistance for tub/shower transfer. With physical therapy she is still requiring voice cues for slide board placement and assistance at times for safe placement prior and during transfer. She is able to propel the wheelchair 100 feet at standby assist. Medication list reviewed. Sophia is sleeping well now that the Provigil has been discontinued. She is c/o some soreness in her left eye today. alert and oriented X 3 Lungs - CTA MM are dry. HRRR, no gallop Abd is soft, NT, ND and has nl BS's mild ankle edema no change in the neuro exam Impressions 1. GBS 2. BL LE hemiparesis Plan DC tomorrow to home Objective Data Objective Data Vital Signs: Vital Signs Temp Pulse Resp BP Pulse Ox O2 Del Method O2 Flow Rate 97.9 F 78 16 127/70 H 95 Room Air 1 09/17/22 08:03 09/17/22 08:03 09/17/22 08:03 09/17/22 08:03 09/17/22 08:03 09/17/22 08:03 09/07/22 07:58 Oxygen Flow Rate (L/min) 1 Oxygen Delivery Method Room Air Weight: 190 lb 11.198 oz Body Mass Index (BMI) 29.9 Intake & Output: Intake and Output for Last 24 Hours 09/15/22 09/16/22 09/17/22 23:59 23:59 23:59 Intake Total 1920 / 1920 2330 / 2330 500 / 500 Output Total 1250 / 1250 700 / 700 550 / 550 Balance 670 / 670 1630 / 1630 -50 / -50 Lab / Micro Data Result Diagrams: 09/17/22 05:25 09/17/22 05:25 Labs: Laboratory Results - last 24 hr 09/17/22 05:25: WBC 3.3 L, RBC 4.17 L, Hgb 13.4, Hct 40.0, MCV 95.9, MCH 32.1 H, MCHC 33.5, RDW Std Deviation 48.8 H, RDW Coeff of Yousuf 13.9, Plt Count 239, MPV 9.1 09/17/22 05:25: Sodium 140, Potassium 3.9, Chloride 104, Carbon Dioxide 29.0, Anion Gap 7, BUN 12, Creatinine 0.63, Estim Creat Clear Calc 53.09, Est GFR (MDRD) Af Amer 122, Est GFR (MDRD) Non-Af 101, BUN/Creatinine Ratio 19.1, Glucose 104, Calcium 9.5 Micro: Microbiology 08/26/22 03:43 Urine, Catheterized Urine Culture - Final Escherichia coli Charges/Coding Visit Charges Inpatient E&M: 32846 Subs Hosp L2
--- NOTE | 2022-09-17 13:30 | CASEMGMT ---
Social Work Several correspondence with [facility] about requested DME. Pt is also requesting a tristan lift. PT agrees that is appropriate. Faxed new order to [facility] .[facility] stated the elevating leg rests are on back order as well as hoyers. SW spoke with pt to update on DME needs. Pt stated the tristan will primarily be used for transfers in and out of the bed. Pt spoke with OT about alternatives and can be managed prior to tristan arrival. All DME will be delivered to the pt's room on 09/18. JOSEPH GarciaW
[2022-09-17 19:32] VITALS: BP 111/72; PULSE 82; RESP 16; TEMP 37.2; O2SAT 96
[2022-09-17] MEDS: Oxymetazoline 0.05% 1 SPRAY SPRAY.BTL 2 SPRAY NASAL (21:55)
[2022-09-17] MEDS: Gabapentin 100 MG Capsule 200 MG PO (21:56)
[2022-09-17] MEDS: Paroxetine 20 MG Tablet PO (21:56)
[2022-09-17] MEDS: traMADol 50 MG Tablet 100 MG PO (21:57)
[2022-09-17 22:00] VITALS: PULSE 85; RESP 17; O2SAT 95
[2022-09-18 06:00] VITALS: BMI 30.1
[2022-09-18] MEDS: Gabapentin 100 MG Capsule PO ×2 (06:12→14:46)
[2022-09-18 07:57] VITALS: BP 150/72; PULSE 88; RESP 18; TEMP 36.6; O2SAT 95
[2022-09-18] MEDS: Menthol/Lanolin/Calamine/Znox 113 GM Tube 1 APPLIC TOPICAL ×2 (07:59→21:34)
[2022-09-18] MEDS: Calcium (Elemental) 500 MG Tablet PO ×2 (08:00→17:07)
[2022-09-18] MEDS: Lisinopril 40 MG Tablet PO (08:00)
[2022-09-18] MEDS: Oxymetazoline 0.05% 1 SPRAY SPRAY.BTL 2 SPRAY NASAL ×2 (08:00→21:28)
[2022-09-18] MEDS: Carvedilol 25 MG Tablet PO ×2 (08:00→17:07)
[2022-09-18] MEDS: Pantoprazole Sodium 40 MG Tablet PO (08:00)
[2022-09-18] MEDS: Multivitamins,Therapeutic Tablet 1 TABLET PO (08:00)
[2022-09-18] MEDS: Enoxaparin 40 MG/0.4 ML Syringe SC (08:01)
--- NOTE | 2022-09-18 18:48 | DCINST_ITS ---
Discharge Instructions Diet Discharge Diet: No restrictions Activity Discharge Activity: May Not Drive, May Shower and - (Use the wheel chair. ) Weight Bearing Status: No weight bearing (she is non wt bearing now and we have been using the Muna Lift to stand. she will not have a Muna Lift at home so she is only to attempt standing IF the therapist stands her. ) Keep extremity elevated above heart level: Legs Dressing / Incision Call your doctor if you observe: Fever of 101 or Higher, Inability to urinate, Inability to have a bowel movement, Shortness of breath, Dizziness, Fainting spells, Chest pain, Increased palpitations (irregular heartbeat), Calf discomfort and Uncontrolled pain Follow Up Care Please Follow Up With: Danielle Lui PA-C When: 09/23/2022 at 2:15 PM. She will also follow-up with neurology. Test Results: Test results from this visit will be discussed in further detail at your follow- up appointment, if applicable. Pending Tests Upon Discharge: none Discharge Plan Admission Admit Date/Time: 08/19/22 22:00 Primary Reason for Your Visit: Debility. Attending Provider: Lesley Ahumada Primary Care Provider: Danielle Liu Instructions Patient Instructions: Modafinil Oral tablet, Guillain-[place]? Syndrome Additional Instructions / Restrictions: 1. I think you will decline if you are doing Home Health Care for longer than 2 weeks because we have been using the Muna-Lift to stand you and to ambulate and Home Health does not have a Muna Lift to use. You should start OP PT/OT néstor following DC from rehab. 2. You will be much better off if you get some long skirts, house dresses or XXL sweats to wear rather than leggings because tight clothing is very hard to get on you when you can not help. Do NOT wear shorts when you are using the sliding board because it will cause skin tears. Do the exercises given to you by the therapists at LEAST 1 time and day. Two times a day would be better. 3. We will allow you to take our wheelchair home to use until the SW can arrange for a appropriately sized WC and then we can switch out. 4. I suggest you talk with Dr. Cowart about the insomnia you have had with Provigil. I have given you some literature to read about Provigil and the potential side effects. 5. You are on higher doses of BP meds than you had been taking and your BP is still not adequately controlled at times......If you have a BP cuff at home take your BP at different times of the day and keep a record to take to your next appt with your PCP. 6. I have given you prescriptions for some Tramadol and Tizanidine for pain and muscle spasms. Because I am not your PCP I can only write for a weeks worth of these medications. If you need refills please call your PCP. 7. If you have any questions after leaving rehab please don't hesitate to call me. OFFICE: [phone] CELL: [phone] Discharge Orders/Prescriptions Prescriptions: New calcium carbonate [Oyster Shell Calcium 500] 500 mg calcium (1,250 mg) Tablet 500 mg PO BIDCM Qty: 0 0RF Rx Instructions: Take 1 tab twice a day with food. It is better absorbed when you take it twice a day. carvedilol 25 mg Tablet 25 mg PO BIDCM Qty: 60 0RF acetaminophen 325 mg Tablet 650 mg PO Q6H PRN PRN (Reason: pain or fever) Qty: 0 0RF sennosides-docusate sodium [Stool Softener-Stimulant Laxat] 8.6-50 mg Tablet 2 tab PO BID Qty: 120 0RF tizanidine 2 mg Tablet 2 mg PO Q8H PRN PRN (Reason: Muscle Spasm) Qty: 20 0RF lisinopril 40 mg Tablet 40 mg PO DAILY Qty: 30 0RF Continued aoaecmfpuna-wsl-pappbbnez-hrb 149-hyalur 500 mg-500 mg-66.7 mg tablet 500-500-66.7 mg tablet 1 tab PO DAILY pantoprazole 40 mg Tablet,Delayed Release (Dr/Ec) 40 mg PO DAILY paroxetine HCl [Paxil] 20 mg Tablet 20 mg PO DAILY Multi-Vitamin 1 tablet DAILY tramadol 50 mg Tablet 50 mg PO Q6H PRN (Reason: pain 1-10) Qty: 28 0RF Discontinued lisinopril 10 mg tablet 40 mg PO QDAY hydrochlorothiazide 25 mg tablet 25 mg PO QAM docusate sodium 100 mg Capsule 100 mg PO BID gabapentin 300 mg Capsule 300 mg PO QHS calcium 600 mg Capsule 1,200 mg PO DAILY sennosides [senna] 8.6 mg Tablet 8.6 mg PO BID polyethylene glycol 3350 [Miralax] 17 gram Powder In Packet 17 g PO DAILY carvedilol 3.125 mg Tablet 3.125 mg PO BID Rx Instructions: must administer with a meal/food Referrals / Follow Up: [facility] ([facility]) [Other] - 10/12/22 1:30 pm [facility] [Other] - 09/28/22 3:30 pm Danielle Liu PA-C [Primary Care Provider] - 09/23/22 2:15 pm Disposition Disposition (needs filled in before D/C Order can be placed): Home Health Service
[2022-09-18 19:23] VITALS: BP 138/60; PULSE 60; RESP 15; TEMP 36.6; O2SAT 98
--- NOTE | 2022-09-18 19:26 | PCM.DC.SUM ---
Providers Date of Admission: 08/19/22 Date of Discharge: 09/19/22 Primary Care Physician: Danielle Liu PA-C Reason For Visit: GUILLAIN BARRE SYNDROME Diagnosis Discharge Diagnosis (1) Physical debility: Status: Acute Code(s): R53.81 - Other malaise Plan: Still not able to support her wt when standing at ID. Not able to ambulate without the Muna Lift to hold her up. Recommend OP PT/OT as soon as possible so she does not lose ground because she will not have a Muna Lift at home. 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 (3) Lower extremity weakness: Status: Acute Code(s): R29.898 - Other symptoms and signs involving the musculoskeletal system (4) Insomnia: Status: Resolved Code(s): G47.00 - Insomnia, unspecified Plan: Resolved with discontinuation of Provigil. (5) Hypertension: Status: Inactive Code(s): I10 - Essential (primary) hypertension Plan: Coreg increased to 25 mg BID on Wednesday. Lisinopril increased from 10 mg daily to 40 mg daily. Systolic BP is still above goal. (6) Cystitis: Status: Resolved Code(s): N30.90 - Cystitis, unspecified without hematuria (7) Dehydration: Status: Acute Code(s): E86.0 - Dehydration Plan: She is chronically dehydrated secondary to poor oral intake. BUN/creatinine ratio is still elevated at discharge despite discontinuing hydrochlorothiazide early in her admission to rehab. HCTZ was not continued at ID due to chronic dehydration (8) Narcolepsy: Status: Acute Code(s): G47.419 - Narcolepsy without cataplexy Plan: Follows with Dr. Cowart and takes Provigil. The Provigil causes insomnia which resolved with discontinuation of Provigil. She plans on restarting the Provigil once she is home. Her states she is chronically anxious and this is a SE of Provigil and so is insomnia. I recommended she discuss this with Dr. Alcocer. (9) Obstructive sleep apnea: Status: Inactive Code(s): G47.33 - Obstructive sleep apnea (adult) (pediatric) Plan: Compliant with CPAP for 5-6 hours a night. (10) Anxiety with depression: Status: Inactive Code(s): F41.8 - Other specified anxiety disorders Plan: Very anxious. (11) Hyperlipidemia: Status: Inactive Code(s): E78.5 - Hyperlipidemia, unspecified (12) GERD (gastroesophageal reflux disease): Status: Inactive Code(s): K21.9 - Gastro-esophageal reflux disease without esophagitis (13) Paresthesias: Status: Acute Code(s): R20.2 - Paresthesia of skin Medications at Discharge Home Medications eryvxwiycxw-mby-qkpaxwlou-hrb 149-hyalur 500 mg-500 mg-66.7 mg tablet (Xzmofgceycl-Ojfnxwrtwlq-BFY (with antiox)) 1 tab PO DAILY supplement 10/25/17 pantoprazole 40 mg tablet,delayed release 40 mg PO DAILY stomach acid 08/19/22 Multi-Vitamin 1 tablet DAILY SUPPLEMENT 08/20/22 paroxetine HCl 20 mg tablet (Paxil) 20 mg PO DAILY ANTI DEPRESSANT 08/20/22 acetaminophen 325 mg tablet 650 mg PO Q6H PRN PRN pain or fever #0 tabs 09/18/22 calcium carbonate 500 mg calcium (1,250 mg) tablet (Oyster Shell Calcium 500) 500 mg PO BIDCM #0 tabs 09/18/22 carvedilol 25 mg tablet 25 mg PO BIDCM #60 tabs 09/18/22 lisinopril 40 mg tablet 40 mg PO DAILY #30 tabs 09/18/22 sennosides 8.6 mg-docusate sodium 50 mg tablet (Stool Softener-Stimulant Laxative) 2 tab PO BID #120 tabs 09/18/22 tizanidine 2 mg tablet 2 mg PO Q8H PRN PRN Muscle Spasm #20 tabs 09/18/22 tramadol 50 mg tablet 50 mg PO Q6H PRN pain 1-10 #28 tabs 09/18/22 Hospital Course Operations None Procedures None Summary of Care Provided Minutes Spent on Discharge: 40 Hospital Course: ?SOPHIA JAVIER, is a 67 YO F with a PMH of HTN, anxiety/depression, LISA, GERD, HLD and narcolepsy who presented to the emergency department at [facility] on 08/12/2022 complaining of numbness and weakness in her lower extremities.? It had started the preceding evening.? The tingling and numbness was worse in her feet.? She was having difficulty ambulating.? Recent hx was + for a reverse shoulder procedure done by Dr. Johnson 6 weeks prior to her presentation to the ED.? She also had a Shingrix vaccine 10 days prior to presenting to the ED. On GA she had decreased sensation to light touch in both feet.? she had good strength in her legs but she had absent patellar reflexes.? Lab was unremarkable with the exception of an elevated C-reactive protein at 8.56 and a random blood sugar of 152.? Urine had 25-50 WBCs per high-power field and was positive for nitrites. she was treated with antibiotics.? Urine culture grew mixed GM _ and GM +'s.? Noncontrast CT brain was normal. An LP was done which showed a protein of 46 and a glucose of 72 with 0 white blood cells and 0 red blood cells.? She was treated with 6 doses of IVIG Consultation was obtained with teleneurology who felt Guillain-Godinez? was a consideration and transfer to a facility with an onsite neurologist was recommended.? She was transferred to [facility].? She was treated with IVIG for 6 days at [facility].? NIF's were monitored serially and remained in the normal range of -40-60.? A CT scan of her spine showed some degenerative disc disease of the lumbar spine but nothing acute.? She was seen by PT/OT during her stay at [place] [facility] and due to bilateral lower extremity leg weakness with difficulty ambulating admission to acute rehab was recommended post discharge.? Sophia was transferred to [facility] acute rehab on 08/19/2022 for 3 hours of therapy daily to restore function/independence at or near her prior level. Sophia was sleeping well at admission to rehab but, she had been taken off Provigil while at [place] [facility]. She complained of being tired during the day and requested to be put back on Provigil and so she was restarted on 200 mg daily. She complained everyday of insomnia after that despite taking several sedating medications at bedtime. Finally she allowed us to DC the Provigil and she slept well after that. She plans on restarting the Provigil once she is home.....I asked that she discuss this with Dr. Cowart first. The pain in the legs was controlled with Gabapentin. The weakness in the legs did not significantly improve. At the time of DC she had ambulated up to 23' with the MUNA LIFT with a WC follow. She was able to propel the WC 100'. She was independent with eating and grooming and required only min assist with bathing. She was total assistance for lower body dressing and max assist for toileting. She was mod assist for toilet transfer and tub and shower transfer. She was discharged home with [facility] for PT/OT/SN/SORIA. DME included slide board, drop arm WC, BSC and a WC. She will follow up with her PCP and a neurologist. Physical Exam Const alert and no apparent distress Constitutional Narrative: pleasant and cooperative. General Appearance: cooperative HEENT normocephalic, head/scalp atraumatic and hearing grossly normal bilaterally Eyes PERRL, EOMs intact bilaterally, conjunctivae normal, no scleral icterus and normal visual coleman by confrontation General Eye: normal appearance of both eyes Neck nuchal rigidity, no lymphadenopathy, supple, nodes and no carotid bruits General: trachea midline and torticollis Chest Chest: symmetrical chest wall rise Resp normal respiratory effort, normal air movement, no use of accessory muscles and clear to auscultation bilaterally Resp Narrative: Not tachypneic and no labored breathing. Effort and Inspection: able to speak in complete sentences; Negative for tachypneic Cardio regular rate, regular rhythm, S1 normal heart sound, S2 normal heart sound, no murmurs, no rub and no gallops GI normal to inspection, nondistended, normoactive bowel sounds, soft to palpation, non-tender and non-distended GI Narrative: no guarding with palpation Extremity no clubbing, cyanosis or edema and no calf tenderness Extremity Narrative: Sophia denies pain in her legs at this time. Skin no wounds and no jaundice Skin Narrative: No rashes, no skin breakdown. General Skin Exam: no breakdown Rashes: no rashes Neuro oriented x3 and CN's II-XII intact bilaterally Neuro Narrative: Memory is poor. PT is still using the Muna Lift to ambulate (23 ft yesterday) with a WC follow and assist of 2. Min-mod assist with the sliding board and more asst if going uphill. Despite being told multiple times to obtain loose clothing for ease of LB dressing she is still wearing tight leggings. She is total assist with LB dressing but, she can dress her upper body with only min assist. Still with numbness in the hands and in the LE's. Muscle spasms have resolved. No pain in the legs today. Coordination / Balance: fsevjh-cy-ohrd test normal Speech: speech normal Psych mental status grossly normal, thought process normal, cooperative, affect normal, speech normal, denies hallucinations, denies homicidal ideation and denies suicidal ideation Psych Narrative: appropriate, makes good eye contact......poor memory Appearance: grossly normal Attitude: calm Activity / Motor Behavior: appropriate eye contact; Negative for psychomotor agitation, fidgetting or restless Mood & Affect: anxious Weight / BMI Weight Weight: 191 lb 12.835 oz Body Mass Index (BMI) 30.1 ABG / Lab / Microbiology Data Result Diagrams: 09/17/22 05:25 09/17/22 05:25 Microbiology: Microbiology 08/26/22 03:43 Urine, Catheterized Urine Culture - Final Escherichia coli D/C Instructions Discharge Diet: No restrictions Weight Bearing Status: No weight bearing (she is non wt bearing now and we have been using the Muna Lift to stand. she will not have a Muna Lift at home so she is only to attempt standing IF the therapist stands her. ) Keep extremity elevated above heart level: Legs Call your doctor if you observe: Fever of 101 or Higher, Inability to urinate, Inability to have a bowel movement, Shortness of breath, Dizziness, Fainting spells, Chest pain, Increased palpitations (irregular heartbeat), Calf discomfort and Uncontrolled pain Pending Tests Upon Discharge: none Please Follow Up With: Danielle Liu PA-C When: 09/23/2022 at 2:15 PM. She will also follow-up with neurology. Meaningful Use Info Meaningful Use Diagnoses (Choose all that apply): None applicable Discharge Plan Admission Admit Date/Time: 08/19/22 22:00 Primary Reason for Your Visit: Debility. Attending Provider: Lesley Ahumada Primary Care Provider: Danielle Liu Instructions Patient Instructions: Modafinil Oral tablet, Guillain-Godinez? Syndrome Additional Instructions / Restrictions: 1. I think you will decline if you are doing Home Health Care for longer than 2 weeks because we have been using the Muna-Lift to stand you and to ambulate and Home Health does not have a Muna Lift to use. You should start OP PT/OT néstor following DC from rehab. 2. You will be much better off if you get some long skirts, house dresses or XXL sweats to wear rather than leggings because tight clothing is very hard to get on you when you can not help. Do NOT wear shorts when you are using the sliding board because it will cause skin tears. Do the exercises given to you by the therapists at LEAST 1 time and day. Two times a day would be better. 3. We will allow you to take our wheelchair home to use until the SW can arrange for a appropriately sized WC and then we can switch out. 4. I suggest you talk with Dr. Cowart about the insomnia you have had with Provigil. I have given you some literature to read about Provigil and the potential side effects. 5. You are on higher doses of BP meds than you had been taking and your BP is still not adequately controlled at times......If you have a BP cuff at home take your BP at different times of the day and keep a record to take to your next appt with your PCP. 6. I have given you prescriptions for some Tramadol and Tizanidine for pain and muscle spasms. Because I am not your PCP I can only write for a weeks worth of these medications. If you need refills please call your PCP. 7. If you have any questions after leaving rehab please don't hesitate to call me. OFFICE: [phone] CELL: [phone] Discharge Orders/Prescriptions Prescriptions: New calcium carbonate [Oyster Shell Calcium 500] 500 mg calcium (1,250 mg) Tablet 500 mg PO BIDCM Qty: 0 0RF Rx Instructions: Take 1 tab twice a day with food. It is better absorbed when you take it twice a day. carvedilol 25 mg Tablet 25 mg PO BIDCM Qty: 60 0RF acetaminophen 325 mg Tablet 650 mg PO Q6H PRN PRN (Reason: pain or fever) Qty: 0 0RF sennosides-docusate sodium [Stool Softener-Stimulant Laxat] 8.6-50 mg Tablet 2 tab PO BID Qty: 120 0RF tizanidine 2 mg Tablet 2 mg PO Q8H PRN PRN (Reason: Muscle Spasm) Qty: 20 0RF lisinopril 40 mg Tablet 40 mg PO DAILY Qty: 30 0RF Continued dtxxghmlwav-iiw-eebzxbkya-hrb 149-hyalur 500 mg-500 mg-66.7 mg tablet 500-500-66.7 mg tablet 1 tab PO DAILY pantoprazole 40 mg Tablet,Delayed Release (Dr/Ec) 40 mg PO DAILY paroxetine HCl [Paxil] 20 mg Tablet 20 mg PO DAILY Multi-Vitamin 1 tablet DAILY tramadol 50 mg Tablet 50 mg PO Q6H PRN (Reason: pain 1-10) Qty: 28 0RF Discontinued lisinopril 10 mg tablet 40 mg PO QDAY hydrochlorothiazide 25 mg tablet 25 mg PO QAM docusate sodium 100 mg Capsule 100 mg PO BID gabapentin 300 mg Capsule 300 mg PO QHS calcium 600 mg Capsule 1,200 mg PO DAILY sennosides [senna] 8.6 mg Tablet 8.6 mg PO BID polyethylene glycol 3350 [Miralax] 17 gram Powder In Packet 17 g PO DAILY carvedilol 3.125 mg Tablet 3.125 mg PO BID Rx Instructions: must administer with a meal/food Referrals / Follow Up: [facility] ([facility]) [Other] - 10/12/22 1:30 pm [facility] [Other] - 09/28/22 3:30 pm Danielle Liu PA-C [Primary Care Provider] - 09/23/22 2:15 pm Disposition Disposition (needs filled in before D/C Order can be placed): Home Health Service Charges/Coding Visit Charges Inpatient E&M: 27906 Disch Hosp
[2022-09-18] MEDS: Gabapentin 100 MG Capsule 200 MG PO (21:33)
[2022-09-18] MEDS: Paroxetine 20 MG Tablet PO (21:34)
[2022-09-18] MEDS: traMADol 50 MG Tablet 100 MG PO (21:35)
[2022-09-18] MEDS: Senna/Docusate Sodium 1 Tablet 2 TABLET PO (21:35)
[2022-09-18 22:00] VITALS: PULSE 86; RESP 16; O2SAT 95
[2022-09-19] MEDS: Gabapentin 100 MG Capsule PO (07:17)
[2022-09-19 08:08] VITALS: BP 130/71; PULSE 85; RESP 16; TEMP 36.8; O2SAT 96
[2022-09-19] MEDS: Carvedilol 25 MG Tablet PO (08:36)
[2022-09-19] MEDS: Calcium (Elemental) 500 MG Tablet PO (08:37)
[2022-09-19] MEDS: Multivitamins,Therapeutic Tablet 1 TABLET PO (08:37)
[2022-09-19] MEDS: Lisinopril 40 MG Tablet PO (08:37)
[2022-09-19] MEDS: Pantoprazole Sodium 40 MG Tablet PO (08:37)
[2022-09-19] MEDS: Enoxaparin 40 MG/0.4 ML Syringe SC (08:37)
[2022-09-19] MEDS: Oxymetazoline 0.05% 1 SPRAY SPRAY.BTL 2 SPRAY NASAL (08:37)
[2022-09-19] MEDS: Menthol/Lanolin/Calamine/Znox 113 GM Tube 1 APPLIC TOPICAL (08:38)
== END 2022-09-19 13:40 | disposition home health service (06) | DRG 95 ==
PROVIDERS: Admitting Provider Internal Medicine; PCP Family Medicine; Visit Provider Internal Medicine
DX: G61.0 Guillain-Barre syndrome (principal); E87.1 Hypo-osmolality and hyponatremia; E78.5 Hyperlipidemia, unspecified; E86.0 Dehydration; I10 Essential (primary) hypertension; G47.33 Obstructive sleep apnea (adult) (pediatric); K59.00 Constipation, unspecified; G62.9 Polyneuropathy, unspecified; K21.9 Gastro-esophageal reflux disease without esophagitis; F41.8 Other specified anxiety disorders; T88 Other complications of surgical and medical care, not elsewhere classified; X50.1XXA Overexertion from prolonged static or awkward postures, initial encounter; N30.90 Cystitis, unspecified without hematuria; G47.00 Insomnia, unspecified; G47.419 Narcolepsy without cataplexy; R33.9 Retention of urine, unspecified; Z79.899 Other long term (current) drug therapy; B96.20 Unspecified Escherichia coli [E. coli] as the cause of diseases classified elsewhere; Y93.89 Activity, other specified; Y99.8 Other external cause status; Y92.239 Unspecified place in hospital as the place of occurrence of the external cause
CPT/HCPCS: 36415; 80048; 80053; 80076; 81001; 82306; 82570; 83036; 83735; 84100; 84300; 85014; 85018; 85025; 85027; 87077; 87086; 87088; 87186; 92523; 94668; 97110; 97112; 97116; 97129; 97130; 97162; 97166; 97530; 97535; 97542; 97802; 97803; 99252; G0463

== ENCOUNTER → 2022-12-02 | Outpatient (CLI) | payer MEDICARE, SELFPAY ==
--- NOTE | 2022-12-02 09:55 | BI_ITS ---
MAMMOGRAPHY - BILATERAL SCREENING REASON FOR EXAM: Female, 67 years old. Routine annual screening examination. PERTINENT HISTORY: Non-contributory. TECHNIQUE: Digital bilateral breast maria e (3D mammographic acquisition) in the CC and MLO projections. 2-D mediolateral oblique (MLO) and craniocaudad (CC) views of both breasts were obtained. CAD: Full Field Digital Mammography with Computer Added Detection was performed. COMPARISON: Comparison is made with prior study of November 27, 2021 and November 26, 2020. FINDINGS: Breast Composition: There are scattered areas of fibroglandular density. There are no dominant masses or suspicious calcifications. Stable small benign-appearing bilateral axillary lymph nodes. No other significant abnormalities are identified. There has been no significant change since the prior study. BI/SCRN MAMM (CAD)W/MARIA E BILAT IMPRESSION: Stable bilateral screening mammogram. Yearly follow-up mammogram recommended. (A) ASSESSMENT CATEGORY: BIRADS Category 2: Benign. A letter regarding these results will be sent to the patient by the facility within 30 days. Approximately 10% of breast cancers are not detected by mammography. A normal mammogram should not delay biopsy of a clinically suspicious abnormality. [id number] Electronically Signed: Donnie Marie MD at 10:55 EDT ,
== END | disposition home or self-care (01) ==
LOC: OPBI 09:54
PROVIDERS: PCP Family Medicine; Referring Provider Nurse Practitioner Women's Health; Visit Provider Nurse Practitioner Women's Health
DX: Z12.31 Encounter for screening mammogram for malignant neoplasm of breast (principal)
CPT/HCPCS: 77063; 77067

== ENCOUNTER → 2023-05-26 | Outpatient (CLI) | payer MEDICARE, SELFPAY ==
--- NOTE | 2023-05-26 07:16 | US_ITS ---
STUDY: ABDOMINAL ULTRASOUND - RIGHT UPPER QUADRANT; ELASTOGRAPHY REASON FOR VISIT: Female, 68 years old. Fatty infiltration of the liver. TECHNIQUE: Ultrasound evaluation of the right upper quadrant was performed with real-time and static murguia-scale imaging. Point quantification shear wave elastography was performed (Wanderable). TECHNICAL QUALITY: Adequate. COMPARISON: None. FINDINGS: Liver: The liver measures 17.5 cm. There is increased echogenicity consistent with fatty infiltration. The bile ducts are within normal limits. There is hepatic color flow. The direction of portal flow is hepatopetal. There is no demonstrated mass lesion. Median liver stiffness measured 8 kPa. Gallbladder: Normal distended gallbladder. The gallbladder wall measures 2.1 mm. There is a negative sonographic Lu''s sign. There is no pericholecystic fluid. There are no gallstones. Common Bile Duct (C.B.D.): The common bile duct measures 5.3 mm. Pancreas: There is increased echogenicity of the pancreas. There is no demonstrated pancreatic mass or cyst. Right Kidney: Normal size of the right kidney. The right kidney measures 12.2 cm x 5.8 cm x 5.6 cm. Normal renal cortex. The right cortex measures 1.6 cm. There is no demonstrated renal mass or cyst. There is no right hydronephrosis. US/ABD Limited w/ Elastography IMPRESSION: 1. Liver stiffness measures 8 kPa compatible with F2-F3 (Mild to moderate liver fibrosis) Metavir score. Electronically Signed: Donnie Marie MD at 15:11 EST ,
== END | disposition home or self-care (01) ==
PROVIDERS: PCP Family Medicine; Referring Provider Internal Medicine Gastroenterology; Visit Provider Internal Medicine Gastroenterology
DX: K76.0 Fatty (change of) liver, not elsewhere classified (principal)
CPT/HCPCS: 76705; 76981

== ENCOUNTER 2024-01-05 16:33 | Emergency (ER) | payer MEDICARE, SELFPAY ==
[2024-01-05] VITALS (9 sets, daily range): BP systolic 143–181; BP diastolic 66–95; PULSE 66–90; RESP 17–26; TEMP 36.1–36.7; O2SAT 94–97; BMI 35.1
[2024-01-05 17:12] LABS: Absolute Lymphocyte Count 1.28 X10^3/uL (0.83-4.51); Absolute Neutrophil Count 3.2 X10^3/uL (2.0-7.7); Basophil# 0.06 X10^3/uL; Basophil% 1.1 % (0-1); Eosinophil# 0.11 X10^3/uL; Eosinophils% 2.1 % (0-5); Hematocrit 41.7 % (37-47); Hemoglobin 14.3 g/dL (12.0-15.0); Lymphocyte # 1.28 X10^3/ul (0.83-4.51); Lymphocyte % 24.4 % (19-41); Mean Corp Hgb Conc 34.3 g/dL (32-36); Mean Corpuscular Hgb 32.8 pg (27.0-32.0); Mean Corpuscular Volume 95.6 fL (81-99); Mean Platelet Vol. 9.8 fl (6.2-12.0); Monocyte# 0.52 X10^3/uL; Monocyte% 9.9 % (0-10); NRBC Flagged by Analyzer 0 % (0-5); Neutrophil # 3.19 X10^3/uL (2.7-7.7); Neutrophil % 60.8 % (47-70); Platelet Count 233 K/mm3 (150-450); RBC Distribution Width CV 13.2 % (11.6-14.6); RBC Distribution Width SD 46.1 fl (35.1-43.9); Red Blood Count 4.36 M/mm3 (4.2-5.4); White Blood Count 5.3 K/mm3 (4.4-11.0)
[2024-01-05 17:30] LABS: Anion Gap 4 (5-15); BUN 14 mg/dL (7-18); Calcium,Total 9.4 mg/dL (8.5-10.1); Chloride 105 mmol/L (98-107); Creatinine, Serum 0.87 mg/dL (0.55-1.02); EST Glomerular Filtration Rate 68 mL/min (>60); Est Glom Filt Rate - Afr Amer 83 mL/min (>60); Estimated Creatinine Clearance 75.86 ml/min; Glucose 143 mg/dL (74-106); Potassium 3.5 mmol/L (3.5-5.1); Sodium Level 138 mmol/L (136-145)
--- NOTE | 2024-01-05 19:06 | CT_ITS ---
STUDY: CTA CHEST REASON FOR EXAM: Female, 68 years old. Elevated D-dimer RADIATION DOSAGE (If Supplied By Facility): CTDIvol = ( 19.79 ) mGy, DLP = ( 532.73 ) mGycm TECHNIQUE: The examination was performed with the intravenous administration of IV 100mL Isovue-370. Post-processing of the angiographic images was performed, with multiplanar reformation and 3D reconstruction. Individualized dose optimization techniques were used for this CT. COMPARISON: None. FINDINGS: Normal enhancement of the main pulmonary artery and right and left pulmonary arteries. Normal enhancement of the bilateral peripheral pulmonary arteries. There is no demonstrated pulmonary embolism. Normal thoracic aorta and visualized great vessels. There is no demonstrated aortic dissection. Normal heart and pericardium. Normal mediastinum. Normal hilar regions. Normal visualized trachea and bronchi. The lungs are well expanded. Normal pulmonary parenchyma. Normal pleura. Normal chest wall structures. There are degenerative changes of thoracic spine. Normal visualized upper abdomen. CT/CTA Chest W/WO Contrast IMPRESSION: Normal CTA chest examination, without a demonstrated pulmonary embolism or arterial dissection. No acute chest disease. Electronically Signed: Sixto Monzon MD at 20:59 EDT ,
--- NOTE | 2024-01-05 19:16 | EX.ED.DYSGE1 ---
HPI History of Present Illness Chief Complaint: Abn Labs Informant: patient Onset/Context/Timing Onset: Weeks (2) Context: Gradual Onset Timing: Waxes and wanes Quality: Dyspnea on exertion Location: Chest Worsened by: Exertion Relieved by: Rest Narrative Narrative: Patient presents with shortness of breath that has been getting progressively worse over the past 2 weeks. Patient states she saw her senior quality engineer today and told him that she was having intermittent shortness of breath over the past 2 weeks. Patient states it is worse with any exertion. Patient states that her senior quality engineer ordered an outpatient D-dimer which came back positive. Patient was then told to come to the emergency department for further evaluation. Patient states her breathing is worse with any exertion. Patient states it is better with rest. Patient denies any cough. Patient denies any fevers or chills. Patient denies any chest pain. Patient does admit to recent travel with a trip to [place] recently. Patient denies any pain or swelling to her legs. [facility] Medical History Obstructive sleep apnea Anxiety with depression Narcolepsy Bone spur of left foot Hyperlipidemia GERD (gastroesophageal reflux disease) Hypertension Home Medications ?Medication ?Instructions ?Recorded ?Last Taken ?Type paroxetine HCl 20 mg tablet (Paxil) 20 mg PO DAILY ANTI DEPRESSANT 08/20/22 01/04/24 History lisinopril 40 mg tablet 40 mg PO DAILY #30 tabs 09/18/22 01/05/24 Rx vitamin E (dl, acetate) 45 mg (100 45 mg PO DAILY 12/02/22 01/05/24 History unit) capsule calcium carbonate 600 mg-vitamin 2 tab PO DAILY 01/05/24 01/05/24 History D3 10 mcg (400 unit) tablet glucosamine-chondroitin 750 mg-600 2 tab PO DAILY SUPPLEMENT 01/05/24 01/05/24 History mg tablet hydrochlorothiazide 25 mg tablet 25 mg PO DAILY 01/05/24 01/05/24 History levothyroxine 25 mcg tablet 25 mcg PO DAILY 01/05/24 01/05/24 History modafinil 200 mg tablet 100 mg PO 1200 01/05/24 01/05/24 History modafinil 200 mg tablet 200 mg PO DAILY 01/05/24 01/05/24 History multivitamin,tx-minerals 1 tab PO DAILY 01/05/24 01/05/24 History omega 1-fdc-vfc-fish oil 60 mg-90 2 cap PO DAILY 01/05/24 01/05/24 History mg-500 mg capsule (Fish Oil) omeprazole 20 mg capsule,delayed 20 mg PO DAILY 01/05/24 01/05/24 History release rivaroxaban 15 mg tablet (Xarelto) 15 mg PO BID #42 TABLETS 01/05/24 Unknown Rx rosuvastatin 5 mg tablet 5 mg PO DAILY 01/05/24 01/04/24 History Allergy/AdvReac Type Severity Reaction Status Date / Time vaccine adjuvant system, AdvReac Other Verified 01/05/24 16:36 [id number] liposomal (From Shingrix (PF)) varicella-zoster virus AdvReac Other Verified 01/05/24 16:36 glycoprotein E, recombinant (From Shingrix (PF)) Family History Father Cirrhosis of liver CAD (coronary artery disease) Mother CAD (coronary artery disease) Surgical History History of reverse total replacement of shoulder joint Hx of foot surgery S/P tonsillectomy S/p bilateral carpal tunnel release S/P right knee arthroscopy Status post right partial knee replacement Status post left partial knee replacement Social History Smoking Status: Never smoker alcohol intake: current alcohol intake frequency: holidays/special occasions only details: none substance use type: does not use caffeine: Yes what type of physical activity do you participate in: walking seatbelt use: always do you feel safe at home: Yes additional social history: - Leonid- Self employed in [employer] 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 ROS ROS ED Constitutional Constitutional ED: Denies chills or fever(s) Eyes Eyes: Denies blurry vision or change in vision ENT ENT ED: Denies rhinorrhea or sore throat Cardiovascular Cardiovascular: Denies chest pain or palpitations Respiratory/Chest Respiratory/Chest: Reports dyspnea; Denies cough Gastrointestinal Gastrointestinal: Denies nausea or vomiting Genitourinary Genitourinary ED: Denies dysuria or hematuria Musculoskeletal Musculoskeletal: Denies back pain or neck pain Integumentary Denies abscess or rash Neurologic Neurologic: Denies headache(s) or weakness Allergic/Immunologic Allergic/Immunologic ED: Denies mouth swelling or urticaria EXAM Physical Exam Const Vital Signs: 01/05/24 16:34 01/05/24 16:36 01/05/24 17:36 Temperature 97.9 F 97.9 F 97.9 F Temperature Source Temporal Temporal Temporal Pulse Rate 90 90 71 Respiratory Rate 17 17 18 Respiratory Effort Respiratory Pattern Blood Pressure 181/89 H 181/89 H 181/95 H Blood Pressure Mean 119 119 123 Pulse Ox 97 97 97 Oxygen Delivery Method Room Air Room Air Room Air 01/05/24 18:33 01/05/24 18:58 01/05/24 19:00 Temperature 98.1 F Temperature Source Oral Pulse Rate 76 74 Respiratory Rate 23 H 23 H Respiratory Effort Short of Breath Respiratory Pattern Normal Blood Pressure 161/76 H 161/76 H Blood Pressure Mean 104 104 Pulse Ox 97 97 Oxygen Delivery Method Room Air Room Air 01/05/24 20:00 01/05/24 20:00 01/05/24 21:00 Temperature 97.0 F L 97.4 F L Temperature Source Temporal Temporal Pulse Rate 69 66 71 Respiratory Rate 26 H 26 H 21 H Respiratory Effort Respiratory Pattern Blood Pressure 154/66 H 154/66 H 143/84 H Blood Pressure Mean 95 95 103 Pulse Ox 95 95 95 Oxygen Delivery Method Room Air Room Air Room Air Positive well nourished and well developed General Appearance ED: well developed and NAD HEENT Reports moist mucous membranes Neck supple and no JVD Resp normal respiratory effort and clear to auscultation bilaterally Cardio regular rate and regular rhythm GI non-tender and non-distended Palpation: soft Extremity normal to inspection General Extremety ED: Negative for tenderness Neuro oriented x3, CN's II-XII intact bilaterally and no sensory deficits noted Sensorium / Orientation: alert Motor Exam: strength 5/5 throughout Psych mental status grossly normal MDM MDM MDM Narrative Medical decision making narrative: Differential diagnosis includes pulmonary embolism, pneumonia, hypertensive urgency, uncontrolled hypertension, and electrolyte abnormality. CBC will be obtained to assess for leukocytosis and anemia. Basic metabolic profile will be obtained to assess for electrolyte abnormality and renal function. D-dimer will be obtained to assess for pulmonary embolism. CTA of the chest will be obtained to assess for pulmonary embolism and aortic dissection. Lab Data Attestation: I reviewed the patient's lab results. Lab results narrative: CBC was reviewed and was within normal limits. Basic metabolic profile was reviewed and was within normal limits. D-dimer was reviewed and was elevated at 1.1. Labs: Laboratory Results - last 24 hr 01/05/24 17:05 WBC 5.3 RBC 4.36 Hgb 14.3 Hct 41.7 MCV 95.6 MCH 32.8 H MCHC 34.3 RDW Std Deviation 46.1 H RDW Coeff of Yousuf 13.2 Plt Count 233 MPV 9.8 Immature Gran % (Auto) 1.700 H Neut % (Auto) 60.8 Lymph % (Auto) 24.4 [place] % (Auto) 9.9 Eos % (Auto) 2.1 Baso % (Auto) 1.1 H Absolute Neuts (auto) 3.2 Absolute Lymphs (auto) 1.28 Nucleated RBC % 0 D-Dimer Quant (PE/DVT) 1.10 H* Sodium 138 Potassium 3.5 Chloride 105 Carbon Dioxide 29.0 Anion Gap 4 L BUN 14 Creatinine 0.87 Estim Creat Clear Calc 75.86 Est GFR (MDRD) Af Amer 83 Est GFR (MDRD) Non-Af 68 BUN/Creatinine Ratio 16.0 Glucose 143 H Calcium 9.4 Radiography Diagnostic Testing: Clinical Impression(s) from Imaging Studies Chest CTA 01/05/24 19:06 IMPRESSION: Normal CTA chest examination, without a demonstrated pulmonary embolism or arterial dissection. No acute chest disease. Electronically Signed: Sixto Monzon MD at 20:59 EDT Reading Location ID and State: [email or web address] / [place] , Service support , Venous Duplex 01/05/24 21:10 IMPRESSION: DVT in the left proximal and mid femoral vein. Normal right lower extremity. The Nonstandard Physician Communication protocol was initiated. Electronically Signed: Sixto Monzon MD at 22:13 EDT , Discharge Plan Triage Chief Complaint: Abn Labs ED Provider: Yaron Weaver Dx/Rx/DC Orders Clinical Impression: Acute deep vein thrombosis (DVT) of femoral vein of left lower extremity, Hypertension Instructions: ED Deep Vein Thrombosis (DVT) Prescriptions: New Xarelto 15 mg tablet 15 mg PO BID Qty: 42 0RF No Action vitamin E (dl, acetate) 45 mg (100 unit) capsule 45 mg PO DAILY paroxetine HCl [Paxil] 20 mg Tablet 20 mg PO DAILY lisinopril 40 mg Tablet 40 mg PO DAILY Qty: 30 0RF calcium carbonate-vitamin D3 600 mg-10 mcg (400 unit) tablet 2 tab PO DAILY glucosamine-chondroitin 750-600 mg tablet 2 tab PO DAILY levothyroxine 25 mcg tablet 25 mcg PO DAILY modafinil 200 mg tablet 200 mg PO DAILY Rx Instructions: TAKE 1 TAB IN THE AM, AND 1/2 TAB IN THE AFTERNOON hydrochlorothiazide 25 mg tablet 25 mg PO DAILY modafinil 200 mg tablet 100 mg PO 1200 Rx Instructions: TAKE 1 TAB IN THE AM, AND 1/2 TAB IN THE AFTERNOON rosuvastatin 5 mg tablet 5 mg PO DAILY omeprazole 20 mg capsule,delayed release(DR/EC) 20 mg PO DAILY multivitamin,tx-minerals Tablet 1 tab PO DAILY omega 7-sjp-[id number]-fish oil [Fish Oil] 60-90-500 mg capsule 2 cap PO DAILY Patient Comments: PT STATES SHE TAKES A FISH OIL CALLED PHYTOMEGA Primary Care Provider: Danielle Liu Referrals: Danielle Liu PA-C [Primary Care Provider] - Print Language: Hong Konger
--- NOTE | 2024-01-05 21:10 | US_ITS ---
STUDY: VENOUS DOPPLER ULTRASOUND - BILATERAL LOWER EXTREMITIES REASON FOR EXAM: Female, 68 years old. ELEVATED D DIMER TECHNIQUE: Ultrasound evaluation of the deep vein system to include abarca-scale imaging and compression was performed. Abarca-scale imaging and Doppler sonographic evaluation, including duplex spectral analysis and qualitative color flow sonography, was performed. COMPARISON: None. FINDINGS: RIGHT LEG Common Femoral Vein: Normal compression, spontaneity and augmentation. Normal color Doppler. Common Femoral Vein/Greater Saphenous Junction: Normal compression, spontaneity and augmentation. Normal color Doppler. Femoral Proximal: Normal compression, spontaneity and augmentation. Normal color Doppler. Femoral Middle: Normal compression, spontaneity and augmentation. Normal color Doppler. Femoral Distal: Normal compression, spontaneity and augmentation. Normal color Doppler. Popliteal Vein: Normal compression, spontaneity and augmentation. Normal color Doppler. Posterior Tibial Vein: Normal compression, spontaneity and augmentation. Normal color Doppler. Peroneal Vein: Normal compression, spontaneity and augmentation. Normal color Doppler. LEFT LEG Common Femoral Vein: Normal compression, spontaneity and augmentation. Normal color Doppler. Common Femoral Vein/Greater Saphenous Junction: Normal compression, spontaneity and augmentation. Normal color Doppler. Femoral Proximal: Absent compression, absent spontaneous flow and augmentation, internal echoes are seen. Findings are consistent with DVT. Femoral Middle: Absent compression, absent spontaneous flow and augmentation, internal echoes are seen. Findings are consistent with DVT. Femoral Distal: Normal compression, spontaneity and augmentation. Normal color Doppler. Popliteal Vein: Normal compression, spontaneity and augmentation. Normal color Doppler. Posterior Tibial Vein: Normal compression, spontaneity and augmentation. Normal color Doppler. Peroneal Vein: Normal compression, spontaneity and augmentation. Normal color Doppler. 2.8 cm popliteal cyst. 2.8 cm popliteal cyst. US/Venous Duplex Imag/Ricardo Extrem IMPRESSION: DVT in the left proximal and mid femoral vein. Normal right lower extremity. The Nonstandard Physician Communication protocol was initiated. Electronically Signed: Sixto Monzon MD at 22:13 EDT ,
[2024-01-05] MEDS: Rivaroxaban 15 MG Tablet PO (22:29)
== END 2024-01-05 22:36 | disposition home or self-care (01) ==
PROVIDERS: Emergency Provider Emergency Medicine; PCP Family Medicine; Visit Provider Emergency Medicine
DX: I82.412 Acute embolism and thrombosis of left femoral vein (principal); I10 Essential (primary) hypertension; E78.5 Hyperlipidemia, unspecified; G47.33 Obstructive sleep apnea (adult) (pediatric); K21.9 Gastro-esophageal reflux disease without esophagitis; Z79.899 Other long term (current) drug therapy
CPT/HCPCS: 36415; 71275; 80048; 85025; 85379; 93970; 99283; Q9967

== ENCOUNTER → 2024-01-05 | Outpatient (CLI) | payer MEDICARE, SELFPAY ==
[2024-01-05 13:31] LABS: D-Dimer Quantitative (DVT/PE) 0.99 FEU/ug/m (0.27-0.49)
== END | disposition home or self-care (01) ==
LOC: OLS.ABSOLU 12:40 → LAB 15:40
PROVIDERS: PCP Family Medicine; Visit Provider Internal Medicine Pulmonary Disease
DX: R06.02 Shortness of breath (principal)
CPT/HCPCS: 36415; 85379

== ENCOUNTER → 2024-01-06 | Outpatient (CLI) | payer MEDICARE, SELFPAY ==
--- NOTE | 2024-01-06 09:58 | BI_ITS ---
MAMMOGRAPHY - BILATERAL SCREENING REASON FOR EXAM: Female, 68 years old. Routine annual screening examination. PERTINENT HISTORY: Non-contributory. TECHNIQUE: Digital bilateral breast maria e (3D mammographic acquisition) in the CC and MLO projections. 2-D mediolateral oblique (MLO) and craniocaudad (CC) views of both breasts were obtained. CAD: Full Field Digital Mammography with Computer Added Detection was performed. COMPARISON: Comparison is made with prior study dated December 02, 2022 and November 27, 2021. FINDINGS: Breast Composition: There are scattered areas of fibroglandular density. There are no dominant masses or suspicious calcifications. Stable left axillary lymph nodes. No other significant abnormalities are identified. There has been no significant change since the prior study. BI/SCRN MAMM (CAD)W/MARIA E BILAT IMPRESSION: Stable bilateral screening mammogram. Yearly follow-up mammogram recommended. (A) ASSESSMENT CATEGORY: BIRADS Category 2: Benign. A letter regarding these results will be sent to the patient by the facility within 30 days. Approximately 10% of breast cancers are not detected by mammography. A normal mammogram should not delay biopsy of a clinically suspicious abnormality. [id number] Electronically Signed: Donnie Marie MD at 10:44 EDT ,
== END | disposition home or self-care (01) ==
LOC: OPBI 09:58
PROVIDERS: PCP Family Medicine; Referring Provider Nurse Practitioner Women's Health; Visit Provider Nurse Practitioner Women's Health
DX: Z12.31 Encounter for screening mammogram for malignant neoplasm of breast (principal)
CPT/HCPCS: 77063; 77067

== ENCOUNTER → 2024-04-11 | Outpatient (CLI) | payer MEDICARE, SELFPAY ==
[2024-04-11 12:38] LABS: Partial Thromboplast Time 37.6 Seconds (24.1-36.2)
[2024-04-11 13:13] LABS: International Normalized Ratio 1.7; Prothrombin Time (Protime)PT. 20.1 SECONDS (11.7-14.9)
[2024-04-11 14:24] LABS: AST(SGOT) 43 U/L (15-37); Alanine Aminotransfer ALT/SGPT 69 U/L (13-56); Albumin, Serum 3.8 g/dL (3.2-5.0); Alkaline Phosphatase 80 U/L (45-117); Anion Gap 7 (5-15); BUN 16 mg/dL (7-18); BUN/Creat Ratio 17.5 RATIO (10-20); Chloride 103 mmol/L (98-107); Creatinine, Serum 0.91 mg/dL (0.55-1.02); EST Glomerular Filtration Rate 65 mL/min (>60); Est Glom Filt Rate - Afr Amer 79 mL/min (>60); Globulin 3.8 g/dL (2.2-4.2); Glucose 135 mg/dL (74-106); Potassium 3.9 mmol/L (3.5-5.1); Protein, Total 7.6 g/dL (6.4-8.2); Sodium Level 137 mmol/L (136-145)
[2024-04-12 08:12] LABS: AFP, Tumor Marker 2.9 ng/mL (0.0-9.2)
== END | disposition home or self-care (01) ==
LOC: MTLAB 09:07
PROVIDERS: PCP Family Medicine; Referring Provider Internal Medicine Gastroenterology; Visit Provider Internal Medicine Gastroenterology
DX: K74.00 Hepatic fibrosis, unspecified (principal)
CPT/HCPCS: 36415; 80053; 82105; 85610; 85730

== ENCOUNTER → 2025-01-22 | Outpatient (CLI) | payer MEDICARE, SELFPAY | END | disposition home or self-care (01) | LOC: OPBI 08:38 | PROVIDERS: PCP Family Medicine; Referring Provider Nurse Practitioner Women's Health; Visit Provider Nurse Practitioner Women's Health | DX: Z12.31 Encounter for screening mammogram for malignant neoplasm of breast (principal) | CPT/HCPCS: 77063; 77067 ==